=== PATIENT | female | born 1955 | race Caucasian/White ===

== ENCOUNTER → 2016-09-26 | Outpatient (CLI) | payer OTHER ==
--- NOTE | 2016-09-26 09:10 | CT ---
EXAMINATION TYPE: CT brain w con DATE OF EXAM: 09/26/2016 7:16 AM COMPARISON: NONE HISTORY: Memory Loss for about [address] DLP: 1036 mGycm Automated exposure control for dose reduction was used. CONTRAST: CT scan of the head is performed with IV Contrast, patient injected with 100 mL of Omnipaque 300. FINDINGS: There is no abnormal enhancing mass or midline shift identified. The ventricles and sulci are within normal limits in size. [place]-white matter differentiation is preserved. The globes are intact and th e visualized sinuses are clear. IMPRESSION: Unremarkable study.
== END ==
LOC: RADCTMAIN 06:45
PROVIDERS: ATTEND Family Medicine
DX: R41.83 Borderline intellectual functioning (principal)
CPT/HCPCS: 70460; Q9967

== ENCOUNTER → 2017-08-23 | Outpatient (CLI) | payer OTHER ==
--- NOTE | 2017-08-23 19:55 | EEG ---
ELECTROENCEPHALOGRAM REPORT DATE OF SERVICE: 08/23/2017. REASON FOR TESTING: Seizures. CURRENT ANTIEPILEPTIC MEDICATIONS: Keppra. DESCRIPTION OF THE PROCEDURE: This EEG was performed using a 21 channel digital electroencephalograph, following international 10-20 system. DESCRIPTION OF THE RECORDING: From the beginning of the tracing, with patient's eyes closed, the background rhythm was mostly consisting of 9-10 Hz alpha frequency in the posterior occipital leads. No obvious asymmetry is seen. Photic stimulation was performed with a good driving response seen. No pathological waves were elicited. Hyperventilation was not performed. Occasional muscle artifacts are seen. The patient remains awake throughout the tracing. No epileptiform discharges were seen. Her EKG lead showed a regular rate and rhythm. INTERPRETATION: This awake EEG can be considered within normal limits. There was no asymmetry seen. No epileptiform discharges were noticed. The absence of epileptiform discharges does not rule out the diagnosis of epilepsy; therefore clinical correlation is recommended. Thank you, Dr. Griffith, for allowing me for allowing me to participate in the care of your patient. If you have any questions, please feel free to contact me. MMODL / IJN: [id number] /
== END | disposition home or self-care (01) ==
LOC: NEUROMAIN 09:23
PROVIDERS: ATTEND Family Medicine
DX: G40.89 Other seizures (principal)
CPT/HCPCS: 95819

== ENCOUNTER 2020-06-27 00:22 | Emergency (ER) | payer OTHER ==
[2020-06-27] MEDS ORDERED: diphenhydrAMINE 50 MG/ML 1 ML VIAL IVP STA (01:01)
[2020-06-27] MEDS ORDERED: METOCLOPRAMIDE 5 MG/ML 2 ML VIAL IVP STA (01:01)
[2020-06-27] MEDS ORDERED: MORPHINE SULFATE 4 MG/ML SYRINGE IV STA (01:01)
[2020-06-27] MEDS ORDERED: SODIUM CHLORIDE 0.9% 1,000 ML IV STA (01:01)
[2020-06-27] MEDS ORDERED: SODIUM CHLORIDE 0.9% 500 ML 500 ML IV STA (01:01)
[2020-06-27 01:44] LABS: Basophils % (A) 1 %; Eosinophils % (A) 0 %; HCT 44.8 % (34.0-46.0); HGB 15.5 gm/dL (11.4-16.0); Lymphocytes # (A) 0.7 k/uL (1.0-4.8); Lymphocytes % (A) 17 %; MCH 29.6 pg (25.0-35.0); MCHC 34.5 g/dL (31.0-37.0); MCV 85.6 fL (80.0-100.0); Mean Platelet Volume 7.1; Monocytes # (A) 0.2 k/uL (0-1.0); Monocytes % (A) 5 %; Neutrophils # (A) 3.2 k/uL (1.3-7.7); Neutrophils % (A) 75 %; Platelet Count 252 k/uL (150-450); RBC 5.24 m/uL (3.80-5.40); RDW 12.8 % (11.5-15.5); WBC 4.3 k/uL (3.8-10.6)
[2020-06-27 01:55] LABS: ALT 15 U/L (4-34); AST 30 U/L (14-36); African American GFR (CKD) >90 (>60 ml/min/1.73 sqM); Albumin 4.1 g/dL (3.5-5.0); Alkaline Phosphatase 47 U/L (38-126); Anion Gap 12 mmol/L; Blood Urea Nitrogen 23 mg/dL (7-17); C Reactive Protein 41.5 mg/L (<10.0); Calcium 9.7 mg/dL (8.4-10.2); Carbon Dioxide 21 mmol/L (22-30); Chloride 102 mmol/L (98-107); Glucose 105 mg/dL (74-99); Lipase 128 U/L (23-300); Non-African American GFR(CKD) >90 (>60 ml/min/1.73 sqM); Potassium 4.2 mmol/L (3.5-5.1); Sodium 135 mmol/L (137-145); Total Bilirubin 0.6 mg/dL (0.2-1.3); Total Protein 7.1 g/dL (6.3-8.2)
--- NOTE | 2020-06-27 02:53 | ED ---
General Adult HPI - General Chief complaint: Shortness of Breath Stated complaint: ALYCIA, Covid + Time Seen by Provider: 06/27/20 00:30 Source: patient Mode of arrival: wheelchair Limitations: no limitations - History of Present Illness Initial comments: 64-year-old female patient presents to the emergency department today for evaluation of nausea. Patient states she was diagnosed with Covid on . States she started having symptoms on Sunday. States that she is having some vomiting. She does have a slight cough. Denies shortness of breath. States she is having mild discomfort to her chest. She denies any diarrhea. Denies abdominal pain. Denies any fever or chills. Patient denies any recent rash, back pain, numbness, tingling, dizziness, weakness, hematuria, dysuria, urinary urgency, urinary frequency, headache, visual changes, or any other complaints. - Related Data Home Medications Medication Instructions Recorded Confirmed Cholecalciferol [Vitamin D3 (25 5,000 unit PO DAILY 06/27/17 06/27/17 Mcg = 1000 Iu)] HYDROcodone/APAP 7.5-325MG [[place] 1 tab PO Q4H PRN 06/27/17 06/27/17 7.5-325] Pravastatin Sodium [Pravachol] 20 mg PO DAILY 06/27/17 06/27/17 Previous Rx's Medication Instructions Recorded levETIRAcetam [Keppra] 750 mg PO Q12H #180 tab 06/29/17 Allergies Allergy/AdvReac Type Severity Reaction Status Date / Time No Known Allergies Allergy Verified 06/27/20 00:38 Review of Systems ROS Statement: Those systems with pertinent positive or pertinent negative responses have been documented in the HPI. ROS Other: All systems not noted in ROS Statement are negative. Past Medical History Past Medical History: Fibromyalgia History of Any Multi-Drug Resistant Organisms: None Reported Past Surgical History: Hysterectomy, Orthopedic Surgery Past Psychological History: No Psychological Hx Reported Smoking Status: Never smoker Past Alcohol Use History: None Reported Past Drug Use History: None Reported General Exam Limitations: no limitations General appearance: alert, in no apparent distress, other (Physical well- developed, well-nourished adult female patient in no acute distress. Vital signs upon presentation are temperature 99.3F, pulse 80, respirations 20, blood pressure 131/66, pulse ox 93% on room air.) Eye exam: Present: normal appearance, PERRL, EOMI. Absent: scleral icterus, conjunctival injection, periorbital swelling ENT exam: Present: normal exam, normal oropharynx, mucous membranes moist Respiratory exam: Present: normal lung sounds bilaterally. Absent: respiratory distress, wheezes, rales, rhonchi, stridor Cardiovascular Exam: Present: regular rate, normal rhythm, normal heart sounds. Absent: systolic murmur, diastolic murmur, rubs, gallop, clicks GI/Abdominal exam: Present: soft, normal bowel sounds. Absent: distended, tenderness, guarding, rebound, rigid Neurological exam: Present: alert, oriented X3, CN II-XII intact Psychiatric exam: Present: normal affect, normal mood Skin exam: Present: warm, dry, intact, normal color. Absent: rash Course Vital Signs 06/27/20 06/27/20 06/27/20 00:35 00:38 02:23 Temperature 99.3 F Pulse Rate 80 Respiratory 20 18 Rate Blood Pressure 131/66 O2 Sat by Pulse 93 L 96 Oximetry 06/27/20 02:29 Temperature Pulse Rate 78 Respiratory 14 Rate Blood Pressure O2 Sat by Pulse 97 Oximetry EKG Findings - EKG Comments: EKG Findings:: EKG obtained at shows normal sinus rhythm with a ventricular rate is 76, TN interval 122, QRS duration 82, QT 414, QTC 465. No evidence of ST elevation or depression. Medical Decision Making - Medical Decision Making 63-year-old female patient presents to the emergency department today for evaluation of nausea. Patient states she was diagnosed with Covid on . States that she has been unable to eat or drink. It has been taking Zofran without relief. Physical examination was unremarkable. Abdomen is soft and nontender. Lungs are clear to auscultation. Vital signs are satisfactory. She will be discharged to follow up with her primary care physician for recheck in 1-2 days. Given prescription for Reglan. Return parameters were discussed in detail. She verbalizes understanding and agrees with this plan. - Lab Data Result diagrams: 06/27/20 01:30 06/27/20 01:30 Lab Results 06/27/20 06/27/20 06/27/20 Range/Units 01:30 01:30 01:30 WBC 4.3 (3.8-10.6) k/uL RBC 5.24 (3.80-5.40) m/uL Hgb 15.5 (11.4-16.0) gm/dL Hct 44.8 (34.0-46.0) % MCV 85.6 (80.0-100.0) fL MCH 29.6 (25.0-35.0) pg MCHC 34.5 (31.0-37.0) g/dL RDW 12.8 (11.5-15.5) % Plt Count 252 (150-450) k/uL MPV 7.1 Neutrophils % 75 % Lymphocytes % 17 % Monocytes % 5 % Eosinophils % 0 % Basophils % 1 % Neutrophils # 3.2 (1.3-7.7) k/uL Lymphocytes # 0.7 L (1.0-4.8) k/uL Monocytes # 0.2 (0-1.0) k/uL Eosinophils # 0.0 (0-0.7) k/uL Basophils # 0.0 (0-0.2) k/uL D-Dimer (<0.60) mg/L FEU Sodium 135 L (137-145) mmol/L Potassium 4.2 (3.5-5.1) mmol/L Chloride 102 (98-107) mmol/L Carbon Dioxide 21 L (22-30) mmol/L Anion Gap 12 mmol/L BUN 23 H (7-17) mg/dL Creatinine 0.58 (0.52-1.04) mg/dL Est GFR (CKD-EPI)AfAm >90 (>60 ml/min/1.73 sqM) Est GFR (CKD-EPI)NonAf >90 (>60 ml/min/1.73 sqM) Glucose 105 H (74-99) mg/dL Plasma Lactic Acid Jose 1.0 (0.7-2.0) mmol/L Calcium 9.7 (8.4-10.2) mg/dL Total Bilirubin 0.6 (0.2-1.3) mg/dL AST 30 (14-36) U/L ALT 15 (4-34) U/L Alkaline Phosphatase 47 (38-126) U/L Troponin I (0.000-0.034) ng/mL C-Reactive Protein 41.5 H (<10.0) mg/L Total Protein 7.1 (6.3-8.2) g/dL Albumin 4.1 (3.5-5.0) g/dL Lipase 128 (23-300) U/L 06/27/20 06/27/20 Range/Units 01:30 01:30 WBC (3.8-10.6) k/uL RBC (3.80-5.40) m/uL Hgb (11.4-16.0) gm/dL Hct (34.0-46.0) % MCV (80.0-100.0) fL MCH (25.0-35.0) pg MCHC (31.0-37.0) g/dL RDW (11.5-15.5) % Plt Count (150-450) k/uL MPV Neutrophils % % Lymphocytes % % Monocytes % % Eosinophils % % Basophils % % Neutrophils # (1.3-7.7) k/uL Lymphocytes # (1.0-4.8) k/uL Monocytes # (0-1.0) k/uL Eosinophils # (0-0.7) k/uL Basophils # (0-0.2) k/uL D-Dimer 0.63 H (<0.60) mg/L FEU Sodium (137-145) mmol/L Potassium (3.5-5.1) mmol/L Chloride (98-107) mmol/L Carbon Dioxide (22-30) mmol/L Anion Gap mmol/L BUN (7-17) mg/dL Creatinine (0.52-1.04) mg/dL Est GFR (CKD-EPI)AfAm (>60 ml/min/1.73 sqM) Est GFR (CKD-EPI)NonAf (>60 ml/min/1.73 sqM) Glucose (74-99) mg/dL Plasma Lactic Acid Jose (0.7-2.0) mmol/L Calcium (8.4-10.2) mg/dL Total Bilirubin (0.2-1.3) mg/dL AST (14-36) U/L ALT (4-34) U/L Alkaline Phosphatase (38-126) U/L Troponin I <0.012 (0.000-0.034) ng/mL C-Reactive Protein (<10.0) mg/L Total Protein (6.3-8.2) g/dL Albumin (3.5-5.0) g/dL Lipase (23-300) U/L - Radiology Data Radiology results: report reviewed, image reviewed Disposition Clinical Impression: COVID-19, Nausea Disposition: HOME SELF-CARE Condition: Good Instructions (If sedation given, give patient instructions): Acute Nausea and Vomiting (ED), Viral Syndrome (ED) Additional Instructions: Take medications as directed. [place] diet. Increase fluids. Follow-up through primary care physician for recheck in 1-2 days. Return to the emergency department for any new, worsening, or concerning symptoms. Is patient prescribed a controlled substance at d/c from ED?: No Referrals: German Griffith DO [Primary Care Provider] - 1-2 days Time of Disposition: 03:39
[2020-06-27 04:05] VITALS: BP 115/62; PULSE 76; RESP 16; TEMP 98.9
== END 2020-06-27 04:05 | disposition home or self-care (01) ==
LOC: EC 00:22
DX: U07.1 COVID-19 (principal); R11.0 Nausea; Z90.710 Acquired absence of both cervix and uterus
CPT/HCPCS: 36415; 93005; 85379; 80053; 83605; 83690; 84484; 85025; 86140; 99285; 96374; 96375 ×2; 96361; J2270; J1200; J2765

== ENCOUNTER 2022-10-29 15:12 | Emergency (ER) | payer MEDICARE, OTHER ==
[2022-10-29 15:19] VITALS: BP 120/66; PULSE 68; RESP 20; TEMP 97.4
--- NOTE | 2022-10-29 15:44 | ED ---
General Adult HPI - General Chief complaint: Skin/Abscess/Foreign Body Stated complaint: insect bite left side Time Seen by Provider: 10/29/22 15:29 Source: patient Mode of arrival: ambulatory Limitations: no limitations - History of Present Illness Initial comments: Dictation was produced using [employer] dictation software. please excuse any grammatical, word or spelling errors. Chief Complaint: 67-year-old female presents emergency problem left flank rash History of Present Illness: Patient 67-year-old female presents with left flank rash. She noticed it yesterday. She believes that she was bit by a tick. She goes outside often doing the outdoors work. Patient reports that the area is pruritic. Showing complains of some mild pain and pruritus over were it is erythematous. He has any other complaints. The ROS documented in this emergency department record has been reviewed and confirmed by me. Those systems with pertinent positive or negative responses have been documented in the HPI. All other systems are other negative and/or noncontributory. - Related Data Home Medications Medication Instructions Recorded Confirmed Cholecalciferol [Vitamin D3 (25 5,000 unit PO DAILY 06/27/17 06/27/17 Mcg = 1000 Iu)] HYDROcodone/APAP 7.5-325MG [[place] 1 tab PO Q4H PRN 06/27/17 06/27/17 7.5-325] Pravastatin Sodium [Pravachol] 20 mg PO DAILY 06/27/17 06/27/17 Previous Rx's Medication Instructions Recorded levETIRAcetam [Keppra] 750 mg PO Q12H #180 tab 06/29/17 Cephalexin [Keflex] 500 mg PO Q12HR 7 Days #14 cap 10/29/22 Allergies Allergy/AdvReac Type Severity Reaction Status Date / Time Sulfa (Sulfonamide Allergy Rash/Hives Verified 10/29/22 15:19 Antibiotics) Review of Systems ROS Statement: Those systems with pertinent positive or pertinent negative responses have been documented in the HPI. ROS Other: All systems not noted in ROS Statement are negative. Past Medical History Past Medical History: Fibromyalgia, Seizure Disorder History of Any Multi-Drug Resistant Organisms: None Reported Past Surgical History: Hysterectomy, Orthopedic Surgery Past Psychological History: No Psychological Hx Reported Smoking Status: Never smoker Past Alcohol Use History: None Reported Past Drug Use History: None Reported General Exam - General Exam Comments Initial Comments: PHYSICAL EXAM: General Impression: Alert and oriented x3, not in acute distress HEENT: Normocephalic atraumatic, extra-ocular movements intact, pupils equal and reactive to light bilaterally, mucous membranes moist. Cardiovascular: Heart regular rate and rhythm Chest: Able to complete full sentences, no retractions, no tachypnea Abdomen: abdomen soft, non-tender, non-distended, no organomegaly Musculoskeletal: Pulses present and equal in all extremities, no peripheral edema Motor: no focal deficits noted Neurological: CN II-XII grossly intact, no focal motor or sensory deficits noted Skin: Erythematous circular rash to the left flank. There is a satellite area that smaller. Rest and totality measures approximately 4 x 2 cm. There does appear to be a little what appears to be like puncture wound to the center of that. It is not targetoid in appearance. No induration, erythema is blanching Psych: Normal affect and mood Limitations: no limitations Course Vital Signs 10/29/22 15:16 Temperature 97.4 F L Pulse Rate 68 Respiratory 20 Rate Blood Pressure 120/66 O2 Sat by Pulse 95 Oximetry Medical Decision Making - Medical Decision Making Was pt. sent in by a medical professional or institution (, PA, SPECIAL PROCEDURES TECH, urgent care, hospital, or intermediate...) When possible be specific @ -No Did you speak to anyone other than the patient for history (EMS, parent, family, police, friend...)? What history was obtained from this source @ -No Did you review nursing and triage notes (agree or disagree)? Why? @ -I reviewed and agree with nursing and triage notes Were old charts reviewed (outside hosp., previous admission, EMS record, old EKG, old radiological studies, urgent care reports/EKG's, intermediate records)? Report findings @ -No old charts were reviewed Differential Diagnosis (chest pain, altered mental status, abdominal pain women, abdominal pain men, vaginal bleeding, musculoskeletal, weakness, fever, dyspnea, syncope, headache, dizziness, GI bleed, back pain, seizure, CVA, palpatations, mental health)? @ -Lyme disease, Adel spotted fever, shingles, cellulitis EKG interpreted by me (3pts min.). @ -None done X-rays interpreted by me (1pt min.). @ -None done CT interpreted by me (1pt min.). @ -None done U/S interpreted by me (1pt. min.). @ -None done What testing was considered but not performed or refused? (CT, X-rays, U/S, labs)? Why? @ -None What meds were considered but not given or refused? Why? @ -None Did you discuss the management of the patient with other professionals (professionals i.e. DrMook, PA, SPECIAL PROCEDURES TECH, lab, RT, psych nurse, social work assistant, flight director, teacher, artillery officer, dependency case manager)? Give summary @ -No Was smoking cessation discussed for >3mins.? @ -No Was critical care preformed (if so, how long)? @ -No Were there social determinants of health that impacted care today? How? (Homelessness, low income, unemployed, alcoholism, drug addiction, transportation, low edu. Level, literacy, decrease access to med. care, intermediate, rehab)? @ -No Was there de-escalation of care discussed even if they declined (Discuss DNR or withdrawal of care, Hospice)? DNR status @ -No What co-morbidities impacted this encounter? (DM, HTN, Smoking, COPD, CAD, Cancer, CVA, ARF, Chemo, Hep., AIDS, mental health diagnosis, sleep apnea, morbid obesity)? @ -None Was patient admitted / discharged? Hospital course, mention meds given and route, prescriptions, significant lab abnormalities, going to OR and other pertinent info. @ -67-year-old female presents emergency Department with what appears to be a local reaction to unspecified bug bite. Patient lives in [place]. This area is not endemic to Lyme disease. She does appear to have a local reaction with surrounding erythema. Vital signs are stable. Patient told to follow-up with primary care doctor. She is given and Biaxin for possible local reaction. Patient told of the symptoms of shingles and Lyme disease and to follow-up with primary care doctor if she has any of those symptoms. Undiagnosed new problem with uncertain prognosis? @ -No Drug Therapy requiring intensive monitoring for toxicity (Heparin, Nitro, Insulin, Cardizem)? @ -No Were any procedures done? @ -No Diagnosis/symptom? Acute, or Chronic, or Acute on Chronic? Uncomplicated (without systemic symptoms) or Complicated (systemic symptoms)? @ -1. Local reaction Side effects of treatment? @ -No Exacerbation, Progression, or Severe Exacerbation? @ -No Poses a threat to life or bodily function? How? (Chest pain, [place], [place], pneumonia, PE, COPD, DKA, ARF, appy, cholecystitis, CVA, Diverticulitis, Homicidal, Suicidal, threat to staff... and all critical care pts) @ -No Disposition Clinical Impression: Rash Disposition: HOME SELF-CARE Condition: Good Instructions (If sedation given, give patient instructions): Acute Rash (ED) Prescriptions: Cephalexin [Keflex] 500 mg PO Q12HR 7 Days #14 cap Is patient prescribed a controlled substance at d/c from ED?: No Referrals: German Griffith DO [Primary Care Provider] - 1-2 days Time of Disposition: 15:43
--- NOTE | 2022-10-29 16:03 | ED ---
Disposition Clinical Impression: Rash Disposition: HOME SELF-CARE Condition: Good Instructions (If sedation given, give patient instructions): Acute Rash (ED) Prescriptions: Clindamycin [Cleocin] 150 mg PO Q6H 5 Days #20 cap Referrals: German Griffith DO [Primary Care Provider] - 1-2 days
== END 2022-10-29 16:10 | disposition home or self-care (01) ==
LOC: EC 15:12
DX: R21 Rash and other nonspecific skin eruption (principal); Z88.2 Allergy status to sulfonamides
CPT/HCPCS: 99282

== ENCOUNTER → 2023-05-04 | Outpatient (CLI) | payer MEDICARE, OTHER ==
--- NOTE | 2023-05-04 12:10 | US ---
EXAMINATION TYPE: US arterial LE single level DATE OF EXAM: 05/04/2023 11:21 AM CLINICAL INDICATION: Female, 67 years old with history of I70.202 UNSP ATHSCL [place] ARTERIES OF EXTR EMITIES; History of: Smoker: No Hypertension: No Diabetic: No Hyperlipidemia: Yes TIA/CVA: No Previous Vascular Surgery: No CAD: No [place]: No Vascular Ulcers: Yes; left big toe Claudication: No Gangrene: No Doppler Waveforms: Right: Monophasic Left: Monophasic Right Brachial Pressure: 135 Left Brachial Pressure: 129 Ankle-Brachial Indices: Right: 1.01 Left: 1.02 (Vessel hardening > 1.4; Normal 0.9 - 1.4, Moderate 0.7 - 0.9, Severe 0.5-0.7) Toe Brachial Indices: Patient refused toe pressure due to pain. Patient refused to go past single level MIRELLA. IMPRESSION: Ankle-brachial indices within normal limits bilaterally.
== END | disposition home or self-care (01) ==
LOC: RADUSWWP 10:42
PROVIDERS: ATTEND Podiatrist Foot & Ankle Surgery
DX: I70.202 Unspecified atherosclerosis of native arteries of extremities, left leg (principal); L89.892 Pressure ulcer of other site, stage 2
CPT/HCPCS: 93922

== ENCOUNTER 2023-05-12 01:50 | Inpatient (IN) | payer MEDICARE, OTHER ==
[2023-05-12] MEDS ORDERED: SODIUM CHLORIDE 0.9% 1,000 ML IV STA (02:19)
[2023-05-12] MEDS ORDERED: ACETAMINOPHEN TAB 325 MG TAB PO STA (02:19)
[2023-05-12] MEDS ORDERED: SODIUM CHLORIDE 0.9% 1,000 ML IV ONE ×5 (02:19→14:15)
[2023-05-12 03:40] LABS: HCT 34.2 % (34.0-46.0); HGB 11.2 gm/dL (11.4-16.0); MCH 30.6 pg (25.0-35.0); MCHC 32.7 g/dL (31.0-37.0); MCV 93.5 fL (80.0-100.0); Mean Platelet Volume 8.3; RBC 3.66 m/uL (3.80-5.40); RDW 13.9 % (11.5-15.5); WBC 4.3 k/uL (3.8-10.6)
[2023-05-12 03:43] LABS: ALT 22 U/L (4-34); AST 49 U/L (14-36); African American GFR (CKD) 51 (>60 ml/min/1.73 sqM); Albumin 2.6 g/dL (3.5-5.0); Alkaline Phosphatase 46 U/L (38-126); Amylase 39 U/L (30-110); Anion Gap 12 mmol/L; Blood Urea Nitrogen 33 mg/dL (7-17); Calcium 7.9 mg/dL (8.4-10.2); Carbon Dioxide 14 mmol/L (22-30); Chloride 115 mmol/L (98-107); Glucose 91 mg/dL (74-99); Lipase 106 U/L (23-300); Non-African American GFR(CKD) 45 (>60 ml/min/1.73 sqM); Potassium 3.4 mmol/L (3.5-5.1); Sodium 141 mmol/L (137-145); Total Bilirubin 1.5 mg/dL (0.2-1.3); Total Protein 4.9 g/dL (6.3-8.2)
[2023-05-12 04:31] LABS: Band Neutrophils % 34 %; Eosinophils # (M) 0.09 k/uL (0-0.7); Neutrophils % (M) 57 %; Nucleated Red Blood Cells 0 /100 WBC (0-0); Total Cells Counted 200
[2023-05-12 04:32] LABS: Toxic Granulation Present; Toxic Vacuolation Present
[2023-05-12 04:33] LABS: Platelet Count 49 k/uL (150-450)
[2023-05-12] MEDS ORDERED: NALOXONE 0.4 MG/ML 1 ML VIAL IV PRN (04:52)
[2023-05-12] MEDS ORDERED: ACETAMINOPHEN TAB 325 MG TAB PO PRN (04:52)
[2023-05-12] MEDS: SODIUM CHLORIDE 0.9% 1,000 ML IV SCH ×3 (05:04→17:14)
[2023-05-12] MEDS ORDERED: LORazepam 2 MG/ML INJ IV STA (05:04)
[2023-05-12] MEDS ORDERED: MORPHINE SULFATE 4 MG/ML SYRINGE IV STA (06:32)
--- NOTE | 2023-05-12 08:08 | ED ---
Abdominal Pain HPI - General Chief Complaint: Abdominal Pain Stated Complaint: Sepsis Time Seen by Provider: 05/12/23 02:19 Source: EMS Mode of arrival: EMS Limitations: no limitations - History of Present Illness Initial Comments: This patient is a 67-year-old woman who is transferred here from Hospital to have further treatment for abdominal pain, suspected due to kidney stone with associated sepsis. The patient had gone to the other facility in the afternoon and was diagnosed with a left-sided kidney stone. She was discharged to home but she continued to have pain and was feeling worse. She return to the other hospital where she was found to be hypotensive. Computed tomography scan which reportedly showed proximal left sided kidney stone with hydronephrosis. The patient's was found to be hypotensive. When she arrives here she states that the pain is in the left lower quadrant and the left flank. She has had nausea vomiting. She has not noted change in bowel movements. She states she has frequent urge to urinate but not passing much urine. MD Complaint: abdominal pain, flank pain Onset/Timin -: days(s) Location: LLQ, L flank Severity: severe Quality: aching, sharp Consistency: colicky Improves With: nothing Worsens With: nothing Associated Symptoms: nausea, vomiting, fever - Related Data Home Medications Medication Instructions Recorded Confirmed HYDROcodone/APAP 7.5-325MG [[place] 1 tab PO Q4H PRN 06/27/17 05/12/23 7.5-325] Pravastatin Sodium [Pravachol] 20 mg PO DAILY 06/27/17 05/12/23 Aspirin EC [Ecotrin Low Dose] 81 mg PO DAILY 05/12/23 05/12/23 Celecoxib [CeleBREX] 200 mg PO BID 05/12/23 05/12/23 Cephalexin [Keflex] 500 mg PO Q6HR 05/12/23 05/12/23 Cholecalciferol [Vitamin D3 (125 125 mcg PO DAILY 05/12/23 05/12/23 Mcg = 5000 Iu)] Fenofibrate,Micronized 200 mg PO DAILY 05/12/23 05/12/23 [Fenofibrate] Ondansetron Odt [Zofran ODT] 4 mg PO TID PRN 05/12/23 05/12/23 Pantoprazole [Protonix] 40 mg PO DAILY 05/12/23 05/12/23 levETIRAcetam [Keppra] 500 mg PO Q12HR 05/12/23 05/12/23 Allergies Allergy/AdvReac Type Severity Reaction Status Date / Time Sulfa (Sulfonamide Allergy Rash/Hives Verified 05/12/23 11:31 Antibiotics) Review of Systems ROS Statement: Those systems with pertinent positive or pertinent negative responses have been documented in the HPI. ROS Other: All systems not noted in ROS Statement are negative. Constitutional: Reports: fever, weakness Respiratory: Denies: cough, dyspnea Cardiovascular: Denies: chest pain, palpitations Gastrointestinal: Reports: abdominal pain, nausea, vomiting. Denies: diarrhea, constipation Genitourinary: Reports: urgency, frequency. Denies: dysuria, hematuria Musculoskeletal: Denies: back pain Skin: Denies: rash Neurological: Denies: headache, weakness, numbness Past Medical History Past Medical History: Fibromyalgia, Hyperlipidemia, Seizure Disorder History of Any Multi-Drug Resistant Organisms: None Reported Past Surgical History: Hysterectomy, Orthopedic Surgery Past Psychological History: No Psychological Hx Reported Smoking Status: Never smoker Past Alcohol Use History: None Reported Past Drug Use History: None Reported - Past Family History Father Family Medical History: Deep Vein Thrombosis (DVT) Mother Family Medical History: Osteoarthritis (OA) General Exam General appearance: alert, in no apparent distress Head exam: Present: atraumatic, normocephalic Eye exam: Present: normal appearance. Absent: scleral icterus, conjunctival injection ENT exam: Present: mucous membranes dry Neck exam: Present: normal inspection Respiratory exam: Present: normal lung sounds bilaterally. Absent: respiratory distress, wheezes, rales, rhonchi, stridor Cardiovascular Exam: Present: regular rate, normal rhythm, normal heart sounds. Absent: systolic murmur, diastolic murmur, rubs, gallop GI/Abdominal exam: Present: soft. Absent: distended, tenderness, guarding, rebound, rigid, mass Extremities exam: Present: normal inspection, normal capillary refill. Absent: pedal edema, calf tenderness Back exam: Present: normal inspection. Absent: CVA tenderness (R), CVA tende rness (L) Neurological exam: Present: alert Skin exam: Present: warm, dry, intact, normal color. Absent: rash Course Vital Signs 05/12/23 05/12/23 05/12/23 01:56 02:20 02:50 Temperature 100.7 F H Pulse Rate 86 86 85 Respiratory 18 20 20 Rate Blood Pressure 80/47 80/46 83/47 O2 Sat by Pulse 93 L 95 95 Oximetry 05/12/23 05/12/23 05/12/23 03:20 05:00 06:14 Temperature 99.9 F H Pulse Rate 85 87 84 Respiratory 18 20 20 Rate Blood Pressure 85/59 86/59 83/48 O2 Sat by Pulse 95 96 96 Oximetry 05/12/23 05/12/23 05/12/23 06:52 07:29 08:10 Temperature 97.9 F Pulse Rate 84 80 82 Respiratory 20 20 20 Rate Blood Pressure 90/51 73/47 76/44 O2 Sat by Pulse 95 94 L Oximetry 05/12/23 05/12/23 09:28 10:00 Temperature Pulse Rate 84 86 Respiratory 18 20 Rate Blood Pressure 75/46 75/42 O2 Sat by Pulse 94 L 94 L Oximetry Procedures - Sepsis Sepsis Focused Exam #1 Sepsis Focused Exam Complete: Yes Vital Signs & RN Notes Reviewed: Yes Capillary Refill: < 2 Seconds: Fingers Peripheral Pulses: Normal: Radial (R) Skin Color: Pallor Respiratory Exam: normal lung sounds Cardiovascular Exam: regular rate, normal rhythm Medical Decision Making - Medical Decision Making Patient is a 67-year-old woman here for left-sided kidney stone with associated sepsis. At the other facility, the patient had received dose of Rocephin, 1 gram. She had received 2 L saline bolus. On arrival here, the patient's is given additional 1 gm of Rocephin and additional fluids. Case discussed with Dr. Garcia who will admit for stone associated with sepsis. Case discussed with Dr. Case, regarding patient's continued hypotension. Patient is scheduled to go for stent placement in the morning when OR team available. Was pt. sent in by a medical professional or institution (, PA, RECOVERY ADVOCATE, urgent care, hospital, or alf...) When possible be specific @ -The patient is transferred here from the outside hospital Did you speak to anyone other than the patient for history (EMS, parent, family, police, friend...)? What history was obtained from this source @ -[I did speak with the transferring physician Did you review nursing and triage notes (agree or disagree)? Why? @ -[I reviewed and agree with nursing and triage notes] Were old charts reviewed (outside hosp., previous admission, EMS record, old EKG, old radiological studies, urgent care reports/EKG's, alf records)? Report findings @ -[Transfer records were reviewed] Differential Diagnosis (chest pain, altered mental status, abdominal pain women, abdominal pain men, vaginal bleeding, weakness, fever, dyspnea, syncope, headache, dizziness, GI bleed, back pain, seizure, CVA, palpatations, mental health, musculoskeletal)? @ -[Differential Abdominal Pain Women: Appendicitis, Cholecystitis, diverticulosis, ischemic bowel, pancreatitis, hepatitis, UTI, gastroenteritis, AAA, incarcerated hernia, bowel obstruction, constipation, inflammatory bowel, hepatitis, peptic ulcer disease, splenic infarction, perforated viscus, vulvitis, ovarian torsion, PID, kidney stone, placenta abruption, this is not meant to be an all-inclusive list EKG interpreted by me (3pts min.). @ -[As above] X-rays interpreted by me (1pt min.). @ -[None done] CT interpreted by me (1pt min.). @ -[None done] U/S interpreted by me (1pt. min.). @ -[None done] What testing was considered but not performed or refused? (CT, X-rays, U/S, labs)? Why? @ -[None] What meds were considered but not given or refused? Why? @ -[None] Did you discuss the management of the patient with other professionals (professionals i.e. , PA, RECOVERY ADVOCATE, lab, RT, psych nurse, nephrology social worker, policy officer, teacher, operational intelligence officer, registered nurse hh case manager)? Give summary @ -[No] Was smoking cessation discussed for >3mins.? @ -[No] Was critical care preformed (if so, how long)? @ -[Yes, 30 minutes Were there social determinants of health that impacted care today? How? (Homelessness, low income, unemployed, alcoholism, drug addiction, transportation, low edu. Level, literacy, decrease access to med. care, usp, rehab)? @ -[No] Was there de-escalation of care discussed even if they declined (Discuss DNR or withdrawal of care, Hospice)? DNR status @ -[No] What co-morbidities impacted this encounter? (DM, HTN, Smoking, COPD, CAD, Cancer, CVA, ARF, Chemo, Hep., AIDS, mental health diagnosis, sleep apnea, morbid obesity)? @ -[None] Was patient admitted / discharged? Hospital course, mention meds given and route, prescriptions, significant lab abnormalities, going to OR and other pertinent info. @ -[As above Undiagnosed new problem with uncertain prognosis? @ -[No] Drug Therapy requiring intensive monitoring for toxicity (Heparin, Nitro, Insulin, Cardizem)? @ -[No] Were any procedures done? @ -[No] Diagnosis/symptom? @ -[Acute kidney stone with hydronephrosis Urinary tract infection with sepsis Acute, or Chronic, or Acute on Chronic? @ -[Acute Uncomplicated (without systemic symptoms) or Complicated (systemic symptoms)? @ -[Complicated Side effects of treatment? @ -[No] Exacerbation, Progression, or Severe Exacerbation? @ -[No] Poses a threat to life or bodily function? How? (Chest pain, [place], [place], pneumonia, PE, COPD, DKA, ARF, appy, cholecystitis, CVA, Diverticulitis, Homicidal, Suicidal, threat to staff... and all critical care pts) @ -[Yes - Lab Data Result diagrams: 05/21/23 06:39 05/21/23 06:39 Lab Results 05/12/23 05/12/23 05/12/23 Range/Units 03:24 03:24 03:24 WBC 4.3 (3.8-10.6) k/uL RBC 3.66 L (3.80-5.40) m/uL Hgb 11.2 L (11.4-16.0) gm/dL Hct 34.2 (34.0-46.0) % MCV 93.5 (80.0-100.0) fL MCH 30.6 (25.0-35.0) pg MCHC 32.7 (31.0-37.0) g/dL RDW 13.9 (11.5-15.5) % Plt Count 49 L (150-450) k/uL MPV 8.3 Neutrophils % (Manual) 57 % Band Neuts % (Manual) 34 % Lymphocytes % (Manual) 7 % Eosinophils % (Manual) 2 % Neutrophils # (Manual) 3.90 (1.3-7.7) k/uL Lymphocytes # (Manual) 0.30 L (1.0-4.8) k/uL Eosinophils # (Manual) 0.09 (0-0.7) k/uL Nucleated RBCs 0 (0-0) /100 WBC Manual Slide Review Performed Toxic Granulation Present Toxic Vacuolation Present Sodium 141 (137-145) mmol/L Potassium 3.4 L (3.5-5.1) mmol/L Chloride 115 H (98-107) mmol/L Carbon Dioxide 14 L (22-30) mmol/L Anion Gap 12 mmol/L BUN 33 H (7-17) mg/dL Creatinine 1.26 H (0.52-1.04) mg/dL Est GFR (CKD-EPI)AfAm 51 (>60 ml/min/1.73 sqM) Est GFR (CKD-EPI)NonAf 45 (>60 ml/min/1.73 sqM) Glucose 91 (74-99) mg/dL Lactic Ac Sepsis Rflx Plasma Lactic Acid Jose 2.2 H* (0.7-2.0) mmol/L Calcium 7.9 L (8.4-10.2) mg/dL Total Bilirubin 1.5 H (0.2-1.3) mg/dL AST 49 H (14-36) U/L ALT 22 (4-34) U/L Alkaline Phosphatase 46 (38-126) U/L Troponin I (0.000-0.034) ng/mL Total Protein 4.9 L (6.3-8.2) g/dL Albumin 2.6 L (3.5-5.0) g/dL Amylase 39 (30-110) U/L Lipase 106 (23-300) U/L SARS-CoV-2 (PCR) (Not Detectd) 05/12/23 05/12/23 05/12/23 Range/Units 03:24 03:29 03:46 WBC (3.8-10.6) k/uL RBC (3.80-5.40) m/uL Hgb (11.4-16.0) gm/dL Hct (34.0-46.0) % MCV (80.0-100.0) fL MCH (25.0-35.0) pg MCHC (31.0-37.0) g/dL RDW (11.5-15.5) % Plt Count (150-450) k/uL MPV Neutrophils % (Manual) % Band Neuts % (Manual) % Lymphocytes % (Manual) % Eosinophils % (Manual) % Neutrophils # (Manual) (1.3-7.7) k/uL Lymphocytes # (Manual) (1.0-4.8) k/uL Eosinophils # (Manual) (0-0.7) k/uL Nucleated RBCs (0-0) /100 WBC Manual Slide Review Toxic Granulation Toxic Vacuolation Sodium (137-145) mmol/L Potassium (3.5-5.1) mmol/L Chloride (98-107) mmol/L Carbon Dioxide (22-30) mmol/L Anion Gap mmol/L BUN (7-17) mg/dL Creatinine (0.52-1.04) mg/dL Est GFR (CKD-EPI)AfAm (>60 ml/min/1.73 sqM) Est GFR (CKD-EPI)NonAf (>60 ml/min/1.73 sqM) Glucose (74-99) mg/dL Lactic Ac Sepsis Rflx Y Plasma Lactic Acid Jose (0.7-2.0) mmol/L Calcium (8.4-10.2) mg/dL Total Bilirubin (0.2-1.3) mg/dL AST (14-36) U/L ALT (4-34) U/L Alkaline Phosphatase (38-126) U/L Troponin I 0.086 H* (0.000-0.034) ng/mL Total Protein (6.3-8.2) g/dL Albumin (3.5-5.0) g/dL Amylase (30-110) U/L Lipase (23-300) U/L SARS-CoV-2 (PCR) Not Detected (Not Detectd) Disposition Clinical Impression: Sepsis, Calculus of ureter, Complicated UTI (urinary tract infection) Disposition: ADMITTED IP TO THIS HOSP Condition: Serious Is patient prescribed a controlled substance at d/c from ED?: No
--- NOTE | 2023-05-12 12:16 | P.GSHP ---
History of Present Illness H&P Date: 05/12/23 This is a 67-year-old female presented to the hospital as a transfer from [facility] for sepsis secondary to a ureteral stone. She presented to the hospital with left abdominal pain associated with fever, nausea and vomiting. Underwent a CT at [facility] which showed evidence of a 3 mm left-sided ureteral stone. On presentation patient was febrile and hypotensive. On evaluation in the ER she continues to have left abdominal pain associated with weakness. No previous history of kidney stones. Past Medical History Past Medical History: Fibromyalgia, Hyperlipidemia, Seizure Disorder History of Any Multi-Drug Resistant Organisms: None Reported Past Surgical History: Hysterectomy, Orthopedic Surgery Past Psychological History: No Psychological Hx Reported Smoking Status: Never smoker Past Alcohol Use History: None Reported Past Drug Use History: None Reported Medications and Allergies Home Medications Medication Instructions Recorded Confirmed Type HYDROcodone/APAP 7.5-325MG [[place] 1 tab PO Q4H PRN 06/27/17 05/12/23 History 7.5-325] Pravastatin Sodium [Pravachol] 20 mg PO DAILY 06/27/17 05/12/23 History Aspirin EC [Ecotrin Low Dose] 81 mg PO DAILY 05/12/23 05/12/23 History Celecoxib [CeleBREX] 200 mg PO BID 05/12/23 05/12/23 History Cephalexin [Keflex] 500 mg PO Q6HR 05/12/23 05/12/23 History Cholecalciferol [Vitamin D3 (125 125 mcg PO DAILY 05/12/23 05/12/23 History Mcg = 5000 Iu)] Fenofibrate,Micronized 200 mg PO DAILY 05/12/23 05/12/23 History [Fenofibrate] Ondansetron Odt [Zofran Odt] 4 mg PO TID PRN 05/12/23 05/12/23 History Pantoprazole [Protonix] 40 mg PO DAILY 05/12/23 05/12/23 History levETIRAcetam [Keppra] 500 mg PO Q12HR 05/12/23 05/12/23 History Allergies Allergy/AdvReac Type Severity Reaction Status Date / Time Sulfa (Sulfonamide Allergy Rash/Hives Verified 05/12/23 11:31 Antibiotics) Surgical - Exam Vital Signs Temp Pulse Resp BP Pulse Ox 100.7 F H 86 18 80/47 93 L 05/12/23 01:56 05/12/23 01:56 05/12/23 01:56 05/12/23 01:56 05/12/23 01:56 - General no distress, moderate pain - Eyes normal ocular movement, no pale - ENT normal nares, normal mucosa - Respiratory normal expansion, normal respiratory effort - Abdomen Abdomen: soft, tender (Left flank), no distended - Psychiatric oriented to time, oriented to person, oriented to place Results - Labs 05/12/23 03:24 05/12/23 03:24 Abnormal Lab Results - Last 24 Hours (Table) 05/12/23 05/12/23 05/12/23 Range/Units 03:24 03:24 03:24 RBC 3.66 L (3.80-5.40) m/uL Hgb 11.2 L (11.4-16.0) gm/dL Plt Count 49 L (150-450) k/uL Lymphocytes # (Manual) 0.30 L (1.0-4.8) k/uL Potassium 3.4 L (3.5-5.1) mmol/L Chloride 115 H (98-107) mmol/L Carbon Dioxide 14 L (22-30) mmol/L BUN 33 H (7-17) mg/dL Creatinine 1.26 H (0.52-1.04) mg/dL Plasma Lactic Acid Jose 2.2 H* (0.7-2.0) mmol/L Calcium 7.9 L (8.4-10.2) mg/dL Total Bilirubin 1.5 H (0.2-1.3) mg/dL AST 49 H (14-36) U/L Troponin I (0.000-0.034) ng/mL Total Protein 4.9 L (6.3-8.2) g/dL Albumin 2.6 L (3.5-5.0) g/dL 05/12/23 05/12/23 Range/Units 03:24 06:50 RBC (3.80-5.40) m/uL Hgb (11.4-16.0) gm/dL Plt Count (150-450) k/uL Lymphocytes # (Manual) (1.0-4.8) k/uL Potassium (3.5-5.1) mmol/L Chloride (98-107) mmol/L Carbon Dioxide (22-30) mmol/L BUN (7-17) mg/dL Creatinine (0.52-1.04) mg/dL Plasma Lactic Acid Jose 2.5 H* (0.7-2.0) mmol/L Calcium (8.4-10.2) mg/dL Total Bilirubin (0.2-1.3) mg/dL AST (14-36) U/L Troponin I 0.086 H* (0.000-0.034) ng/mL Total Protein (6.3-8.2) g/dL Albumin (3.5-5.0) g/dL Diabetes panel 05/12/23 Range/Units 03:24 Sodium 141 (137-145) mmol/L Potassium 3.4 L (3.5-5.1) mmol/L Chloride 115 H (98-107) mmol/L Carbon Dioxide 14 L (22-30) mmol/L BUN 33 H (7-17) mg/dL Creatinine 1.26 H (0.52-1.04) mg/dL Glucose 91 (74-99) mg/dL Calcium 7.9 L (8.4-10.2) mg/dL AST 49 H (14-36) U/L ALT 22 (4-34) U/L Alkaline Phosphatase 46 (38-126) U/L Total Protein 4.9 L (6.3-8.2) g/dL Albumin 2.6 L (3.5-5.0) g/dL Calcium panel 05/12/23 Range/Units 03:24 Calcium 7.9 L (8.4-10.2) mg/dL Albumin 2.6 L (3.5-5.0) g/dL Pituitary panel 05/12/23 Range/Units 03:24 Sodium 141 (137-145) mmol/L Potassium 3.4 L (3.5-5.1) mmol/L Chloride 115 H (98-107) mmol/L Carbon Dioxide 14 L (22-30) mmol/L BUN 33 H (7-17) mg/dL Creatinine 1.26 H (0.52-1.04) mg/dL Glucose 91 (74-99) mg/dL Calcium 7.9 L (8.4-10.2) mg/dL Adrenal panel 05/12/23 Range/Units 03:24 Sodium 141 (137-145) mmol/L Potassium 3.4 L (3.5-5.1) mmol/L Chloride 115 H (98-107) mmol/L Carbon Dioxide 14 L (22-30) mmol/L BUN 33 H (7-17) mg/dL Creatinine 1.26 H (0.52-1.04) mg/dL Glucose 91 (74-99) mg/dL Calcium 7.9 L (8.4-10.2) mg/dL Total Bilirubin 1.5 H (0.2-1.3) mg/dL AST 49 H (14-36) U/L ALT 22 (4-34) U/L Alkaline Phosphatase 46 (38-126) U/L Total Protein 4.9 L (6.3-8.2) g/dL Albumin 2.6 L (3.5-5.0) g/dL Assessment and Plan Assessment: 67-year-old female history of a 3 mm left-sided ureteral stone patient is septic secondary to her stone discussed with her given septic presentation recommended to proceed with left stent insertion. Discussed this is not a definitive management to address his stone and she will require further intervention for her stone after his sepsis resolves. Risk-benefit and rationale of surgery was discussed with her in detail. patient troponin is 0.098, this is most likely secondary to her sepsis as her blood pressure continues to be in the 70s over 40s, her lactate is trending up to 2.5 from 2.2. She is exhibiting no chest pain or EKG changes to indicate a cardiac event. We will continue to trend her troponins postoperatively -Keep nothing by mouth -Or for cystoscopy and left stent insertion
[2023-05-12] MEDS: SODIUM CHLORIDE 0.9% 1,000 ML IV ONE ×2 (12:21→16:46)
[2023-05-12] MEDS ORDERED: fentaNYL (PF) 50 MCG/ML 2 ML AMP ONE (12:29)
[2023-05-12] MEDS ORDERED: PROPOFOL 10 MG/ML 20 ML VIAL IV ONE (12:29)
[2023-05-12] MEDS ORDERED: LIDOCAINE 1% INJ 10MG/ML (20 ML MDV) ONE (12:29)
[2023-05-12] MEDS ORDERED: SUCCINYLCHOLINE CHLORIDE 200 MG/10 ML VIAL IV ONE (12:29)
[2023-05-12] MEDS ORDERED: SODIUM CHLORIDE 0.9% 50 ML with ceFAZolin 2,000 MG IV ONE ×2 (12:29)
[2023-05-12] MEDS ORDERED: PHENYLEPHRINE 10 MG/ML VIAL ONE (12:29)
[2023-05-12] MEDS: PHENYLEPHRINE-0.9% NACL SYG 1,000 MCG/10 ML SYRINGE IVP ONE ×5 (13:10→14:40)
--- NOTE | 2023-05-12 13:13 | P.OP ---
Date of Procedure: 05/12/23 Preoperative Diagnosis: left ureteral stone Postoperative Diagnosis: same Procedure(s) Performed: cystoscopy and a left stent insertion Implants: 6-Persian by 26 cm stent placed in the left ureter Anesthesia: ANURAG Surgeon: Fawad Loco Estimated Blood Loss (ml): 1 Pathology: none sent Condition: stable Disposition: PACU Indications for Procedure: 67-year-old female history of a 3 mm left-sided ureteral stone patient is septic secondary to her stone discussed with her given septic presentation recommended to proceed with left stent insertion. Discussed this is not a definitive management to address his stone and she will require further intervention for her stone after his sepsis resolves. Risk-benefit and rationale of surgery was discussed with her in detail. patient troponin is 0.098, this is most likely secondary to her sepsis as her blood pressure continues to be in the 70s over 40s, her lactate is trending up to 2.5 from 2.2. She is exhibiting no chest pain or EKG changes to indicate a cardiac event. We will continue to trend her troponins postoperatively Description of Procedure: patient brought to the operating room, general anesthesia was induced. She was prepped and draped in sterile fashion and placed in dorsal lithotomy position. Cystoscopy fitted 21-Persian sheath showed no abnormality within the bladder. Attention was then carried to the left ureteral orifice which was intubated with a sensor wire. Next a ureteral stent was passed over the wire, the proximal curl was visualized on fluoroscopy and the distal curl was visualized using the cystoscope. purulent urine drained from the kidney. 16-Persian Levy catheter was placed, with return of cloudy urine. Patient tolerated procedure well was taken to recovery in stable condition
--- NOTE | 2023-05-12 13:38 | FL ---
EXAMINATION TYPE: FL guidance operating room DATE OF EXAM: 05/12/2023 Comparison: None Clinical History: 67-year-old female left-sided stent placement Findings: 1 sec fl 0 .1172 mGycm2 DAP One image provided during left-sided stent placement. Impression: Fluoroscopy for urology procedure as above.
[2023-05-12] MEDS ORDERED: fentaNYL (PF) 50 MCG/ML 2 ML AMP IVP ONE (13:55)
[2023-05-12] MEDS: PHENYLEPHRINE 40 MG in SODIUM CHLORIDE 0.9% 250 ML IV SCH ×3 (14:30→19:44)
[2023-05-12 16:23] LABS: Glucose,Whole Blood 70 mg/dL (70-110)
[2023-05-12] MEDS: HYDROcodone/APAP 7.5-325MG 1 EACH TAB PO PRN ×2 (16:48→20:51)
--- NOTE | 2023-05-12 17:20 | P.CNPUL ---
History of Present Illness Consult date: 05/12/23 Chief complaint: Left flank pain, hypotension/sepsis History of present illness: This patient is 67, history of fibromyalgia, history of seizure disorder and hyperlipidemia, presented to us following a left ureteral stent insertion for a left ureteral stone and secondary infection sepsis. The patient became septic from a 3 mm left-sided ureteral stone and she had symptoms of pyelonephritis. Patient was taken to the operating room. The patient underwent cystoscopy with a left stent insertion. The postop, the patient became hypotensive. She was given a total of 3 L of IV fluids with normal saline. Currently she is on Robert- Synephrine at 1.9 mcg/kg/m. Awake and alert and communicating. Her pain along the left flank is subsided. No hematuria. Urine output is improving. UA and urine culture still pending for now. The patient on IV Rocephin 2 g every 24 hours. No altered mentation. No nausea and emesis. No other new complaints otherwise for now. Review of Systems Constitutional: Reports as per HPI, Reports fever Eyes: denies as per HPI, denies blurred vision, denies bulging eye, denies decreased vision, denies diplopia, denies discharge, denies dry eye, denies irritation, denies itching, denies pain, denies photophobia, denies loss of peripheral vision, denies loss of vision, denies tunnel vision/blind spots Ears: deny: decreased hearing, ear discharge, earache, tinnitus Ears, nose, mouth and throat: Reports as per HPI Breasts: absent: as per HPI, change in shape, gynecomastia, masses, nipple discharge, pain, skin changes, swelling Cardiovascular: Reports as per HPI Respiratory: Reports as per HPI Gastrointestinal: Reports abdominal pain Genitourinary: Reports as per HPI Menstruation: Reports as per HPI Musculoskeletal: Reports as per HPI Musculoskeletal: absent: ankle pain, ankle stiffness, ankle swelling Integumentary: Reports as per HPI Neurological: Reports as per HPI Psychiatric: Reports as per HPI Endocrine: Reports as per HPI Hematologic/Lymphatic: Reports as per HPI Allergic/Immunologic: Reports as per HPI Past Medical History Past Medical History: Fibromyalgia, Hyperlipidemia, Seizure Disorder History of Any Multi-Drug Resistant Organisms: None Reported Past Surgical History: Hysterectomy, Orthopedic Surgery Past Anesthesia/Blood Transfusion Reactions: No Reported Reaction Past Psychological History: No Psychological Hx Reported Smoking Status: Never smoker Past Alcohol Use History: None Reported Past Drug Use History: None Reported - Past Family History Father Family Medical History: Deep Vein Thrombosis (DVT) Mother Family Medical History: Osteoarthritis (OA) Medications and Allergies Home Medications Medication Instructions Recorded Confirmed Type HYDROcodone/APAP 7.5-325MG [[place] 1 tab PO Q4H PRN 06/27/17 05/12/23 History 7.5-325] Pravastatin Sodium [Pravachol] 20 mg PO DAILY 06/27/17 05/12/23 History Aspirin EC [Ecotrin Low Dose] 81 mg PO DAILY 05/12/23 05/12/23 History Celecoxib [CeleBREX] 200 mg PO BID 05/12/23 05/12/23 History Cephalexin [Keflex] 500 mg PO Q6HR 05/12/23 05/12/23 History Cholecalciferol [Vitamin D3 (125 125 mcg PO DAILY 05/12/23 05/12/23 History Mcg = 5000 Iu)] Fenofibrate,Micronized 200 mg PO DAILY 05/12/23 05/12/23 History [Fenofibrate] Ondansetron Odt [Zofran Odt] 4 mg PO TID PRN 05/12/23 05/12/23 History Pantoprazole [Protonix] 40 mg PO DAILY 05/12/23 05/12/23 History levETIRAcetam [Keppra] 500 mg PO Q12HR 05/12/23 05/12/23 History Allergies Allergy/AdvReac Type Severity Reaction Status Date / Time Sulfa (Sulfonamide Allergy Rash/Hives Verified 05/12/23 11:31 Antibiotics) Physical Exam Vitals: Vital Signs Temp Pulse Pulse Resp BP BP BP 05/12/23 17:00 89 28 H 108/57 05/12/23 16:45 93 30 H 106/61 05/12/23 16:30 95 25 H 96/73 05/12/23 16:19 98.5 F 96 24 95/68 05/12/23 15:35 101/59 05/12/23 15:13 95/61 05/12/23 15:00 81/51 05/12/23 14:43 78/50 05/12/23 14:30 89 16 84/51 05/12/23 14:15 88 16 76/47 05/12/23 14:00 89 16 70/49 05/12/23 13:45 93 16 89/52 05/12/23 13:30 91 16 78/46 05/12/23 13:15 91 16 81/46 05/12/23 13:08 98.1 F 92 16 91/46 05/12/23 12:20 89 16 71/44 05/12/23 12:10 91 16 76/48 05/12/23 12:05 86 16 69/40 05/12/23 12:00 84 16 68/45 05/12/23 11:31 82 18 79/48 05/12/23 10:00 86 20 75/42 05/12/23 09:28 84 18 75/46 05/12/23 08:10 82 20 76/44 05/12/23 07:29 97.9 F 80 20 73/47 05/12/23 06:52 84 20 90/51 05/12/23 06:14 84 20 83/48 05/12/23 05:00 87 20 86/59 05/12/23 03:20 99.9 F H 85 18 85/59 05/12/23 02:50 85 20 83/47 05/12/23 02:20 86 20 80/46 05/12/23 01:56 100.7 F H 86 18 80/47 Pulse Ox 05/12/23 17:00 92 L 05/12/23 16:45 93 L 05/12/23 16:30 93 L 05/12/23 16:19 93 L 05/12/23 15:35 05/12/23 15:13 05/12/23 15:00 05/12/23 14:43 05/12/23 14:30 94 L 05/12/23 14:15 94 L 05/12/23 14:00 94 L 05/12/23 13:45 94 L 05/12/23 13:30 94 L 05/12/23 13:15 94 L 05/12/23 13:08 94 L 05/12/23 12:20 95 05/12/23 12:10 95 05/12/23 12:05 95 05/12/23 12:00 95 05/12/23 11:31 94 L 05/12/23 10:00 94 L 05/12/23 09:28 94 L 05/12/23 08:10 94 L 05/12/23 07:29 05/12/23 06:52 95 05/12/23 06:14 96 05/12/23 05:00 96 05/12/23 03:20 95 05/12/23 02:50 95 05/12/23 02:20 95 05/12/23 01:56 93 L Intake and Output 05/12/23 05/12/23 05/12/23 06:59 14:59 22:59 Intake Total 1450 58.123 Output Total 1 Balance 1449 58.123 Intake: IV 1450 Intake, IV Titration 58.123 Amount Phenylephrine 40 mg In 58.123 Sodium Chloride 0.9% 250 ml @ 0.5 MCG/KG/MIN 14. 258 mls/hr IV .[id number] [facility] Rx#:[id number] Output: Estimated Blood Loss 1 Other: Weight 74.843 kg 74.843 kg The patient appeared well nourished and normally developed. Vital signs as documented. Head exam is unremarkable. The patient has an external jugular catheter on the right. No scleral icterus or corneal arcus noted. Neck is without jugular venous distension, thyromegaly, or carotid bruits. Carotid upstrokes are brisk bilaterally. Lungs are clear to auscultation and percussion. Cardiac exam reveals the PMI to be normally sized and situated. Rhythm is regul ar. First and second heart sounds normal. No murmurs, rubs or gallops. Abdominal exam reveals normal bowel sounds, no masses, no organomegaly and no aortic enlargement. Extremities are nonedematous and both femoral and pedal pulses are normal.Examination of the skin revealed no evidence of significant rashes, suspicious appearing nevi or other concerning lesions.Neurologically, the patient is awake and alert and the patient does not have any focal neurological deficit. Cranial nerves are essentially intact. Results - Laboratory Findings CBC and BMP: 05/12/23 03:24 05/12/23 03:24 Abnormal lab findings: Abnormal Labs 05/12/23 05/12/23 05/12/23 03:24 03:24 03:24 RBC 3.66 L Hgb 11.2 L Plt Count 49 L Lymphocytes # (Manual) 0.30 L Potassium 3.4 L Chloride 115 H Carbon Dioxide 14 L BUN 33 H Creatinine 1.26 H Plasma Lactic Acid Jose 2.2 H* Calcium 7.9 L Total Bilirubin 1.5 H AST 49 H Troponin I Total Protein 4.9 L Albumin 2.6 L 05/12/23 05/12/23 03:24 06:50 RBC Hgb Plt Count Lymphocytes # (Manual) Potassium Chloride Carbon Dioxide BUN Creatinine Plasma Lactic Acid Jose 2.5 H* Calcium Total Bilirubin AST Troponin I 0.086 H* Total Protein Albumin Assessment and Plan Plan: Septic shock, currently on IV fluids and pressors and antibiotics. Source being urinary. Left ureteral stone with a complicated urinary tract infection/pyonephritis and the patient is post cystoscopy and insertion of a left ureteral stent Acute hypoxic respiratory failure secondary to above currently on 4 L of O2 nasal cannula Lactic acidosis, improving Non-anion gap metabolic acidosis Fibromyalgia Hyperlipidemia History of seizure activity Plan Start the patient on bicarb infusion with a total of 150 mEq of sodium bicarbonate at the rate of 100 mL an hour Continue Robert-Synephrine infusion Titrate Robert-Synephrine to maintain immunosuppression was 60 Replace potassium Urine and blood cultures Monitor urine output Resume [place] Resume all medications We'll continue to follow
[2023-05-12] MEDS: ONDANSETRON 4 MG/2 ML VIAL IVP PRN (17:42)
[2023-05-12] MEDS: DEXTROSE 5% IN WATER 1,000 ML with SODIUM BICARB (1 MEQ/ML) 150 ML IV SCH (17:43)
--- NOTE | 2023-05-12 17:43 | P.CONS ---
History of Present Illness - Reason for Consult Consult date: 05/12/23 - Chief Complaint medical management - History of Present Illness 67 year old woman with history of fibromyalgia and chronic pain with narcotic dependence, seizure disorder, HLD who presented for flank pain, fevers, chills. Pt says that she has chronic bpain but for the last day she had symptoms of severe sharp back/flank ain on the left side which did not improve with medication. She presented to the hospital for further evaluation. She reports fevers, chills, nausea. Denies emesis. Denies cp, palps, syncope, presyncope. Upon my evaluation, patient was afebrile, 95/68, heart rate 96, 93% on 4 L nasal cannula. CBC demonstrated hemoglobin of 11.2 with no white blood cell count elevation, platelets of 49. Basic metabolic panel showed potassium of 3.4, chloride of 115, CO2 14, no anion gap, BUN of 33, creatinine 1.26. Calcium was 7.9. Liver function tests showed elevated total bilirubin at 1.5, AST 49, ALT of 22, albumin of 2.6. Lipase was 106, amylase was 39. Lactic acid is 1.3. Troponins 0.086. Covid was negative. Patient was taken to the operating room where she underwent cystoscopy and left ureteral stent placement. Following the operation, patient required Robert-Synephrine to maintain blood pressure, therefore was transferred to the intensive care unit. All Systems reviewed and pertinent positives and negatives noted in HPI, all other symptoms are negative Gen: in no apparent distress, resting comfortably in bed Eyes: PERRL, no scleral injection or icterus HENT: normocephalic, atraumatic, good hearing acuity, moist mucous membranes Neck: no tracheal deviation, full range of motion Resp: good air exchange, breathing comfortably with no accessory muscle use, no tactile fremitus, clear to auscultation bilaterally CVS: good distal perfusion x 4, no pitting edema, tachycardic without murmurs GI: soft, NTTP, ND, no hepatosplenomegaly : no suprapubic tenderness, left-sided costovertebral angle tenderness, sheikh catheter is present, appears grossly bloody MSK: no clubbing, no cyanosis, no noted contractures of extremities Skin: no noted rashes, petechiae; temperature of skin is appropriate Neuro: moving all extremities without signs of weakness, CN II-XII intact Psych: cooperative, euthymic mood, insight and judgment intact Labs as above Assessment/plan: Severe sepsis with pyelonephritis Nephrolithiasis Acute kidney injury -Patient admitted to the intensive care unit -Continue Robert-Synephrine, patient received 4 L of bolus and was started on 130 mL per hour of normal saline -Ceftriaxone 1 g every 24 hours -Urology consult appreciated -Strict ins and outs -Follow up urine culture -Pain control: [place] when necessary as well as Tylenol when necessary Fibromyalgia Chronic pain with narcotic dependence Seizure disorder Hyperlipidemia -Home medications were reviewed -Continue Keppra, pravastatin, [place] when necessary Patient is full code Past Medical History Past Medical History: Fibromyalgia, Hyperlipidemia, Seizure Disorder History of Any Multi-Drug Resistant Organisms: None Reported Past Surgical History: Hysterectomy, Orthopedic Surgery Past Anesthesia/Blood Transfusion Reactions: No Reported Reaction Past Psychological History: No Psychological Hx Reported Smoking Status: Never smoker Past Alcohol Use History: None Reported Past Drug Use History: None Reported - Past Family History Father Family Medical History: Deep Vein Thrombosis (DVT) Mother Family Medical History: Osteoarthritis (OA) Medications and Allergies Home Medications Medication Instructions Recorded Confirmed Type HYDROcodone/APAP 7.5-325MG [[place] 1 tab PO Q4H PRN 06/27/17 05/12/23 History 7.5-325] Pravastatin Sodium [Pravachol] 20 mg PO DAILY 06/27/17 05/12/23 History Aspirin EC [Ecotrin Low Dose] 81 mg PO DAILY 05/12/23 05/12/23 History Celecoxib [CeleBREX] 200 mg PO BID 05/12/23 05/12/23 History Cephalexin [Keflex] 500 mg PO Q6HR 05/12/23 05/12/23 History Cholecalciferol [Vitamin D3 (125 125 mcg PO DAILY 05/12/23 05/12/23 History Mcg = 5000 Iu)] Fenofibrate,Micronized 200 mg PO DAILY 05/12/23 05/12/23 History [Fenofibrate] Ondansetron Odt [Zofran Odt] 4 mg PO TID PRN 05/12/23 05/12/23 History Pantoprazole [Protonix] 40 mg PO DAILY 05/12/23 05/12/23 History levETIRAcetam [Keppra] 500 mg PO Q12HR 05/12/23 05/12/23 History Allergies Allergy/AdvReac Type Severity Reaction Status Date / Time Sulfa (Sulfonamide Allergy Rash/Hives Verified 05/12/23 11:31 Antibiotics) Physical Exam Osteopathic Statement: *. No significant issues noted on an osteopathic structural exam other than those noted in the History and Physical/Consult. Vitals: Vital Signs Temp Pulse Pulse Resp BP BP BP 05/12/23 17:00 89 28 H 108/57 05/12/23 16:45 93 30 H 106/61 05/12/23 16:30 95 25 H 96/73 05/12/23 16:19 98.5 F 96 24 95/68 05/12/23 15:35 101/59 05/12/23 15:13 95/61 05/12/23 15:00 81/51 05/12/23 14:43 78/50 05/12/23 14:30 89 16 84/51 05/12/23 14:15 88 16 76/47 05/12/23 14:00 89 16 70/49 05/12/23 13:45 93 16 89/52 05/12/23 13:30 91 16 78/46 05/12/23 13:15 91 16 81/46 05/12/23 13:08 98.1 F 92 16 91/46 05/12/23 12:20 89 16 71/44 05/12/23 12:10 91 16 76/48 05/12/23 12:05 86 16 69/40 05/12/23 12:00 84 16 68/45 05/12/23 11:31 82 18 79/48 05/12/23 10:00 86 20 75/42 05/12/23 09:28 84 18 75/46 05/12/23 08:10 82 20 76/44 05/12/23 07:29 97.9 F 80 20 73/47 05/12/23 06:52 84 20 90/51 05/12/23 06:14 84 20 83/48 05/12/23 05:00 87 20 86/59 05/12/23 03:20 99.9 F H 85 18 85/59 05/12/23 02:50 85 20 83/47 05/12/23 02:20 86 20 80/46 05/12/23 01:56 100.7 F H 86 18 80/47 Pulse Ox 05/12/23 17:00 92 L 05/12/23 16:45 93 L 05/12/23 16:30 93 L 05/12/23 16:19 93 L 05/12/23 15:35 05/12/23 15:13 05/12/23 15:00 05/12/23 14:43 05/12/23 14:30 94 L 05/12/23 14:15 94 L 05/12/23 14:00 94 L 05/12/23 13:45 94 L 05/12/23 13:30 94 L 05/12/23 13:15 94 L 05/12/23 13:08 94 L 05/12/23 12:20 95 05/12/23 12:10 95 05/12/23 12:05 95 05/12/23 12:00 95 05/12/23 11:31 94 L 05/12/23 10:00 94 L 05/12/23 09:28 94 L 05/12/23 08:10 94 L 05/12/23 07:29 05/12/23 06:52 95 05/12/23 06:14 96 05/12/23 05:00 96 05/12/23 03:20 95 05/12/23 02:50 95 05/12/23 02:20 95 05/12/23 01:56 93 L Intake and Output 05/12/23 05/12/23 05/12/23 06:59 14:59 22:59 Intake Total 1450 Output Total 1 Balance 1449 Intake: IV 1450 Output: Estimated Blood Loss 1 Other: Weight 74.843 kg 74.843 kg Results CBC & Chem 7: 05/12/23 03:24 05/12/23 03:24 Labs: Abnormal Lab Results - Last 24 Hours (Table) 05/12/23 05/12/23 05/12/23 Range/Units 03:24 03:24 03:24 RBC 3.66 L (3.80-5.40) m/uL Hgb 11.2 L (11.4-16.0) gm/dL Plt Count 49 L (150-450) k/uL Lymphocytes # (Manual) 0.30 L (1.0-4.8) k/uL Potassium 3.4 L (3.5-5.1) mmol/L Chloride 115 H (98-107) mmol/L Carbon Dioxide 14 L (22-30) mmol/L BUN 33 H (7-17) mg/dL Creatinine 1.26 H (0.52-1.04) mg/dL Plasma Lactic Acid Jose 2.2 H* (0.7-2.0) mmol/L Calcium 7.9 L (8.4-10.2) mg/dL Total Bilirubin 1.5 H (0.2-1.3) mg/dL AST 49 H (14-36) U/L Troponin I (0.000-0.034) ng/mL Total Protein 4.9 L (6.3-8.2) g/dL Albumin 2.6 L (3.5-5.0) g/dL 05/12/23 05/12/23 Range/Units 03:24 06:50 RBC (3.80-5.40) m/uL Hgb (11.4-16.0) gm/dL Plt Count (150-450) k/uL Lymphocytes # (Manual) (1.0-4.8) k/uL Potassium (3.5-5.1) mmol/L Chloride (98-107) mmol/L Carbon Dioxide (22-30) mmol/L BUN (7-17) mg/dL Creatinine (0.52-1.04) mg/dL Plasma Lactic Acid Jose 2.5 H* (0.7-2.0) mmol/L Calcium (8.4-10.2) mg/dL Total Bilirubin (0.2-1.3) mg/dL AST (14-36) U/L Troponin I 0.086 H* (0.000-0.034) ng/mL Total Protein (6.3-8.2) g/dL Albumin (3.5-5.0) g/dL
[2023-05-12] MEDS: FENOFIBRATE 54 MG TAB PO SCH (19:29)
[2023-05-12] MEDS: PRAVASTATIN SODIUM 20 MG TAB PO SCH (19:29)
[2023-05-12] MEDS: CHOLECALCIFEROL 125 MCG (5000 IU) TABLET PO SCH (19:29)
[2023-05-12] MEDS: PANTOPRAZOLE 40 MG TABLET PO SCH (19:29)
[2023-05-12] MEDS ORDERED: Potassium Replacement Protocol 1 EACH MISC MISCELLANE PRN (19:31)
[2023-05-12] MEDS: POTASSIUM CHLORIDE ER 20 MEQ TAB.ER PO SCH ×2 (19:43→20:51)
[2023-05-12] MEDS: levETIRAcetam 500 MG TAB PO SCH (20:16)
[2023-05-12] MEDS: LORazepam 1 MG TAB PO PRN (20:54)
[2023-05-13 00:11] LABS: Glucose,Whole Blood 113 mg/dL (70-110)
[2023-05-13] MEDS: HEPARIN SODIUM,PORCINE 5,000 UNIT/ML 1 ML VIAL SQ SCH (00:55)
[2023-05-13] MEDS: PIPERACILLIN-TAZOBACTAM 3.375 GM in SODIUM CHLORIDE 0.9% 100 ML IVPB SCH ×3 (00:55→17:06)
[2023-05-13] MEDS: HYDROcodone/APAP 7.5-325MG 1 EACH TAB PO PRN ×5 (01:59→22:07)
[2023-05-13] MEDS: DEXTROSE 5% IN WATER 1,000 ML with SODIUM BICARB (1 MEQ/ML) 150 ML IV SCH ×2 (05:14→19:39)
[2023-05-13 05:50] LABS: HCT 32.7 % (34.0-46.0); HGB 10.5 gm/dL (11.4-16.0); Hypochromasia Slight; MCH 30.5 pg (25.0-35.0); MCHC 32.2 g/dL (31.0-37.0); MCV 94.8 fL (80.0-100.0); Mean Platelet Volume 9.1; RBC 3.45 m/uL (3.80-5.40)
[2023-05-13 06:01] LABS: African American GFR (CKD) 51 (>60 ml/min/1.73 sqM); Anion Gap 11 mmol/L; Blood Urea Nitrogen 41 mg/dL (7-17); Calcium 6.7 mg/dL (8.4-10.2); Carbon Dioxide 16 mmol/L (22-30); Chloride 116 mmol/L (98-107); Glucose 106 mg/dL (74-99); Non-African American GFR(CKD) 45 (>60 ml/min/1.73 sqM); Potassium 4.3 mmol/L (3.5-5.1); Sodium 143 mmol/L (137-145)
[2023-05-13] MEDS: PHENYLEPHRINE 40 MG in SODIUM CHLORIDE 0.9% 250 ML IV SCH (06:15)
[2023-05-13 06:19] LABS: Platelet Count 41 k/uL (150-450)
--- NOTE | 2023-05-13 08:06 | P.PN ---
Subjective Progress Note Date: 05/13/23 Underwent left-sided stent insertion yesterday of blood cultures growing gram- negative bacilli. Blood pressure is improving this morning Objective - Vital Signs Vital signs: Vital Signs Temp 97.9 F 05/13/23 04:00 Pulse 84 05/13/23 07:00 Resp 26 H 05/13/23 07:00 BP 106/64 05/13/23 07:00 Pulse Ox 94 L 05/13/23 07:00 FiO2 Intake & Output 05/12/23 05/13/23 05/13/23 18:59 06:59 18:59 Intake Total 3033.073 5726.793 Output Total 61 450 Balance 8571.299 3135.793 Weight 74.843 kg 88.4 kg Intake: IV 1550 1400 Dextrose 5% in Water 1, 100 1300 000 ml @ 100 mls/hr IV . [id number] MARISA with Sodium Bicarb (1 Meq/ml) 150 ml Rx#:[id number] Piperacillin-Tazobactam 3 100 .375 gm In Sodium Chloride 0.9% 100 ml @ 25 mls/hr IVPB Q8HR [facility] Rx# :[id number] Intake, IV Titration 129.601 274.793 Amount Phenylephrine 40 mg In 129.601 274.793 Sodium Chloride 0.9% 250 ml @ 0.5 MCG/KG/MIN 14. 258 mls/hr IV .[id number] [facility] Rx#:[id number] Oral 50 Output: Urine 60 450 Estimated Blood Loss 1 Other: Voiding Method Indwelling Catheter - Constitutional General appearance: Present: no acute distress - Gastrointestinal General gastrointestinal: Present: soft. Absent: distended, tenderness - Psychiatric Psychiatric: Present: A&O x's 3 - Labs CBC & Chem 7: 05/13/23 05:16 05/13/23 05:16 Labs: Abnormal Lab Results - Last 24 Hours (Table) 05/13/23 05/13/23 05/13/23 Range/Units 00:09 05:16 05:16 WBC 14.0 H (3.8-10.6) k/uL RBC 3.45 L (3.80-5.40) m/uL Hgb 10.5 L (11.4-16.0) gm/dL Hct 32.7 L (34.0-46.0) % Plt Count 41 L (150-450) k/uL Chloride 116 H (98-107) mmol/L Carbon Dioxide 16 L (22-30) mmol/L BUN 41 H (7-17) mg/dL Creatinine 1.26 H (0.52-1.04) mg/dL Glucose 106 H (74-99) mg/dL POC Glucose (mg/dL) 113 H (70-110) mg/dL Calcium 6.7 L (8.4-10.2) mg/dL Ionized Calcium [place] (4.5-5.3) mg/dL 05/13/23 Range/Units 06:52 WBC (3.8-10.6) k/uL RBC (3.80-5.40) m/uL Hgb (11.4-16.0) gm/dL Hct (34.0-46.0) % Plt Count (150-450) k/uL Chloride (98-107) mmol/L Carbon Dioxide (22-30) mmol/L BUN (7-17) mg/dL Creatinine (0.52-1.04) mg/dL Glucose (74-99) mg/dL POC Glucose (mg/dL) (70-110) mg/dL Calcium (8.4-10.2) mg/dL Ionized Calcium [place] 4.2 L (4.5-5.3) mg/dL Microbiology - Last 24 Hours (Table) 05/12/23 02:55 Blood Culture Gram Stain - Preliminary Blood Assessment and Plan Assessment: 67-year-old female history of a 3 mm left-sided ureteral stone patient is septic secondary to her stone. Underwent left-sided stent insertion yesterday. Patient is in the ICU hemodynamically stable. Blood cultures growing gram- negative bacilli -Keep Levy catheter in place until patient is out of the ICU -Follow up on blood and urine cultures
[2023-05-13] MEDS: LORazepam 1 MG TAB PO PRN (08:07)
--- NOTE | 2023-05-13 09:23 | P.PN ---
Subjective Progress Note Date: 05/13/23 This patient is 67, history of fibromyalgia, history of seizure disorder and hyperlipidemia, presented to us following a left ureteral stent insertion for a left ureteral stone and secondary infection sepsis. The patient became septic from a 3 mm left-sided ureteral stone and she had symptoms of pyelonephritis. Patient was taken to the operating room. The patient underwent cystoscopy with a left stent insertion. The postop, the patient became hypotensive. She was given a total of 3 L of IV fluids with normal saline. Currently she is on Robert- Synephrine at 1.9 mcg/kg/m. Awake and alert and communicating. Her pain along the left flank is subsided. No hematuria. Urine output is improving. UA and urine culture still pending for now. The patient on IV Rocephin 2 g every 24 hours. No altered mentation. No nausea and emesis. No other new complaints otherwise for now. Today's evaluation of 05/13/2023, the patient is being seen for a follow-up. The patient is septic with a gram-negative bacillus or sitting from the urinary tract infection. She is post left ureteral stenting. Urine output is in order of 30-40 mL an hour. The patient is currently on a bicarb infusion. The patie nt is also on Robert-Synephrine and doses were reduced down to 0.3 mcg/kg/m. The patient otherwise is a bit lethargic. She did have some panic attacks yesterday and she was given Ativan. The Dilaudid was +14, 10.5 and a platelet count is down to 41. BUN is 41 with a creatinine of 1.2 and the sodium levels is 143. Blood cultures positive for gram-negative bacillus and the patient is currently on IV Zosyn. Objective - Vital Signs Vital signs: Vital Signs Temp 98.0 F 05/13/23 08:00 Pulse 86 05/13/23 09:00 Resp 26 H 05/13/23 09:00 BP 99/60 05/13/23 09:00 Pulse Ox 94 L 05/13/23 09:00 FiO2 Intake & Output 05/12/23 05/13/23 05/13/23 18:59 06:59 18:59 Intake Total 2591.341 9420.793 493.676 Output Total 61 450 90 Balance 0785.790 9694.793 403.676 Weight 74.843 kg 88.4 kg Intake: IV 1550 1400 300 Dextrose 5% in Water 1, 100 1300 200 000 ml @ 100 mls/hr IV . [id number] [facility] with Sodium Bicarb (1 Meq/ml) 150 ml Rx#:[id number] Piperacillin-Tazobactam 3 100 100 .375 gm In Sodium Chloride 0.9% 100 ml @ 25 mls/hr IVPB Q8HR [facility] Rx# :[id number] Intake, IV Titration 129.601 274.793 43.676 Amount Phenylephrine 40 mg In 129.601 274.793 43.676 Sodium Chloride 0.9% 250 ml @ 0.5 MCG/KG/MIN 14. 258 mls/hr IV .[id number] [facility] Rx#:[id number] Oral 50 150 Output: Urine 60 450 90 Estimated Blood Loss 1 Other: Voiding Method Indwelling Catheter - Exam The patient appeared well nourished and normally developed. Vital signs as documented. Head exam is unremarkable. The patient has an external jugular catheter on the right. No scleral icterus or corneal arcus noted. Neck is without jugular venous distension, thyromegaly, or carotid bruits. Carotid upstrokes are brisk bilaterally. Lungs are clear to auscultation and percussion. Cardiac exam reveals the PMI to be normally sized and situated. Rhythm is regular. First and second heart sounds normal. No murmurs, rubs or gallops. Abdominal exam reveals normal bowel sounds, no masses, no organomegaly and no aortic enlargement. Extremities are nonedematous and both femoral and pedal pulses are normal.Examination of the skin revealed no evidence of significant rashes, suspicious appearing nevi or other concerning lesions.Neurologically, the patient is awake and alert and the patient does not have any focal neurological deficit. Cranial nerves are essentially intact. - Labs CBC & Chem 7: 05/13/23 05:16 05/13/23 05:16 Labs: Abnormal Lab Results - Last 24 Hours (Table) 05/13/23 05/13/23 05/13/23 Range/Units 00:09 05:16 05:16 WBC 14.0 H (3.8-10.6) k/uL RBC 3.45 L (3.80-5.40) m/uL Hgb 10.5 L (11.4-16.0) gm/dL Hct 32.7 L (34.0-46.0) % Plt Count 41 L (150-450) k/uL Chloride 116 H (98-107) mmol/L Carbon Dioxide 16 L (22-30) mmol/L BUN 41 H (7-17) mg/dL Creatinine 1.26 H (0.52-1.04) mg/dL Glucose 106 H (74-99) mg/dL POC Glucose (mg/dL) 113 H (70-110) mg/dL Calcium 6.7 L (8.4-10.2) mg/dL Ionized Calcium Facundo (4.5-5.3) mg/dL 05/13/23 Range/Units 06:52 WBC (3.8-10.6) k/uL RBC (3.80-5.40) m/uL Hgb (11.4-16.0) gm/dL Hct (34.0-46.0) % Plt Count (150-450) k/uL Chloride (98-107) mmol/L Carbon Dioxide (22-30) mmol/L BUN (7-17) mg/dL Creatinine (0.52-1.04) mg/dL Glucose (74-99) mg/dL POC Glucose (mg/dL) (70-110) mg/dL Calcium (8.4-10.2) mg/dL Ionized Calcium [place] 4.2 L (4.5-5.3) mg/dL Microbiology - Last 24 Hours (Table) 05/12/23 02:55 Blood Culture Gram Stain - Preliminary Blood Blood Culture - Preliminary Gram Neg Bacilli Assessment and Plan Plan: Septic shock, currently on IV fluids and pressors and antibiotics. Source being urinary. The urine culture still pending. Blood cultures positive for gram- negative bacillus and the patient is currently on IV Zosyn Left ureteral stone with a complicated urinary tract infection/pyonephritis and the patient is post cystoscopy and insertion of a left ureteral stent Acute hypoxic respiratory failure secondary to above currently on 4 L of O2 nasal cannula Lactic acidosis, improving Non-anion gap metabolic acidosis, improving Fibromyalgia Hyperlipidemia History of seizure activity Thrombocytopenia, likely consumptive, rule out DIC. Plan Stop subcu heparin Check a coagulation profile including PT/PTT INR and fibrinogen Continue the bicarb infusion bicarb infusion with a total of 150 mEq of sodium bicarbonate at the rate of 100 mL an hour Continue Robert-Synephrine infusion is being gradually weaned off Titrate Robert-Synephrine to maintain immunosuppression was 60 Replace potassium Urine and blood cultures are positive for gram-negative bacillus Monitor urine output Resume Joey Resume all medications We'll continue to follow
--- NOTE | 2023-05-13 10:16 | P.PN ---
Subjective Progress Note Date: 05/13/23 Pt c/o diffuse pain related to her fibromyalgia. BCx returned positive for GN Bacilli - speciation pending. Robert-synephrine still running at 0.5 Gen: in no apparent distress, resting comfortably in bed Eyes: PERRL, no scleral injection or icterus HENT: normocephalic, atraumatic, good hearing acuity, moist mucous membranes Neck: no tracheal deviation, full range of motion Resp: good air exchange, breathing comfortably with no accessory muscle use, no tactile fremitus, clear to auscultation bilaterally CVS: good distal perfusion x 4, no pitting edema, tachycardic without murmurs GI: soft, NTTP, ND, no hepatosplenomegaly : no suprapubic tenderness, left-sided costovertebral angle tenderness, sheikh catheter is present MSK: no clubbing, no cyanosis, no noted contractures of extremities Skin: no noted rashes, petechiae; temperature of skin is appropriate Neuro: moving all extremities without signs of weakness, CN II-XII intact Psych: cooperative, euthymic mood, insight and judgment intact Hospital Course: 67 year old woman with history of fibromyalgia and chronic pain with narcotic dependence, seizure disorder, HLD who presented for flank pain, fevers, chills. Upon evaluation, patient was afebrile, 95/68, heart rate 96, 93% on 4 L nasal cannula. CBC demonstrated hemoglobin of 11.2 with no white blood cell count elevation, platelets of 49. Basic metabolic panel showed potassium of 3.4, chloride of 115, CO2 14, no anion gap, BUN of 33, creatinine 1.26. Calcium was 7.9. Liver function tests showed elevated total bilirubin at 1.5, AST 49, ALT of 22, albumin of 2.6. Lipase was 106, amylase was 39. Lactic acid is 1.3. Troponins 0.086. Covid was negative. Patient was taken to the operating room where she underwent cystoscopy and left ureteral stent placement. Following the operation, patient required Robert-Synephrine to maintain blood pressure, therefore was transferred to the intensive care unit. All Systems reviewed and pertinent positives and negatives noted in HPI, all other symptoms are negative Labs as above Assessment/plan: Severe sepsis with pyelonephritis Nephrolithiasis Acute kidney injury -Patient admitted to the intensive care unit -Continue Robert-Synephrine, patient received 4 L of bolus and was started on 130 mL per hour of normal saline -Ceftriaxone 1 g every 24 hours switched to zosyn 3.375gm q8h -Urology consult appreciated -Strict ins and outs -Follow up urine culture -Pain control: [place] when necessary as well as Tylenol when necessary Thrombocytopenia - medication induced versus sepsis related - if no improvement with control of infection, consideration of hematology consult - coags ordered, fibrinogen ordered, d-dimer ordered Fibromyalgia Chronic pain with narcotic dependence Seizure disorder Hyperlipidemia -Home medications were reviewed -Continue Keppra, pravastatin, [place] when necessary Patient is full code Objective - Vital Signs Vital signs: Vital Signs Temp 98.0 F 05/13/23 08:00 Pulse 86 05/13/23 09:00 Resp 26 H 05/13/23 09:00 BP 99/60 05/13/23 09:00 Pulse Ox 94 L 05/13/23 09:00 FiO2 Intake & Output 05/12/23 05/13/23 05/13/23 18:59 06:59 18:59 Intake Total 5060.986 4562.793 493.676 Output Total 61 450 90 Balance 1946.597 9800.793 403.676 Weight 74.843 kg 88.4 kg Intake: IV 1550 1400 300 Dextrose 5% in Water 1, 100 1300 200 000 ml @ 100 mls/hr IV . [id number] [facility] with Sodium Bicarb (1 Meq/ml) 150 ml Rx#:[id number] Piperacillin-Tazobactam 3 100 100 .375 gm In Sodium Chloride 0.9% 100 ml @ 25 mls/hr IVPB Q8HR [facility] Rx# :[id number] Intake, IV Titration 129.601 274.793 43.676 Amount Phenylephrine 40 mg In 129.601 274.793 43.676 Sodium Chloride 0.9% 250 ml @ 0.5 MCG/KG/MIN 14. 258 mls/hr IV .[id number] [facility] Rx#:[id number] Oral 50 150 Output: Urine 60 450 90 Estimated Blood Loss 1 Other: Voiding Method Indwelling Catheter - Labs CBC & Chem 7: 05/13/23 05:16 05/13/23 05:16 Labs: Abnormal Lab Results - Last 24 Hours (Table) 05/13/23 05/13/23 05/13/23 Range/Units 00:09 05:16 05:16 WBC 14.0 H (3.8-10.6) k/uL RBC 3.45 L (3.80-5.40) m/uL Hgb 10.5 L (11.4-16.0) gm/dL Hct 32.7 L (34.0-46.0) % Plt Count 41 L (150-450) k/uL Chloride 116 H (98-107) mmol/L Carbon Dioxide 16 L (22-30) mmol/L BUN 41 H (7-17) mg/dL Creatinine 1.26 H (0.52-1.04) mg/dL Glucose 106 H (74-99) mg/dL POC Glucose (mg/dL) 113 H (70-110) mg/dL Calcium 6.7 L (8.4-10.2) mg/dL Ionized Calcium Facundo (4.5-5.3) mg/dL 05/13/23 Range/Units 06:52 WBC (3.8-10.6) k/uL RBC (3.80-5.40) m/uL Hgb (11.4-16.0) gm/dL Hct (34.0-46.0) % Plt Count (150-450) k/uL Chloride (98-107) mmol/L Carbon Dioxide (22-30) mmol/L BUN (7-17) mg/dL Creatinine (0.52-1.04) mg/dL Glucose (74-99) mg/dL POC Glucose (mg/dL) (70-110) mg/dL Calcium (8.4-10.2) mg/dL Ionized Calcium [place] 4.2 L (4.5-5.3) mg/dL Microbiology - Last 24 Hours (Table) 05/12/23 02:55 Blood Culture Gram Stain - Preliminary Blood Blood Culture - Preliminary Gram Neg Bacilli
[2023-05-13] MEDS: CHOLECALCIFEROL 125 MCG (5000 IU) TABLET PO SCH (10:17)
[2023-05-13] MEDS: PANTOPRAZOLE 40 MG TABLET PO SCH (10:17)
[2023-05-13] MEDS: FENOFIBRATE 54 MG TAB PO SCH (10:18)
[2023-05-13] MEDS: levETIRAcetam 500 MG TAB PO SCH ×2 (10:18→20:35)
[2023-05-13] MEDS: PRAVASTATIN SODIUM 20 MG TAB PO SCH (10:18)
[2023-05-13] MEDS ORDERED: CALCIUM GLUCONATE IN NACL 2 GM in SALINE 1 100ML.BAG IVPB ONE (10:23)
[2023-05-13 11:14] LABS: Fibrinogen 531 mg/dL (200-500); INR 1.5 (<1.2); Partial Thromboplastin Time 27.8 sec (22.0-30.0); Prothrombin Time 15.7 sec (10.0-12.5)
[2023-05-14] MEDS: PIPERACILLIN-TAZOBACTAM 3.375 GM in SODIUM CHLORIDE 0.9% 100 ML IVPB SCH ×3 (01:00→15:35)
[2023-05-14] MEDS: HYDROcodone/APAP 7.5-325MG 1 EACH TAB PO PRN ×5 (02:53→21:53)
[2023-05-14 04:51] LABS: HCT 31.2 % (34.0-46.0); HGB 10.4 gm/dL (11.4-16.0); MCH 30.7 pg (25.0-35.0); MCHC 33.2 g/dL (31.0-37.0); MCV 92.3 fL (80.0-100.0); Mean Platelet Volume 10.2; RBC 3.39 m/uL (3.80-5.40); RDW 14.3 % (11.5-15.5); WBC 14.2 k/uL (3.8-10.6)
[2023-05-14 05:06] LABS: Platelet Count 46 k/uL (150-450)
[2023-05-14 05:11] LABS: Sodium 142 mmol/L (137-145)
[2023-05-14 05:12] LABS: African American GFR (CKD) 82 (>60 ml/min/1.73 sqM); Anion Gap 8 mmol/L; Blood Urea Nitrogen 37 mg/dL (7-17); Calcium 7.6 mg/dL (8.4-10.2); Carbon Dioxide 24 mmol/L (22-30); Chloride 110 mmol/L (98-107); Glucose 102 mg/dL (74-99); Non-African American GFR(CKD) 71 (>60 ml/min/1.73 sqM); Potassium 3.4 mmol/L (3.5-5.1)
[2023-05-14] MEDS: POTASSIUM CHLORIDE ER 20 MEQ TAB.ER PO SCH ×2 (06:15→06:58)
[2023-05-14] MEDS: DEXTROSE 5% IN WATER 1,000 ML with SODIUM BICARB (1 MEQ/ML) 150 ML IV SCH (06:58)
[2023-05-14] MEDS: levETIRAcetam 500 MG TAB PO SCH ×2 (08:23→20:06)
[2023-05-14] MEDS: PRAVASTATIN SODIUM 20 MG TAB PO SCH (08:23)
[2023-05-14] MEDS: PANTOPRAZOLE 40 MG TABLET PO SCH (08:23)
[2023-05-14] MEDS: CHOLECALCIFEROL 125 MCG (5000 IU) TABLET PO SCH (08:23)
[2023-05-14] MEDS: FENOFIBRATE 54 MG TAB PO SCH (08:23)
[2023-05-14] MEDS: ONDANSETRON 4 MG/2 ML VIAL IVP PRN (08:27)
[2023-05-14] MEDS: SODIUM CHLORIDE 0.9% 1,000 ML IV SCH ×2 (09:30→18:54)
--- NOTE | 2023-05-14 10:14 | P.PN ---
Subjective Progress Note Date: 05/14/23 Underwent left-sided stent insertion 05/12 of blood cultures growing gram- negative bacilli. Denies any flank pain Objective - Vital Signs Vital signs: Vital Signs Temp 97.6 F 05/14/23 08:00 Pulse 75 05/14/23 09:00 Resp 17 05/14/23 09:00 BP 125/67 05/14/23 09:00 Pulse Ox 94 L 05/14/23 09:00 FiO2 Intake & Output 05/13/23 05/14/23 05/14/23 18:59 06:59 18:59 Intake Total 5745.164 0379 400 Output Total 460 775 200 Balance 1149.646 825 200 Weight 84.5 kg Intake: IV 1100 1200 300 Dextrose 5% in Water 1, 1000 1200 200 000 ml @ 100 mls/hr IV . [id number] [facility] with Sodium Bicarb (1 Meq/ml) 150 ml Rx#:[id number] Piperacillin-Tazobactam 3 100 100 .375 gm In Sodium Chloride 0.9% 100 ml @ 25 mls/hr IVPB Q8HR [facility] Rx# :[id number] Intake, IV Titration 59.646 Amount Phenylephrine 40 mg In 59.646 Sodium Chloride 0.9% 250 ml @ 0.5 MCG/KG/MIN 14. 258 mls/hr IV .[id number] [facility] Rx#:[id number] Oral 450 400 100 Output: Urine 460 775 200 Other: Voiding Method Indwelling Catheter Indwelling Catheter - Constitutional General appearance: Present: no acute distress - Psychiatric Psychiatric: Present: A&O x's 3 - Labs CBC & Chem 7: 05/14/23 04:01 05/14/23 04:01 Labs: Abnormal Lab Results - Last 24 Hours (Table) 05/13/23 05/14/23 05/14/23 Range/Units 10:35 04:01 04:01 WBC 14.2 H (3.8-10.6) k/uL RBC 3.39 L (3.80-5.40) m/uL Hgb 10.4 L (11.4-16.0) gm/dL Hct 31.2 L (34.0-46.0) % Plt Count 46 L (150-450) k/uL PT 15.7 H (10.0-12.5) sec INR 1.5 H (<1.2) Fibrinogen 531 H (200-500) mg/dL D-Dimer >34.00 H (<0.60) mg/L FEU Potassium 3.4 L (3.5-5.1) mmol/L Chloride 110 H (98-107) mmol/L BUN 37 H (7-17) mg/dL Glucose 102 H (74-99) mg/dL Calcium 7.6 L (8.4-10.2) mg/dL Microbiology - Last 24 Hours (Table) 05/12/23 02:55 Blood Culture Gram Stain - Preliminary Blood Blood Culture - Preliminary Gram Neg Bacilli Assessment and Plan Assessment: 67-year-old female history of a 3 mm left-sided ureteral stone patient was septic secondary to her stone. Underwent left-sided stent insertion yesterday. Patient is in the ICU hemodynamically stable. Blood cultures growing gram- negative bacilli -Keep Levy catheter in place until patient is out of the ICU -Follow up on blood and urine cultures -From Urology standpoint she is ok to transfer out of the ICU
--- NOTE | 2023-05-14 12:14 | P.PN ---
Subjective Progress Note Date: 05/14/23 67 year old F with PMH of fibromyalgia and chronic pain with narcotic dependence, seizure disorder, HLD who presented to the ED for flank pain, fevers, chills. Severe sharp back/flank on the left side which did not improve with medication. Afebrile, BP 95/68, HR 96, 93% on 4 L nasal cannula. CBC Hg 11.2, Plt 49. BMP K 3.4, Cl 115, CO2 14, BUN of 33, Cr 1.26, albumin 2.6. Ca 7.9. LFT Total bilirubin 1.5, AST 49, ALT of 22. Lipase was 106, amylase was 39. Lactic acid is 1.3. Troponins 0.086. COVID negative. Patient was taken to the operating room where she underwent cystoscopy and left ureteral stent placement. Post operatively, patient required phenylephrine to maintain MAP > 65, therefore was transferred to ICU. Initially started on Rocephin, switched to Zosyn on 05/13. Blood cultures are positive for GNB. 05/14 Patient was seen and examined in the ICU. Sleeping but easily arousable. Answers questions appropriately then goes back to sleep. CBC WBC 14.2 Hg 10.4 Plt 46. BMP K 3.4, Cl 110, BUN 37, glu 102, Ca 7.6. D-Dimer > 34. INR 1.5. PT 15.7. BCx GNB. Antibiotics include Zosyn. Currently on D5W with sodium bicarb running at 100 cc/hr. Weaned off Phenylephrine for the time being. General: non toxic, no distress, appears at stated age Derm: warm, dry Head: atraumatic, normocephalic, symmetric Eyes: EOMI, no lid lag, anicteric sclera Cardiovascular: S1S2 reg, no murmur Lungs: Clear to auscultation bilaterally , no accessory muscle use Ext: no gross muscle atrophy, no edema, no contractures Neuro: no focal neuro deficits Psych: Alert, oriented, sleepy L CVA tenderness Based on my assessment of this patient, this patient meets a high complexity level of care. Patient has an acute diagnosis of sepsis due to pyelonephritis that poses a threat to life or bodily function. Severe sepsis with pyelonephritis and gram negative bacteremia: Zosyn 3.375 g IV TID (D2). Repeat BCx. IV hydration as above. Telemetry monitoring. Maintain MAP > 65. Nephrolithiasis: Status post cystoscopy and left ureteral stent placement. Urology on board. Hypokalemia: Replace via protocol. Acute kidney injury: Resolving. IV hydration as above. Thrombocytopenia: Possibly reactive. In the setting of elevated D-Dimer, prolonged PT and PTT, there are concerns for DIC. Consult Hematology. Elevated D-Dimer Fibromyalgia Chronic pain with narcotic dependence: [place] 7.5 Q4 PRN for severe pain. Seizure disorder: Keppra 500 mg PO BID. Hyperlipidemia: Pravachol 20 mg PO QD. CODE STATUS: FULL CODE DVT Prophylaxis: SCD GI Prophylaxis: Protonix PO Designated medical POA if patient is not able to make medical decisions for themselves: I have reviewed the following telecommunications consultant notes: Urology, Pulmonology note. I have reviewed the results of the following tests: CBC. BMP. BCx. I have ordered the following tests: Repeat BCx. I have discussed the care of this patient with the following independent historian: I have independently interpreted the following test below: I have discussed the management of this patient with the following physician: Objective - Vital Signs Vital signs: Vital Signs Temp 98.5 F 05/14/23 04:00 Pulse 81 05/14/23 07:00 Resp 22 05/14/23 07:00 BP 117/73 05/14/23 07:00 Pulse Ox 95 05/14/23 07:00 FiO2 Intake & Output 05/13/23 05/14/23 05/14/23 18:59 06:59 18:59 Intake Total 2748.784 6988 Output Total 460 775 Balance 1149.646 825 Weight 84.5 kg Intake: IV 1100 1200 Dextrose 5% in Water 1, 1000 1200 000 ml @ 100 mls/hr IV . [id number] [facility] with Sodium Bicarb (1 Meq/ml) 150 ml Rx#:[id number] Piperacillin-Tazobactam 3 100 .375 gm In Sodium Chloride 0.9% 100 ml @ 25 mls/hr IVPB Q8HR [facility] Rx# :[id number] Intake, IV Titration 59.646 Amount Phenylephrine 40 mg In 59.646 Sodium Chloride 0.9% 250 ml @ 0.5 MCG/KG/MIN 14. 258 mls/hr IV .[id number] [facility] Rx#:[id number] Oral 450 400 Output: Urine 460 775 Other: Voiding Method Indwelling Catheter Indwelling Catheter - Labs CBC & Chem 7: 05/14/23 04:01 05/14/23 04:01 Labs: Abnormal Lab Results - Last 24 Hours (Table) 05/13/23 05/14/23 05/14/23 Range/Units 10:35 04:01 04:01 WBC 14.2 H (3.8-10.6) k/uL RBC 3.39 L (3.80-5.40) m/uL Hgb 10.4 L (11.4-16.0) gm/dL Hct 31.2 L (34.0-46.0) % Plt Count 46 L (150-450) k/uL PT 15.7 H (10.0-12.5) sec INR 1.5 H (<1.2) Fibrinogen 531 H (200-500) mg/dL D-Dimer >34.00 H (<0.60) mg/L FEU Potassium 3.4 L (3.5-5.1) mmol/L Chloride 110 H (98-107) mmol/L BUN 37 H (7-17) mg/dL Glucose 102 H (74-99) mg/dL Calcium 7.6 L (8.4-10.2) mg/dL Microbiology - Last 24 Hours (Table) 05/12/23 02:55 Blood Culture Gram Stain - Preliminary Blood Blood Culture - Preliminary Gram Neg Bacilli
--- NOTE | 2023-05-14 14:33 | P.PN ---
Subjective Progress Note Date: 05/14/23 Principal diagnosis: Septic shock, urosepsis This patient is 67, history of fibromyalgia, history of seizure disorder and hyperlipidemia, presented to us following a left ureteral stent insertion for a left ureteral stone and secondary infection sepsis. The patient became septic from a 3 mm left-sided ureteral stone and she had symptoms of pyelonephritis. Patient was taken to the operating room. The patient underwent cystoscopy with a left stent insertion. The postop, the patient became hypotensive. She was given a total of 3 L of IV fluids with normal saline. Currently she is on Robert- Synephrine at 1.9 mcg/kg/m. Awake and alert and communicating. Her pain along the left flank is subsided. No hematuria. Urine output is improving. UA and urine culture still pending for now. The patient on IV Rocephin 2 g every 24 hours. No altered mentation. No nausea and emesis. No other new complaints otherwise for now. Today's evaluation of 05/13/2023, the patient is being seen for a follow-up. The patient is septic with a gram-negative bacillus or sitting from the urinary tract infection. She is post left ureteral stenting. Urine output is in order of 30-40 mL an hour. The patient is currently on a bicarb infusion. The patient is also on Robert-Synephrine and doses were reduced down to 0.3 mcg/kg/m. The patient otherwise is a bit lethargic. She did have some panic attacks yesterday and she was given Ativan. The Dilaudid was +14, 10.5 and a platelet count is down to 41. BUN is 41 with a creatinine of 1.2 and the sodium levels is 143. Blood cultures positive for gram-negative bacillus and the patient is currently on IV Zosyn. Reevaluated today on 05/14/20, patient remains in the ICU, on 4 L nasal cannula, patient has been off norepinephrine since midnight, still receiving bicarb drip, serum receiving antibiotics, blood cultures are positive for gram-negative bacilli, patient is being also evaluated by hematology for possible DIC. Libby t is status post stent placement by urology. Patient has mostly intermittent episodes of nausea, no pain, no shortness of breath. WBC count today is 14.2 hemoglobin is 10.4. Basic metabolic profile is normal except for low potassium of 3.4. Patient does have elevated d-dimer, slightly elevated fibrinogen, and elevated INR. Patient's initial presentation was a presentation of sepsis, septic shock, pyelonephritis, gram-negative bacteremia, remains on Zosyn, final cultures are pending. Objective - Vital Signs Vital signs: Vital Signs Temp 96.7 F L 05/14/23 12:00 Pulse 73 05/14/23 13:00 Resp 16 05/14/23 13:00 BP 130/76 05/14/23 13:00 Pulse Ox 95 05/14/23 13:00 FiO2 Intake & Output 05/13/23 05/14/23 05/14/23 18:59 06:59 18:59 Intake Total 2704.531 0387 900 Output Total 460 775 600 Balance 1149.646 825 300 Weight 84.5 kg Intake: IV 1100 1200 700 Dextrose 5% in Water 1, 1000 1200 200 000 ml @ 100 mls/hr IV . [id number] [facility] with Sodium Bicarb (1 Meq/ml) 150 ml Rx#:[id number] Piperacillin-Tazobactam 3 100 100 .375 gm In Sodium Chloride 0.9% 100 ml @ 25 mls/hr IVPB Q8HR [facility] Rx# :[id number] Sodium Chloride 0.9% 1, 400 000 ml @ 100 mls/hr IV . Q10H [facility] Rx#:[id number] Intake, IV Titration 59.646 Amount Phenylephrine 40 mg In 59.646 Sodium Chloride 0.9% 250 ml @ 0.5 MCG/KG/MIN 14. 258 mls/hr IV .[id number] [facility] Rx#:[id number] Oral 450 400 200 Output: Urine 460 775 600 Other: Voiding Method Indwelling Catheter Indwelling Catheter Indwelling Catheter - Exam Physical Exam: Revealed a 67-year-old female in no distress Head: Atraumatic, normocephalic. HEENT:[Neck is supple.] [No neck masses.] [No thyromegaly.] [No JVD.] Chest: [Clear throughout, no crackles, no rhonchi, no wheezes.] Cardiac Exam: [Normal S1 and S2, no S3 gallop, no murmur.] Abdomen: [Soft, nontender, no megaly, no rebound, no guarding, normal bowel sounds.] Extremities: [No clubbing, no edema, no cyanosis.] Neurological Exam: [No focal neurologic deficit.] Psychiatric: Normal mood, affect and normal mental status examination. Skin: No rashes. - Labs CBC & Chem 7: 05/14/23 04:01 05/14/23 04:01 Labs: Abnormal Lab Results - Last 24 Hours (Table) 05/14/23 05/14/23 Range/Units 04:01 04:01 WBC 14.2 H (3.8-10.6) k/uL RBC 3.39 L (3.80-5.40) m/uL Hgb 10.4 L (11.4-16.0) gm/dL Hct 31.2 L (34.0-46.0) % Plt Count 46 L (150-450) k/uL Potassium 3.4 L (3.5-5.1) mmol/L Chloride 110 H (98-107) mmol/L BUN 37 H (7-17) mg/dL Glucose 102 H (74-99) mg/dL Calcium 7.6 L (8.4-10.2) mg/dL Microbiology - Last 24 Hours (Table) 05/12/23 02:55 Blood Culture Gram Stain - Final Blood Blood Culture - Final Escherichia coli Assessment and Plan Assessment: Impression: Septic shock secondary to pyelonephritis and gram-negative bacteremia Left ureteral stone with complicated urinary tract infection/pyelonephritis status post cystoscopy and insertion of left ureteral stent Acute hypoxic respiratory failure secondary to above, improving Acute lactic acidosis, resolved History of fibromyalgia History of seizures Acute thrombocytopenia, rule out consumptive or DIC related. Recommendation: No more heparin considering the low platelets Discontinue bicarb infusion Patient is off pressors since midnight last night Continue to monitor electrolytes Continue Keppra for seizure disorder Continue IV fluids Continue antibiotics as lotion and addressed accordingly once the final cultures available. Continue GI and DVT prophylaxis We will continue to follow Time with Patient: Less than 30
[2023-05-14] MEDS: LORazepam 0.5 MG TAB PO PRN ×2 (14:51→21:53)
[2023-05-14 16:26] LABS: Potassium 4.2 mmol/L (3.5-5.1)
--- NOTE | 2023-05-14 21:39 | P.CONS ---
History of Present Illness - Reason for Consult Consult date: 05/14/23 thrombocytopenia, elevated D-dimer Requesting physician: Christin Sullivan - Chief Complaint Ureteral stone, sepsis - History of Present Illness Ms. Courtney is a 67 yo female who we have been asked to see regarding thrombocytopenia. She is a transfer from [place] for sepsis 07/06 to a ureteral stone. She presented with c/o left abdominal pain, fever, nausea and vomiting. CT at [place] which showed evidence of a 3 mm left-sided ureteral stone. She was seen here by Urology, had cystoscopy with placement of lt ureteral stent and report states purluent drainage came from kidney. Pt says she feels terrible but is better then she was when she came to hospital. Denies any history of low blood counts, denies ETOH, liver disease. Her blood culture are + for gram neg bacili, she is on zosyn. Hgb 10.4, plt 46,000, WBC 14.2, renal function improved from admit BUN/Cr 37/0.86. DIC work up negative. Review of Systems 10 point ROS is neg except as stated in HPI Past Medical History Past Medical History: Fibromyalgia, Hyperlipidemia, Seizure Disorder History of Any Multi-Drug Resistant Organisms: None Reported Past Surgical History: Hysterectomy, Orthopedic Surgery Past Anesthesia/Blood Transfusion Reactions: No Reported Reaction Past Psychological History: No Psychological Hx Reported Smoking Status: Never smoker Past Alcohol Use History: None Reported Past Drug Use History: None Reported - Past Family History Father Family Medical History: Deep Vein Thrombosis (DVT) Mother Family Medical History: Osteoarthritis (OA) Medications and Allergies Home Medications Medication Instructions Recorded Confirmed Type HYDROcodone/APAP 7.5-325MG [[place] 1 tab PO Q4H PRN 06/27/17 05/12/23 History 7.5-325] Pravastatin Sodium [Pravachol] 20 mg PO DAILY 06/27/17 05/12/23 History Aspirin EC [Ecotrin Low Dose] 81 mg PO DAILY 05/12/23 05/12/23 History Celecoxib [CeleBREX] 200 mg PO BID 05/12/23 05/12/23 History Cephalexin [Keflex] 500 mg PO Q6HR 05/12/23 05/12/23 History Cholecalciferol [Vitamin D3 (125 125 mcg PO DAILY 05/12/23 05/12/23 History Mcg = 5000 Iu)] Fenofibrate,Micronized 200 mg PO DAILY 05/12/23 05/12/23 History [Fenofibrate] Ondansetron Odt [Zofran Odt] 4 mg PO TID PRN 05/12/23 05/12/23 History Pantoprazole [Protonix] 40 mg PO DAILY 05/12/23 05/12/23 History levETIRAcetam [Keppra] 500 mg PO Q12HR 05/12/23 05/12/23 History Allergies Allergy/AdvReac Type Severity Reaction Status Date / Time Sulfa (Sulfonamide Allergy Rash/Hives Verified 05/12/23 11:31 Antibiotics) Physical Exam Vitals: Vital Signs Temp Pulse Resp BP Pulse Ox 05/14/23 12:00 96.7 F L 76 18 126/77 94 L 05/14/23 11:00 78 19 122/70 94 L 05/14/23 10:00 73 15 104/61 94 L 05/14/23 09:00 75 17 125/67 94 L 05/14/23 08:00 97.6 F 78 19 119/74 95 05/14/23 07:00 81 22 117/73 95 05/14/23 06:00 78 17 115/64 95 05/14/23 05:00 77 15 113/64 93 L 05/14/23 04:00 98.5 F 80 17 121/67 94 L 05/14/23 03:00 81 21 116/67 94 L 05/14/23 02:00 84 15 114/67 94 L 05/14/23 01:00 85 16 113/69 94 L 05/14/23 00:00 98.3 F 82 13 122/71 94 L 05/13/23 23:08 88 20 122/71 95 05/13/23 23:00 84 21 112/62 94 L 05/13/23 22:00 84 18 128/69 96 05/13/23 21:30 96 19 120/70 92 L 05/13/23 21:00 91 23 114/64 94 L 05/13/23 20:30 90 20 117/65 94 L 05/13/23 20:00 98.1 F 88 19 109/64 95 05/13/23 19:30 82 12 113/72 95 05/13/23 19:00 87 18 111/64 97 05/13/23 18:00 94 22 113/59 93 L 05/13/23 17:00 95 26 H 109/64 94 L 05/13/23 16:30 85 16 97/56 95 05/13/23 16:00 89 20 99/58 95 05/13/23 15:30 90 21 111/65 93 L 05/13/23 15:00 87 19 109/67 94 L 05/13/23 14:30 86 21 115/64 93 L 05/13/23 14:00 90 25 H 103/58 92 L 05/13/23 13:30 87 20 98/61 95 05/13/23 13:00 92 12 102/62 92 L Intake and Output 05/13/23 05/14/23 05/14/23 22:59 06:59 14:59 Intake Total 1000 900 800 Output Total 340 585 500 Balance 660 315 300 Intake: IV 600 900 600 Dextrose 5% in Water 1, 600 900 200 000 ml @ 100 mls/hr IV . [id number] MARISA with Sodium Bicarb (1 Meq/ml) 150 ml Rx#:[id number] Piperacillin-Tazobactam 3 100 .375 gm In Sodium Chloride 0.9% 100 ml @ 25 mls/hr IVPB Q8HR MARISA Rx# :[id number] Sodium Chloride 0.9% 1, 300 000 ml @ 100 mls/hr IV . Q10H MARISA Rx#:[id number] Oral 400 200 Output: Urine 340 585 500 Other: Voiding Method Indwelling Catheter Indwelling Catheter Indwelling Catheter Weight 84.5 kg - Constitutional General appearance: average body habitus, cooperative, no acute distress - EENT dry mucus membranes Eyes: anicteric sclerae, EOMI ENT: hearing grossly normal - Respiratory Respiratory: bilateral: CTA - Cardiovascular Rhythm: regular Abnormal Heart Sounds: no systolic murmur, no diastolic murmur, no rub, no S3 Gallop, no S4 Gallop, no click, no other leg Peripheral Edema: bilateral: None - Gastrointestinal epigastric fullness, generalized abd tenderness - Integumentary no hematomas or petechia on arms or legs Integumentary: normal - Neurologic Neurologic: CNII-XII intact (grossly) - Musculoskeletal Musculoskeletal: generalized weakness - Psychiatric irritable 2/2 to not feeling well Psychiatric: A&O x's 3, appropriate affect, intact judgment & insight Results CBC & Chem 7: 05/14/23 04:01 05/14/23 15:39 Labs: Abnormal Lab Results - Last 24 Hours (Table) 05/14/23 05/14/23 Range/Units 04:01 04:01 WBC 14.2 H (3.8-10.6) k/uL RBC 3.39 L (3.80-5.40) m/uL Hgb 10.4 L (11.4-16.0) gm/dL Hct 31.2 L (34.0-46.0) % Plt Count 46 L (150-450) k/uL Potassium 3.4 L (3.5-5.1) mmol/L Chloride 110 H (98-107) mmol/L BUN 37 H (7-17) mg/dL Glucose 102 H (74-99) mg/dL Calcium 7.6 L (8.4-10.2) mg/dL Microbiology - Last 24 Hours (Table) 05/12/23 02:55 Blood Culture Gram Stain - Final Blood Blood Culture - Final Escherichia coli Assessment and Plan (1) Thrombocytopenia Current Visit: Yes Status: Acute Priority: High Code(s): D69.6 - THROMBOCYTOPENIA, UNSPECIFIED SNOMED Code(s): 056898815 (2) Anemia Current Visit: Yes Status: Acute Priority: High Code(s): D64.9 - ANEMIA, UNSPECIFIED SNOMED Code(s): 712045260 Plan: Anemia and thrombocytopenia -New onset, this admit. Chart review show normal Hgb and plt counts in this medical record (most recent 09/23). -Pt admitted with sepsis, blood cultures positive for gram neg bacili -DIC work up neg -Anticoagulation/DVT prophylaxis has not been given this admit so, no need for HIT ab testing -SCDs for DVT prophylaxis until plt at or above 50,000 -Anemia, thrombocytopenia work up ordered -Transfuse for a Hgb< 7 or plt <10,000 unless symptomatic -After chart review and discussion with pt felt most likely that significant change in counts is 2/2 sepsis but, above ordered work up is absolutely reasonable Attests: I have seen and examined pt, performed H&P, developed impression and plan of care. Discussed with dictator. Agree with documentation, dictated as a scribe.
[2023-05-14] MEDS ORDERED: IPRATROPIUM-ALBUTEROL 3 ML NEB INHALATION PRN (22:45)
[2023-05-15 00:35] LABS: Hepatitis A Antibody IgM Nonreactive; Hepatitis B Core IgM Nonreactive; Hepatitis B Surface Antigen Nonreactive; Hepatitis C IgG Antibody Nonreactive
[2023-05-15 00:53] LABS: HIV 2 AB Non-Reactive (Non-Reactive); HIV AB P24 Non-Reactive (Non-Reactive); HIV P24 AG Non-Reactive (Non-Reactive)
[2023-05-15] MEDS: PIPERACILLIN-TAZOBACTAM 3.375 GM in SODIUM CHLORIDE 0.9% 100 ML IVPB SCH ×2 (00:56→07:36)
[2023-05-15] MEDS: HYDROcodone/APAP 7.5-325MG 1 EACH TAB PO PRN ×3 (02:37→11:09)
[2023-05-15 03:41] LABS: % Iron Saturation 3.63 (12.00-45.00); Iron 9 UG/DL (50-170); Total Iron Binding Capacity 248 UG/DL (228-460)
[2023-05-15 03:57] LABS: Vitamin B12 >3600.0 pg/mL (200.0-944.0)
[2023-05-15 04:48] LABS: HCT 32.4 % (34.0-46.0); HGB 10.6 gm/dL (11.4-16.0); Hypochromasia Slight; MCH 30.6 pg (25.0-35.0); MCHC 32.8 g/dL (31.0-37.0); MCV 93.5 fL (80.0-100.0); RBC 3.47 m/uL (3.80-5.40); RDW 14.4 % (11.5-15.5); WBC 12.6 k/uL (3.8-10.6)
[2023-05-15 05:05] LABS: African American GFR (CKD) >90 (>60 ml/min/1.73 sqM); Anion Gap 8 mmol/L; Blood Urea Nitrogen 27 mg/dL (7-17); Calcium 7.9 mg/dL (8.4-10.2); Carbon Dioxide 21 mmol/L (22-30); Chloride 112 mmol/L (98-107); Glucose 67 mg/dL (74-99); Non-African American GFR(CKD) >90 (>60 ml/min/1.73 sqM); Potassium 3.6 mmol/L (3.5-5.1); Sodium 141 mmol/L (137-145)
[2023-05-15] MEDS: SODIUM CHLORIDE 0.9% 1,000 ML IV SCH ×2 (05:19→14:00)
[2023-05-15 05:39] LABS: Platelet Count 58 k/uL (150-450)
[2023-05-15] MEDS ORDERED: Potassium Replacement Protocol 1 EACH MISC MISCELLANE PRN (07:30)
[2023-05-15] MEDS ORDERED: POTASSIUM CHLORIDE ER 20 MEQ TAB.ER PO SCH ×2 (08:00→17:00)
[2023-05-15] MEDS: CHOLECALCIFEROL 125 MCG (5000 IU) TABLET PO SCH (08:17)
[2023-05-15] MEDS: PANTOPRAZOLE 40 MG TABLET PO SCH (08:17)
[2023-05-15] MEDS: levETIRAcetam 500 MG TAB PO SCH ×2 (08:17→20:34)
[2023-05-15] MEDS: FENOFIBRATE 54 MG TAB PO SCH (08:17)
[2023-05-15] MEDS: PRAVASTATIN SODIUM 20 MG TAB PO SCH (08:17)
[2023-05-15] MEDS ORDERED: FUROSEMIDE 10 MG/ML 4 ML VIAL IV STA ×2 (08:49→21:02)
--- NOTE | 2023-05-15 08:52 | XR ---
EXAMINATION TYPE: XR chest 1V portable DATE OF EXAM: 05/15/2023 Comparison: 06/28/2017 Clinical History: 67-year-old female hypoxia Findings: Reverse right shoulder arthroplasty. Heart mildly enlarged. Hyperinflation. Moderate right and small left pleural effusions with prominent lower lung opacities. Patchy and confluent airspace opacities r ight lung and left perihilar region. Impression: 1. Correlate for CHF with patchy pulmonary edema, right greater than left. 2. Moderate right and small left pleural effusions with prominent adjacent atelectasis and/or consoli dation.
[2023-05-15] MEDS ORDERED: POTASSIUM BICARBONATE/CIT AC 20 MEQ TABLET.EFF NG-TUBE SCH (09:00)
[2023-05-15] MEDS: ALPRAZolam 0.25 MG TAB PO PRN (09:10)
--- NOTE | 2023-05-15 10:19 | P.PN ---
Subjective Underwent left-sided stent insertion 05/12 of blood cultures growing E coli Denies any flank pain Objective - Vital Signs Vital signs: Vital Signs Temp 97.9 F 05/15/23 08:00 Pulse 84 05/15/23 10:00 Resp 26 H 05/15/23 10:00 BP 140/74 05/15/23 10:00 Pulse Ox 92 L 05/15/23 10:00 FiO2 Intake & Output 05/14/23 05/15/23 05/15/23 18:59 06:59 18:59 Intake Total 1500 1200 640 Output Total 1025 1015 1170 Balance 475 185 -530 Weight 83.6 kg Intake: IV 1300 1200 340 Dextrose 5% in Water 1, 200 000 ml @ 100 mls/hr IV . [id number] MARISA with Sodium Bicarb (1 Meq/ml) 150 ml Rx#:[id number] Piperacillin-Tazobactam 3 200 100 100 .375 gm In Sodium Chloride 0.9% 100 ml @ 25 mls/hr IVPB Q8HR MARISA Rx# :[id number] Sodium Chloride 0.9% 1, 900 1100 240 000 ml @ 20 mls/hr IV . Q24H MARISA Rx#:[id number] Oral 200 300 Output: Urine 1025 1015 1170 Other: Voiding Method Indwelling Catheter Indwelling Catheter Indwelling Catheter - Constitutional General appearance: Present: no acute distress - Gastrointestinal General gastrointestinal: Present: soft. Absent: tenderness - Psychiatric Psychiatric: Present: A&O x's 3 - Labs CBC & Chem 7: 05/15/23 03:49 05/15/23 03:49 Labs: Abnormal Lab Results - Last 24 Hours (Table) 05/14/23 05/15/23 05/15/23 Range/Units 15:39 03:49 03:49 WBC 12.6 H (3.8-10.6) k/uL RBC 3.47 L (3.80-5.40) m/uL Hgb 10.6 L (11.4-16.0) gm/dL Hct 32.4 L (34.0-46.0) % Plt Count 58 L (150-450) k/uL Chloride 112 H (98-107) mmol/L Carbon Dioxide 21 L (22-30) mmol/L BUN 27 H (7-17) mg/dL Glucose 67 L (74-99) mg/dL Calcium 7.9 L (8.4-10.2) mg/dL Iron 9 L (50-170) UG/DL % Saturation 3.63 L (12.00-45.00) Transferrin 177.0 L (204.0-354.0) mg/dL Ferritin 671.0 H (10.0-291.0) ng/mL Vitamin B12 >3600.0 H (200.0-944.0) pg/mL Microbiology - Last 24 Hours (Table) 05/12/23 02:55 Blood Culture Gram Stain - Final Blood Blood Culture - Final Escherichia coli Assessment and Plan Assessment: 67-year-old female history of a 3 mm left-sided ureteral stone patient was septic secondary to her stone. Underwent left-sided stent insertion on 05/12. Patient is in the ICU hemodynamically stable. Blood cultures growing E.coli -Keep Levy catheter in place until patient is out of the ICU -Follow up on blood and urine cultures -From Urology standpoint she is ok to transfer out of the ICU
--- NOTE | 2023-05-15 12:53 | P.PN ---
Subjective Progress Note Date: 05/15/23 67 year old F with PMH of fibromyalgia and chronic pain with narcotic dependence, seizure disorder, HLD who presented to the ED for flank pain, fevers, chills. Severe sharp back/flank on the left side which did not improve with medication. Afebrile, BP 95/68, HR 96, 93% on 4 L nasal cannula. CBC Hg 11.2, Plt 49. BMP K 3.4, Cl 115, CO2 14, BUN of 33, Cr 1.26, albumin 2.6. Ca 7.9. LFT Total bilirubin 1.5, AST 49, ALT of 22. Lipase was 106, amylase was 39. Lactic acid is 1.3. Troponins 0.086. COVID negative. Patient was taken to the operating room where she underwent cystoscopy and left ureteral stent placement. Post operatively, patient required phenylephrine to maintain MAP > 65, therefore was transferred to ICU. Initially started on Rocephin, switched to Zosyn on 05/13. Blood cultures are positive for GNB. 05/14 Patient was seen and examined in the ICU. Sleeping but easily arousable. Answers questions appropriately then goes back to sleep. CBC WBC 14.2 Hg 10.4 Plt 46. BMP K 3.4, Cl 110, BUN 37, glu 102, Ca 7.6. D-Dimer > 34. INR 1.5. PT 15.7. BCx GNB. Antibiotics include Zosyn. Currently on D5W with sodium bicarb running at 100 cc/hr. Weaned off Phenylephrine for the time being. 05/15 Patient was seen and examined. Generalized pain from fibromyalgias. Requiring 4L NC to maintain O2 sat > 92%. CBC WBC 12.6 Hg 10.6 Plt 58. BMP Cl 112, bicarb 21, BUN 27, glu 67, Ca 7.9. Iron 9. Ferritin 671. B12 > 3600. Hep and HIV panel negative. Hematology consulted for possible DIC, workup negative, no heparin products until Plt > 50, transfuse if Hg < 7 or Plt < 10. BCx E. coli sensitive to Zosyn. D5W with sodium bicarb discontinued. General: non toxic, no distress, appears at stated age Derm: warm, dry Head: atraumatic, normocephalic, symmetric Eyes: EOMI, no lid lag, anicteric sclera Cardiovascular: S1S2 reg, no murmur Lungs: Clear to auscultation bilaterally , no accessory muscle use Ext: no gross muscle atrophy, no edema, no contractures Neuro: no focal neuro deficits Psych: Alert, oriented, sleepy L CVA tenderness Based on my assessment of this patient, this patient meets a high complexity level of care. Patient has an acute diagnosis of sepsis due to pyelonephritis that poses a threat to life or bodily function. Acute hypoxic respiratory failure: Requiring 4L NC to maintain O2 sat > 92%. Possible volume overload. Obtain CXR. Concern for PE given elevated D-Dimer. Severe sepsis with pyelonephritis and gram negative bacteremia: Zosyn 3.375 g IV TID (D3). Repeat BCx. Telemetry monitoring. Maintain MAP > 65. Nephrolithiasis: Status post cystoscopy and left ureteral stent placement. Urology on board. Prerenal azotemia: Resolving. Encourage hydration by mouth. Thrombocytopenia: Likely reactive. DIC workup negative per Hematology. Avoid heparin products. Transfuse if Plt < 10. Iron deficiency anemia: Transfuse if Hg < 7. Elevated D-Dimer: Likely due to severe sepsis. Fibromyalgia Chronic pain with narcotic dependence: [place] 7.5 Q4 PRN for severe pain. Seizure disorder: Keppra 500 mg PO BID. Hyperlipidemia: Pravachol 20 mg PO QD. CODE STATUS: FULL CODE DVT Prophylaxis: SCD GI Prophylaxis: Protonix PO Designated medical POA if patient is not able to make medical decisions for themselves: I have reviewed the following property consultant notes: Urology, Hematology, Pulmonology note. I have reviewed the results of the following tests: CBC. BMP. Iron studies. B12. Hep and HIV panel. I have ordered the following tests: CBC, BMP. CXR. Pending: Repeat BCx. I have discussed the care of this patient with the following independent historian: I have independently interpreted the following test below: I have discussed the management of this patient with the following physician: Objective - Vital Signs Vital signs: Vital Signs Temp 97.9 F 05/15/23 08:00 Pulse 79 05/15/23 08:00 Resp 18 05/15/23 08:00 BP 142/87 05/15/23 08:00 Pulse Ox 94 L 05/15/23 08:00 FiO2 Intake & Output 05/14/23 05/15/23 05/15/23 18:59 06:59 18:59 Intake Total 1500 1200 400 Output Total 1025 1015 395 Balance 475 185 5 Weight 83.6 kg Intake: IV 1300 1200 300 Dextrose 5% in Water 1, 200 000 ml @ 100 mls/hr IV . [id number] MARISA with Sodium Bicarb (1 Meq/ml) 150 ml Rx#:[id number] Piperacillin-Tazobactam 3 200 100 100 .375 gm In Sodium Chloride 0.9% 100 ml @ 25 mls/hr IVPB Q8HR MARISA Rx# :[id number] Sodium Chloride 0.9% 1, 900 1100 200 000 ml @ 100 mls/hr IV . Q10H MARISA Rx#:[id number] Oral 200 100 Output: Urine 1025 1015 395 Other: Voiding Method Indwelling Catheter Indwelling Catheter Indwelling Catheter - Labs CBC & Chem 7: 05/15/23 03:49 05/15/23 03:49 Labs: Abnormal Lab Results - Last 24 Hours (Table) 05/14/23 05/15/23 05/15/23 Range/Units 15:39 03:49 03:49 WBC 12.6 H (3.8-10.6) k/uL RBC 3.47 L (3.80-5.40) m/uL Hgb 10.6 L (11.4-16.0) gm/dL Hct 32.4 L (34.0-46.0) % Plt Count 58 L (150-450) k/uL Chloride 112 H (98-107) mmol/L Carbon Dioxide 21 L (22-30) mmol/L BUN 27 H (7-17) mg/dL Glucose 67 L (74-99) mg/dL Calcium 7.9 L (8.4-10.2) mg/dL Iron 9 L (50-170) UG/DL % Saturation 3.63 L (12.00-45.00) Transferrin 177.0 L (204.0-354.0) mg/dL Ferritin 671.0 H (10.0-291.0) ng/mL Vitamin B12 >3600.0 H (200.0-944.0) pg/mL Microbiology - Last 24 Hours (Table) 05/12/23 02:55 Blood Culture Gram Stain - Final Blood Blood Culture - Final Escherichia coli
--- NOTE | 2023-05-15 14:00 | P.PN ---
Subjective Progress Note Date: 05/15/23 Principal diagnosis: Septic shock, urosepsis This patient is 67, history of fibromyalgia, history of seizure disorder and hyperlipidemia, presented to us following a left ureteral stent insertion for a left ureteral stone and secondary infection sepsis. The patient became septic from a 3 mm left-sided ureteral stone and she had symptoms of pyelonephritis. Patient was taken to the operating room. The patient underwent cystoscopy with a left stent insertion. The postop, the patient became hypotensive. She was given a total of 3 L of IV fluids with normal saline. Currently she is on Robert- Synephrine at 1.9 mcg/kg/m. Awake and alert and communicating. Her pain along the left flank is subsided. No hematuria. Urine output is improving. UA and urine culture still pending for now. The patient on IV Rocephin 2 g every 24 hours. No altered mentation. No nausea and emesis. No other new complaints otherwise for now. Today's evaluation of 05/13/2023, the patient is being seen for a follow-up. The patient is septic with a gram-negative bacillus or sitting from the urinary tract infection. She is post left ureteral stenting. Urine output is in order of 30-40 mL an hour. The patient is currently on a bicarb infusion. The patient is also on Robert-Synephrine and doses were reduced down to 0.3 mcg/kg/m. The patient otherwise is a bit lethargic. She did have some panic attacks yesterday and she was given Ativan. The Dilaudid was +14, 10.5 and a platelet count is down to 41. BUN is 41 with a creatinine of 1.2 and the sodium levels is 143. Blood cultures positive for gram-negative bacillus and the patient is currently on IV Zosyn. Reevaluated today on 05/14/20, patient remains in the ICU, on 4 L nasal cannula, patient has been off norepinephrine since midnight, still receiving bicarb drip, serum receiving antibiotics, blood cultures are positive for gram-negative bacilli, patient is being also evaluated by hematology for possible DIC. Libby t is status post stent placement by urology. Patient has mostly intermittent episodes of nausea, no pain, no shortness of breath. WBC count today is 14.2 hemoglobin is 10.4. Basic metabolic profile is normal except for low potassium of 3.4. Patient does have elevated d-dimer, slightly elevated fibrinogen, and elevated INR. Patient's initial presentation was a presentation of sepsis, septic shock, pyelonephritis, gram-negative bacteremia, remains on Zosyn, final cultures are pending. Patient was reevaluated today on 05/15/2023, we are seeing this patient in the ICU for E. coli bacteremia and pyelonephritis, sepsis and septic shock, patient can use to have significant amount of pain related to her fibromyalgia, unable to move much in bed, slight worsening of shortness of breath, worsening of the chest x-ray today, showing evidence of pulmonary edema right greater than left, and moderate right-sided pleural effusion with left-sided pleural effusion, clearly the patient is developing some component of pulmonary edema, could be cardiogenic or noncardiogenic nonetheless the patient will likely benefit from diuresis. I did recommend Lasix 40 mg IV push 1, cut down her IV fluids to KVO. W see count today is 12.6 hemoglobin 10.6 basic metabolic profile is normal renal profile is normal, hepatitis screen has been negative. And the patient tested negative for COVID-19 infection on admission. Patient had left sided stent insertion by urology on 05/12, her blood cultures have been positive for E. coli, patient denies any flank pain. She does have generalized pain related to fibromyalgia. Patient remains on Zosyn although the E. coli sensitive to Zosyn, but it seems to be were dealing with ESBL E. coli, and I'm recommending to start the patient on Merrem, and have infectious disease evaluate Objective - Vital Signs Vital signs: Vital Signs Temp 96.7 F L 05/15/23 12:00 Pulse 76 05/15/23 13:00 Resp 19 05/15/23 13:00 BP 129/70 05/15/23 13:00 Pulse Ox 96 05/15/23 13:00 FiO2 Intake & Output 05/14/23 05/15/23 05/15/23 18:59 06:59 18:59 Intake Total 1500 1200 800 Output Total 1025 1015 3320 Balance 475 185 -2520 Weight 83.6 kg Intake: IV 1300 1200 400 Dextrose 5% in Water 1, 200 000 ml @ 100 mls/hr IV . [id number] MARISA with Sodium Bicarb (1 Meq/ml) 150 ml Rx#:[id number] Piperacillin-Tazobactam 3 200 100 100 .375 gm In Sodium Chloride 0.9% 100 ml @ 25 mls/hr IVPB Q8HR MARISA Rx# :[id number] Sodium Chloride 0.9% 1, 900 1100 300 000 ml @ 20 mls/hr IV . Q24H MARISA Rx#:[id number] Oral 200 400 Output: Urine 1025 1015 3320 Other: Voiding Method Indwelling Catheter Indwelling Catheter Indwelling Catheter - Exam Physical Exam: Revealed a 67-year-old female in no distress Head: Atraumatic, normocephalic. HEENT:[Neck is supple.] [No neck masses.] [No thyromegaly.] [No JVD.] Chest: [Clear throughout, no crackles, no rhonchi, no wheezes.] Cardiac Exam: [Normal S1 and S2, no S3 gallop, no murmur.] Abdomen: [Soft, nontender, no megaly, no rebound, no guarding, normal bowel sounds.] Extremities: [No clubbing, no edema, no cyanosis.] Neurological Exam: [No focal neurologic deficit.] Psychiatric: Normal mood, affect and normal mental status examination. Skin: No rashes. - Labs CBC & Chem 7: 05/15/23 03:49 05/15/23 03:49 Labs: Abnormal Lab Results - Last 24 Hours (Table) 05/14/23 05/15/23 05/15/23 Range/Units 15:39 03:49 03:49 WBC 12.6 H (3.8-10.6) k/uL RBC 3.47 L (3.80-5.40) m/uL Hgb 10.6 L (11.4-16.0) gm/dL Hct 32.4 L (34.0-46.0) % Plt Count 58 L (150-450) k/uL Chloride 112 H (98-107) mmol/L Carbon Dioxide 21 L (22-30) mmol/L BUN 27 H (7-17) mg/dL Glucose 67 L (74-99) mg/dL Calcium 7.9 L (8.4-10.2) mg/dL Iron 9 L (50-170) UG/DL % Saturation 3.63 L (12.00-45.00) Transferrin 177.0 L (204.0-354.0) mg/dL Ferritin 671.0 H (10.0-291.0) ng/mL Vitamin B12 >3600.0 H (200.0-944.0) pg/mL Microbiology - Last 24 Hours (Table) 05/12/23 02:55 Blood Culture Gram Stain - Final Blood Blood Culture - Final Escherichia coli Assessment and Plan Assessment: Impression: Septic shock secondary to pyelonephritis and E. coli/ESBL bacteremia Left ureteral stone with complicated urinary tract infection/pyelonephritis status post cystoscopy and insertion of left ureteral stent Acute hypoxic respiratory failure secondary to above, improving Bilateral pleural effusions, suspect pulmonary edema, could be cardiogenic or noncardiogenic nonetheless the patient would benefit from diuresis at this point Acute lactic acidosis, resolved History of fibromyalgia History of seizures Acute thrombocytopenia, most likely secondary to sepsis. Recommendation: Changes Zosyn to meropenem Consult infectious disease for her ESBL bacteremia and sepsis Lasix 40 mg IV push 1 Continue to monitor electrolytes Continue Keppra for seizure disorder Continue IV fluids however considering the pleural effusion is noted on the chest x-ray today cut down her IV fluid to KVO Consult infectious disease Continue GI and DVT prophylaxis We will continue to follow Time with Patient: Less than 30
[2023-05-15] MEDS: oxyCODONE-APAP 10-325MG 1 EACH TAB PO PRN ×2 (15:25→20:33)
[2023-05-15] MEDS: MEROPENEM 1 GM in SODIUM CHLORIDE 0.9% 100 ML IVPB SCH (15:28)
--- NOTE | 2023-05-15 16:15 | P.PN ---
Subjective Progress Note Date: 05/15/23 Principal diagnosis: Thrombocytopenia In follow-up today patient is sitting in the chair. She still doesn't feel well but, think she might be a little better than yesterday. No current nausea, shortness of breath, did not report any acute changes in bowel or bladder. Denies any bleeding. Objective - Vital Signs Vital signs: Vital Signs Temp 98.2 F 05/15/23 16:00 Pulse 86 05/15/23 16:00 Resp 22 05/15/23 16:00 BP 135/73 05/15/23 16:00 Pulse Ox 91 L 05/15/23 16:00 FiO2 Intake & Output 05/14/23 05/15/23 05/15/23 18:59 06:59 18:59 Intake Total 1500 1200 1060 Output Total 1025 1015 3845 Balance 475 185 -2785 Weight 83.6 kg Intake: IV 1300 1200 460 Dextrose 5% in Water 1, 200 000 ml @ 100 mls/hr IV . [id number] [facility] with Sodium Bicarb (1 Meq/ml) 150 ml Rx#:[id number] Piperacillin-Tazobactam 3 200 100 100 .375 gm In Sodium Chloride 0.9% 100 ml @ 25 mls/hr IVPB Q8HR [facility] Rx# :[id number] Sodium Chloride 0.9% 1, 900 1100 360 000 ml @ 20 mls/hr IV . Q24H [facility] Rx#:[id number] Intake, IV Titration 100 Amount Meropenem 1 gm In Sodium 100 Chloride 0.9% 100 ml @ 33 .3 mls/hr IVPB Q8HR [facility] Rx#:[id number] Oral 200 500 Output: Urine 1025 1015 3845 Other: Voiding Method Indwelling Catheter Indwelling Catheter Indwelling Catheter - Constitutional General appearance: Present: average body habitus, cooperative, no acute distress - EENT Eyes: Present: anicteric sclerae, EOMI ENT: Present: hearing grossly normal, normal oropharynx - Respiratory Details: Respirations even and unlabored at rest - Cardiovascular Rhythm: regular - Peripheral edema leg Peripheral Edema: bilateral: None - Neurologic Neurologic: Present: CNII-XII intact (Grossly) - Musculoskeletal Musculoskeletal: Present: generalized weakness, strength equal bilaterally - Psychiatric Psychiatric: Present: A&O x's 3, appropriate affect, intact judgment & insight - Labs CBC & Chem 7: 05/15/23 03:49 05/15/23 03:49 Labs: Abnormal Lab Results - Last 24 Hours (Table) 05/14/23 05/15/23 05/15/23 Range/Units 15:39 03:49 03:49 WBC 12.6 H (3.8-10.6) k/uL RBC 3.47 L (3.80-5.40) m/uL Hgb 10.6 L (11.4-16.0) gm/dL Hct 32.4 L (34.0-46.0) % Plt Count 58 L (150-450) k/uL Chloride 112 H (98-107) mmol/L Carbon Dioxide 21 L (22-30) mmol/L BUN 27 H (7-17) mg/dL Glucose 67 L (74-99) mg/dL Calcium 7.9 L (8.4-10.2) mg/dL Iron 9 L (50-170) UG/DL % Saturation 3.63 L (12.00-45.00) Transferrin 177.0 L (204.0-354.0) mg/dL Ferritin 671.0 H (10.0-291.0) ng/mL Vitamin B12 >3600.0 H (200.0-944.0) pg/mL Microbiology - Last 24 Hours (Table) 05/12/23 02:55 Blood Culture Gram Stain - Final Blood Blood Culture - Final Escherichia coli Assessment and Plan (1) Thrombocytopenia Current Visit: Yes Status: Acute Priority: High Code(s): D69.6 - THROMBOCYTOPENIA, UNSPECIFIED SNOMED Code(s): 414519263 (2) Anemia Current Visit: Yes Status: Acute Priority: High Code(s): D64.9 - ANEMIA, UNSPECIFIED SNOMED Code(s): 163623044 Plan: Anemia and thrombocytopenia -New onset, this admit. Chart review show normal Hgb and plt counts in this medical record (most recent 09/23). -Anemia workup most consistent with anemia of inflammation. No supplementation needed at this time. Hemoglobin stable at 10.6 today. -Thrombocytopenia workup negative so far. Plt count slightly improved to 58,000 today. -[place] most likely that significant change in counts is 2/2 sepsis. Would anticipate improvement in counts as acute condition is treated -Sepsis, blood cultures positive for Escherichia coli -DIC work up neg -Anticoagulation/DVT prophylaxis has not been given this admit so, no need for HIT ab testing -SCDs for DVT prophylaxis Can be initiated and continued as long as platelets remain above 50,000. -Transfuse for a Hgb< 7 or plt <10,000 unless symptomatic Attests: I have seen and examined pt, performed H&P, developed impression and plan of care. Discussed with dictator. Agree with documentation, dictated as a scribe.
--- NOTE | 2023-05-15 20:42 | XR ---
EXAMINATION TYPE: XR chest 1V portable DATE OF EXAM: 05/15/2023 8:36 PM CLINICAL INDICATION:Female, 67 years old with history of INC O2 DEMANDS; [facility] COMPARISON: Chest radiographs from same day TECHNIQUE: XR chest 1V portable Frontal view of the chest. FINDINGS: Lungs/Pleura: No evidence of focal consolidation or pneumothorax. Blunting of the costophrenic angles is present. Pulmonary vascularity: Pulmonary vascular congestion. Heart/mediastinum: Cardiac mediastinal silhouette is enlarged. Cardiomediastinal silhouette is partia lly obscured due to overlying and adjacent opacities. Musculoskeletal: No acute osseous pathology. Right shoulder arthroplasty hardware appears intact. Other findings: None IMPRESSION: Cardiomegaly, pulmonary vascular congestion and bilateral pleural effusions. Correlate with BNP for c ongestive heart failure.
--- NOTE | 2023-05-15 22:26 | P.CONS ---
History of Present Illness - Reason for Consult Consult date: 05/15/23 - History of Present Illness Patient is a 67-year-old female with a past medical history significant for hyperlipidemia seizure disorder fibromyalgia patient presented to the hospital 4 days ago for evaluation of abdominal pain apparently the patient initially presented to a different facility and she was diagnosed with a left-sided kidney stone and suspected sepsis from it as the patient did have a CT of the abdominal pelvis with evidence of left-sided hydronephrosis for which the patient was transferred to this facility patient was evaluated by urology and the patient did have a cystoscopy and left ureteral stent placement patient on presentation to the hospital did have a fever 100.7 degrees for night no significant tachycardia hypertension patient did have a white count of 14,000 with a left shift creatinine was 1.26 subsequently normalized Lumizyme is mildly elevated influenza RSV COVID HIV and hepatitis panel was negative patient blood cultures came back positive with ESBL E. coli patient antibiotics were adjusted to meropenem from [facility] infectious disease was consulted for further management of antibiotic therapy, patient at the time evaluation feeling weak and tired no energy patient denies having any headache or URI symptoms no chest pain or shortness with occasional cough some nausea no vomiting abdominal pain has decreased in intensity and denies having any diarrhea Past Medical History Past Medical History: Fibromyalgia, Hyperlipidemia, Seizure Disorder History of Any Multi-Drug Resistant Organisms: ESBL Year Discovered:: 05/12/23 MDRO Source:: Blood Past Surgical History: Hysterectomy, Orthopedic Surgery Past Anesthesia/Blood Transfusion Reactions: No Reported Reaction Past Psychological History: No Psychological Hx Reported Smoking Status: Never smoker Past Alcohol Use History: None Reported Past Drug Use History: None Reported - Past Family History Father Family Medical History: Deep Vein Thrombosis (DVT) Mother Family Medical History: Osteoarthritis (OA) Medications and Allergies Home Medications Medication Instructions Recorded Confirmed Type HYDROcodone/APAP 7.5-325MG [[place] 1 tab PO Q4H PRN 06/27/17 05/12/23 History 7.5-325] Pravastatin Sodium [Pravachol] 20 mg PO DAILY 06/27/17 05/12/23 History Aspirin EC [Ecotrin Low Dose] 81 mg PO DAILY 05/12/23 05/12/23 History Celecoxib [CeleBREX] 200 mg PO BID 05/12/23 05/12/23 History Cephalexin [Keflex] 500 mg PO Q6HR 05/12/23 05/12/23 History Cholecalciferol [Vitamin D3 (125 125 mcg PO DAILY 05/12/23 05/12/23 History Mcg = 5000 Iu)] Fenofibrate,Micronized 200 mg PO DAILY 05/12/23 05/12/23 History [Fenofibrate] Ondansetron Odt [Zofran Odt] 4 mg PO TID PRN 05/12/23 05/12/23 History Pantoprazole [Protonix] 40 mg PO DAILY 05/12/23 05/12/23 History levETIRAcetam [Keppra] 500 mg PO Q12HR 05/12/23 05/12/23 History Allergies Allergy/AdvReac Type Severity Reaction Status Date / Time Sulfa (Sulfonamide Allergy Rash/Hives Verified 05/12/23 11:31 Antibiotics) Physical Exam Vitals: Vital Signs Temp Pulse Pulse Resp BP Pulse Ox 05/15/23 14:00 71 19 127/72 93 L 05/15/23 13:00 76 19 129/70 96 05/15/23 12:00 96.7 F L 77 89 21 147/79 95 05/15/23 11:00 80 19 148/73 93 L 05/15/23 10:00 84 26 H 140/74 92 L 05/15/23 09:42 94 L 05/15/23 09:00 96 32 H 149/93 94 L 05/15/23 08:30 96 29 H 144/80 79 L 05/15/23 08:00 97.9 F 79 18 142/87 94 L 05/15/23 07:00 90 18 151/87 90 L 05/15/23 06:00 85 19 132/71 92 L 05/15/23 05:00 73 19 135/72 92 L 05/15/23 04:00 98.5 F 68 17 145/71 92 L 05/15/23 03:00 77 19 131/80 92 L 05/15/23 02:00 69 13 117/59 94 L 05/15/23 01:00 74 12 126/72 94 L 05/15/23 00:00 98.2 F 84 18 149/77 94 L 05/14/23 23:40 79 05/14/23 23:30 85 05/14/23 23:00 89 16 159/84 87 L 05/14/23 22:17 87 19 159/84 92 L 05/14/23 22:00 92 19 159/84 91 L 05/14/23 21:00 88 17 148/77 89 L 05/14/23 20:00 98.1 F 78 16 140/74 93 L 05/14/23 19:00 75 17 137/72 94 L 05/14/23 18:00 79 19 147/81 95 05/14/23 17:00 75 14 129/70 98 05/14/23 16:00 97.6 F 75 17 137/75 96 05/14/23 15:00 75 19 129/74 92 L Intake and Output 05/14/23 05/15/23 05/15/23 22:59 06:59 14:59 Intake Total 900 800 820 Output Total 563 290 3456 Balance 170 165 -2675 Intake: IV 900 800 420 Piperacillin-Tazobactam 3 100 100 100 .375 gm In Sodium Chloride 0.9% 100 ml @ 25 mls/hr IVPB Q8HR [facility] Rx# :[id number] Sodium Chloride 0.9% 1, 800 700 320 000 ml @ 20 mls/hr IV . Q24H [facility] Rx#:[id number] Oral 400 Output: Urine 350 113 5027 Other: Voiding Method Indwelling Catheter Indwelling Catheter Indwelling Catheter Weight 83.6 kg Results CBC & Chem 7: 05/15/23 03:49 05/15/23 15:57 Labs: Abnormal Lab Results - Last 24 Hours (Table) 05/14/23 05/15/23 05/15/23 Range/Units 15:39 03:49 03:49 WBC 12.6 H (3.8-10.6) k/uL RBC 3.47 L (3.80-5.40) m/uL Hgb 10.6 L (11.4-16.0) gm/dL Hct 32.4 L (34.0-46.0) % Plt Count 58 L (150-450) k/uL Chloride 112 H (98-107) mmol/L Carbon Dioxide 21 L (22-30) mmol/L BUN 27 H (7-17) mg/dL Glucose 67 L (74-99) mg/dL Calcium 7.9 L (8.4-10.2) mg/dL Iron 9 L (50-170) UG/DL % Saturation 3.63 L (12.00-45.00) Transferrin 177.0 L (204.0-354.0) mg/dL Ferritin 671.0 H (10.0-291.0) ng/mL Vitamin B12 >3600.0 H (200.0-944.0) pg/mL Microbiology - Last 24 Hours (Table) 05/12/23 02:55 Blood Culture Gram Stain - Final Blood Blood Culture - Final Escherichia coli Assessment and Plan Plan: 1patient presented to hospital with sepsis initially in this patient who did have a fever elevated white count source is complicated UTI in this patient who did have a left-sided hydronephrosis secondary to left ureteral stone requiring cystoscopy and ureteral stent placement. 2patient with ESBL E. coli bacteremia source is likely left-sided pyelonephrit is. 3blood cultures will be repeated document clearance of bacteremia 4-we will get the patient on meropenem 1 g every 8 hours patient will need midline and outpatient IV antibiotic therapy on discharge for her bacteremia We will follow on clinical condition and cultures to further adjust medication if needed Thank you for this consultation we will follow the patient along with you Dictation was produced using Deeplink dictation software. please excuse any grammatical, word or spelling errors. Time with Patient: Greater than 30
[2023-05-16] MEDS: MEROPENEM 1 GM in SODIUM CHLORIDE 0.9% 100 ML IVPB SCH ×3 (00:16→15:31)
[2023-05-16] MEDS: oxyCODONE-APAP 10-325MG 1 EACH TAB PO PRN ×4 (00:16→20:33)
[2023-05-16] MEDS: ALPRAZolam 0.25 MG TAB PO PRN (00:16)
[2023-05-16 05:10] LABS: HCT 37.3 % (34.0-46.0); HGB 12.2 gm/dL (11.4-16.0); MCH 30.1 pg (25.0-35.0); MCHC 32.8 g/dL (31.0-37.0); MCV 91.9 fL (80.0-100.0); Mean Platelet Volume 9.4; Platelet Count 83 k/uL (150-450); RBC 4.06 m/uL (3.80-5.40); WBC 13.4 k/uL (3.8-10.6)
[2023-05-16 05:26] LABS: African American GFR (CKD) >90 (>60 ml/min/1.73 sqM); Anion Gap 9 mmol/L; Blood Urea Nitrogen 19 mg/dL (7-17); Calcium 8.8 mg/dL (8.4-10.2); Carbon Dioxide 33 mmol/L (22-30); Chloride 101 mmol/L (98-107); Glucose 108 mg/dL (74-99); Non-African American GFR(CKD) 88 (>60 ml/min/1.73 sqM); Potassium 3.2 mmol/L (3.5-5.1); Sodium 143 mmol/L (137-145)
[2023-05-16] MEDS: POTASSIUM CHLORIDE ER 20 MEQ TAB.ER PO SCH ×2 (06:45→08:18)
[2023-05-16 06:55] LABS: Methylmalonic Acid 0.39 umol/L (<0.40)
[2023-05-16] MEDS: CHOLECALCIFEROL 125 MCG (5000 IU) TABLET PO SCH (08:19)
[2023-05-16] MEDS: levETIRAcetam 500 MG TAB PO SCH ×2 (08:19→20:33)
[2023-05-16] MEDS: PRAVASTATIN SODIUM 20 MG TAB PO SCH (08:19)
[2023-05-16] MEDS: FENOFIBRATE 54 MG TAB PO SCH (08:19)
[2023-05-16] MEDS: PANTOPRAZOLE 40 MG TABLET PO SCH (08:22)
[2023-05-16] MEDS ORDERED: FUROSEMIDE 10 MG/ML 4 ML VIAL IV STA (09:13)
--- NOTE | 2023-05-16 09:28 | XR ---
EXAMINATION TYPE: XR chest 1V portable DATE OF EXAM: 05/16/2023 5:10 AM CLINICAL INDICATION:Female, 67 years old with history of bilateral pleural effusions; edema; [facility] COMPARISON: Chest radiographs from 05/15/2023 TECHNIQUE: XR chest 1V portable Frontal view of the chest. FINDINGS: Lungs/Pleura: No evidence of focal consolidation or pneumothorax. Blunting of the costophrenic angles is present. Pulmonary vascularity: Pulmonary vascular congestion. Heart/mediastinum: Cardiomediastinal silhouette is enlarged and stable. Musculoskeletal: No acute osseous pathology. IMPRESSION: Similar, Cardiomegaly, pulmonary vascular congestion and bilateral pleural effusions. Correlate with BNP for congestive heart failure.
--- NOTE | 2023-05-16 10:44 | P.PN ---
Subjective Progress Note Date: 05/16/23 67 year old F with PMH of fibromyalgia and chronic pain with narcotic dependence, seizure disorder, HLD who presented to the ED for flank pain, fevers, chills. Severe sharp back/flank on the left side which did not improve with medication. Afebrile, BP 95/68, HR 96, 93% on 4 L nasal cannula. CBC Hg 11.2, Plt 49. BMP K 3.4, Cl 115, CO2 14, BUN of 33, Cr 1.26, albumin 2.6. Ca 7.9. LFT Total bilirubin 1.5, AST 49, ALT of 22. Lipase was 106, amylase was 39. Lactic acid is 1.3. Troponins 0.086. COVID negative. Patient was taken to the operating room where she underwent cystoscopy and left ureteral stent placement. Post operatively, patient required phenylephrine to maintain MAP > 65, therefore was transferred to ICU. Initially started on Rocephin, switched to Zosyn on 05/13. Blood cultures are positive for GNB. 05/14 Patient was seen and examined in the ICU. Sleeping but easily arousable. Answers questions appropriately then goes back to sleep. CBC WBC 14.2 Hg 10.4 Plt 46. BMP K 3.4, Cl 110, BUN 37, glu 102, Ca 7.6. D-Dimer > 34. INR 1.5. PT 15.7. BCx GNB. Antibiotics include Zosyn. Currently on D5W with sodium bicarb running at 100 cc/hr. Weaned off Phenylephrine for the time being. 05/15 Patient was seen and examined. Generalized pain from fibromyalgias. Requiring 4L NC to maintain O2 sat > 92%. CBC WBC 12.6 Hg 10.6 Plt 58. BMP Cl 112, bicarb 21, BUN 27, glu 67, Ca 7.9. Iron 9. Ferritin 671. B12 > 3600. Hep and HIV panel negative. Hematology consulted for possible DIC, workup negative, no heparin products until Plt > 50, transfuse if Hg < 7 or Plt < 10. BCx E. coli sensitive to Zosyn. D5W with sodium bicarb discontinued. 05/16 Patient was seen and examined. CXR done yesterday showed pulmonary edema with bilateral pleural effusion. Given 2 doses of Lasix 40 mg IV yesterday. Started on Lasix 40 mg IV BID. Diuresied 5.655L so far. CXR done today showed i mproved aeration compared to yesterday. CBC WBC 13.4 Plt 83. BMP K 32, bicarb 33, BUN 19, glu 108. ID consulted, Zosyn switched to Meropenem 05/15. Repeat BCx negative so far. General: non toxic, no distress, appears at stated age Derm: warm, dry Head: atraumatic, normocephalic, symmetric Eyes: EOMI, no lid lag, anicteric sclera Cardiovascular: S1S2 reg, no murmur Lungs: Clear to auscultation bilaterally , no accessory muscle use Ext: no gross muscle atrophy, no edema, no contractures Neuro: no focal neuro deficits Psych: Alert, oriented, sleepy L CVA tenderness Based on my assessment of this patient, this patient meets a high complexity level of care. Patient has an acute diagnosis of sepsis due to pyelonephritis that poses a threat to life or bodily function. Acute hypoxic respiratory failure due to pulmonary edema and bilateral pleural effusion: [place] volume overload. Concern for PE given elevated D-Dimer but less likely since improving with Lasix. Echocardiogram ordered. Severe sepsis with pyelonephritis and gram negative bacteremia: Zosyn 3.375 g IV TID (D4) switched to Meropenem 1g IV TID (D2). Repeat BCx. Telemetry monitoring. Maintain MAP > 65. Nephrolithiasis: Status post cystoscopy and left ureteral stent placement. Urology on board. Prerenal azotemia: Resolving. Encourage hydration by mouth. Thrombocytopenia: Likely reactive. DIC workup negative per Hematology. Avoid heparin products. Transfuse if Plt < 10. Iron deficiency anemia: Transfuse if Hg < 7. Elevated D-Dimer: Likely due to severe sepsis. Fibromyalgia Chronic pain with narcotic dependence: [place] 7.5 Q4 PRN for severe pain. Seizure disorder: Keppra 500 mg PO BID. Hyperlipidemia: Pravachol 20 mg PO QD. CODE STATUS: FULL CODE DVT Prophylaxis: SCD GI Prophylaxis: Protonix PO Designated medical POA if patient is not able to make medical decisions for themselves: I have reviewed the following accounting policy consultant notes: Urology, Hematology, Pulmonology note. I have reviewed the results of the following tests: CBC. BMP. Repeat BCx. I have ordered the following tests: CBC, BMP. I have discussed the care of this patient with the following independent historian: I have independently interpreted the following test below: CXR. I have discussed the management of this patient with the following physician: Objective - Vital Signs Vital signs: Vital Signs Temp 98.5 F 05/16/23 04:00 Pulse 85 05/16/23 07:00 Resp 16 05/16/23 07:00 BP 159/88 05/16/23 07:00 Pulse Ox 94 L 05/16/23 07:00 FiO2 Intake & Output 05/15/23 05/16/23 05/16/23 18:59 06:59 18:59 Intake Total 1200 340 20 Output Total 4070 3125 150 Balance -0120 -2785 -130 Weight 76.5 kg Intake: IV 500 340 20 Meropenem 1 gm In Sodium 100 Chloride 0.9% 100 ml @ 33 .3 mls/hr IVPB Q8HR [facility] Rx#:[id number] Piperacillin-Tazobactam 3 100 .375 gm In Sodium Chloride 0.9% 100 ml @ 25 mls/hr IVPB Q8HR [facility] Rx# :[id number] Sodium Chloride 0.9% 1, 400 240 20 000 ml @ 20 mls/hr IV . Q24H [facility] Rx#:[id number] Intake, IV Titration 100 Amount Meropenem 1 gm In Sodium 100 Chloride 0.9% 100 ml @ 33 .3 mls/hr IVPB Q8HR [facility] Rx#:[id number] Oral 600 Output: Urine 4070 3125 150 Other: Voiding Method Indwelling Catheter Indwelling Catheter - Labs CBC & Chem 7: 05/16/23 04:27 05/16/23 04:27 Labs: Abnormal Lab Results - Last 24 Hours (Table) 05/16/23 05/16/23 Range/Units 04:27 04:27 WBC 13.4 H (3.8-10.6) k/uL Plt Count 83 L (150-450) k/uL Potassium 3.2 L (3.5-5.1) mmol/L Carbon Dioxide 33 H (22-30) mmol/L BUN 19 H (7-17) mg/dL Glucose 108 H (74-99) mg/dL Microbiology - Last 24 Hours (Table) 05/14/23 09:38 Blood Culture - Preliminary Blood
--- NOTE | 2023-05-16 12:02 | CA ---
Transthoracic Echo Report Name: Smitha Courtney Age: 67 Gender: F : 1955 Exam Date: 05/16/2023 09:43 Exam Location: [facility] Ht (in): 66 Wt (lb): 168 Ordering Physician: Christin Sullivan MD Attending/Referring Phys: Director Inbound Sales Kurtis Pandya Procedure CPT: Indications: pulmonary edema Cardiac Hx: Technical Quality: Fair Contrast 1: Total Dose (mL): Contrast 2: Total Dose (mL): MEASUREMENTS (Male / Female) Normal Values 2D ECHO RV Internal Dim ED PLAX 3.8 cm LVOT Diameter 2.2 cm Aortic Root Diameter 2.8 cm LA Systolic Diameter LX 2.8 cm 3.0 - 4.0 / 2.7 - 3.8 cm LV Diastolic Volume MOD BP 43.4 cm??? 67 - 155 / 56 - 104 cm??? LV Systolic Volume MOD BP 18.9 cm??? 22 - 58 / 19 - 49 cm??? LV Ejection Fraction MOD BP 56.4 % >= 55 % LV Cardiac Index MOD BP 1082.0 cm???/min???m??? LV Diastolic Volume MOD 4C 52.2 cm??? LV Systolic Volume MOD 4C 19.1 cm??? LV Ejection Fraction MOD 4C 63.3 % LV Cardiac Index MOD 4C 1461.7 cm???/min???m??? LV Diastolic Length 4C 6.9 cm LV Systolic Length 4C 5.9 cm LV Diastolic Volume MOD 2C 36.8 cm??? LV Systolic Volume MOD 2C 18.7 cm??? LV Ejection Fraction MOD 2C 49.0 % LV Cardiac Index MOD 2C 796.3 cm???/min???m??? LV Diastolic Length 2C 6.9 cm LV Systolic Length 2C 5.8 cm LA Volume 56.1 cm??? 18 - 58 / 22 - 52 cm??? LA Volume Index 29.5 cm???/m??? 16 - 28 cm???/m??? Ascending Aorta Diameter 2.8 cm DOPPLER AV Peak Velocity 125.2 cm/s AV Peak Gradient 6.3 mmHg LVOT Peak Velocity 113.5 cm/s LVOT Peak Gradient 5.2 mmHg LVOT Velocity Time Integral 23.6 cm LVOT Stroke Volume 88.6 cm??? LVOT Stroke Volume Index 47.7 ml/m??? LVOT Cardiac Index 3916.7 cm???/min???m??? AV Area Cont Eq pk 3.4 cm??? MV Peak Velocity 102.4 cm/s MV Peak Gradient 4.2 mmHg MV Mean Velocity 57.3 cm/s MV Mean Gradient 1.6 mmHg MV Velocity Time Integral 30.3 cm MR Peak Velocity 557.3 cm/s MR Peak Gradient 124.2 mmHg Mitral E Point Velocity 101.5 cm/s Mitral A Point Velocity 81.0 cm/s Mitral E to A Ratio 1.3 MV Deceleration Time 184.0 ms MV E' Velocity 7.0 cm/s Mitral E to MV E' Ratio 14.5 TR Peak Velocity 213.6 cm/s TR Peak Gradient 18.3 mmHg Right Ventricular Systolic Press 23.3 mmHg PV Peak Velocity 92.2 cm/s PV Peak Gradient 3.4 mmHg FINDINGS Left Ventricle Normal LV size and wall thickness. No obvious regional wall motion abnormalities. Left ventricular ejection fraction is estimated at 50-55 %. Right Ventricle Normal right ventricular size. RVSP= 23mmHg. Right Atrium Normal right atrial size. Left Atrium Normal left atrial size. Mitral Valve Mild thickening/calcification of the anterior mitral valve leaflet. Mild to moderate MR. Aortic Valve Trileaflet aortic valve. No aortic regurgitation. No aortic stenosis. Tricuspid Valve Structurally normal tricuspid valve. Trace TR. Pulmonic Valve Pulmonic valve not well visualized. No pulmonic regurgitation. Pericardium Not well visualized but grossly normal. Aorta Normal size aortic root and proximal ascending aorta. CONCLUSIONS Left ventricular ejection fraction is estimated at 50-55 %. No obvious regional wall motion abnormalities. No significant valvular dysfunction Mild to Moderate eccentric mitral regurgitation Normal RVSP No pericardial effusion Previewed by: Dr Iftikhar Hong (Electronically Signed) Final Date: 16 May 2023 12:01
[2023-05-16] MEDS: ONDANSETRON 4 MG/2 ML VIAL IVP PRN (12:08)
--- NOTE | 2023-05-16 12:56 | P.PN ---
Subjective Progress Note Date: 05/16/23 Principal diagnosis: Septic shock, urosepsis This patient is 67, history of fibromyalgia, history of seizure disorder and hyperlipidemia, presented to us following a left ureteral stent insertion for a left ureteral stone and secondary infection sepsis. The patient became septic from a 3 mm left-sided ureteral stone and she had symptoms of pyelonephritis. Patient was taken to the operating room. The patient underwent cystoscopy with a left stent insertion. The postop, the patient became hypotensive. She was given a total of 3 L of IV fluids with normal saline. Currently she is on Robert- Synephrine at 1.9 mcg/kg/m. Awake and alert and communicating. Her pain along the left flank is subsided. No hematuria. Urine output is improving. UA and urine culture still pending for now. The patient on IV Rocephin 2 g every 24 hours. No altered mentation. No nausea and emesis. No other new complaints otherwise for now. Today's evaluation of 05/13/2023, the patient is being seen for a follow-up. The patient is septic with a gram-negative bacillus or sitting from the urinary tract infection. She is post left ureteral stenting. Urine output is in order of 30-40 mL an hour. The patient is currently on a bicarb infusion. The patient is also on Robert-Synephrine and doses were reduced down to 0.3 mcg/kg/m. The patient otherwise is a bit lethargic. She did have some panic attacks yesterday and she was given Ativan. The Dilaudid was +14, 10.5 and a platelet count is down to 41. BUN is 41 with a creatinine of 1.2 and the sodium levels is 143. Blood cultures positive for gram-negative bacillus and the patient is currently on IV Zosyn. Reevaluated today on 05/14/20, patient remains in the ICU, on 4 L nasal cannula, patient has been off norepinephrine since midnight, still receiving bicarb drip, serum receiving antibiotics, blood cultures are positive for gram-negative bacilli, patient is being also evaluated by hematology for possible DIC. Libby t is status post stent placement by urology. Patient has mostly intermittent episodes of nausea, no pain, no shortness of breath. WBC count today is 14.2 hemoglobin is 10.4. Basic metabolic profile is normal except for low potassium of 3.4. Patient does have elevated d-dimer, slightly elevated fibrinogen, and elevated INR. Patient's initial presentation was a presentation of sepsis, septic shock, pyelonephritis, gram-negative bacteremia, remains on Zosyn, final cultures are pending. Patient was reevaluated today on 05/15/2023, we are seeing this patient in the ICU for E. coli bacteremia and pyelonephritis, sepsis and septic shock, patient can use to have significant amount of pain related to her fibromyalgia, unable to move much in bed, slight worsening of shortness of breath, worsening of the chest x-ray today, showing evidence of pulmonary edema right greater than left, and moderate right-sided pleural effusion with left-sided pleural effusion, clearly the patient is developing some component of pulmonary edema, could be cardiogenic or noncardiogenic nonetheless the patient will likely benefit from diuresis. I did recommend Lasix 40 mg IV push 1, cut down her IV fluids to KVO. W see count today is 12.6 hemoglobin 10.6 basic metabolic profile is normal renal profile is normal, hepatitis screen has been negative. And the patient tested negative for COVID-19 infection on admission. Patient had left sided stent insertion by urology on 05/12, her blood cultures have been positive for E. coli, patient denies any flank pain. She does have generalized pain related to fibromyalgia. Patient remains on Zosyn although the E. coli sensitive to Zosyn, but it seems to be were dealing with ESBL E. coli, and I'm recommending to start the patient on Merrem, and have infectious disease evaluate Patient was examined today on 05/16/2023, remains in the ICU, being treated for her sepsis, septic shock, E. coli/ESBL bacteremia, and pyelonephritis, yesterday I changed her antibiotics to Merrem and I consulted infectious disease who recommended that the patient remains on Merrem for now. And she will eventually need outpatient therapy, may need a midline or a PICC line for IV infusion on outpatient basis. In the last 2 days, the patient has been developing pulmonary edema-type of picture based on her chest x-ray, and the pulmonary edema could be cardiogenic or noncardiogenic, patient could have easily developed acute lung injury/noncardiogenic pulmonary edema. Echocardiogram showed LV function to be normal but she does have mild to moderate mitral regurgitation on the echocardiogram. Follow-up chest x-ray continues to show evidence of pulmonary edema, her BNP level is elevated, hence more inclined to consider this as an acute diastolic congestive heart failure although acute noncardiogenic pulmonary edema is not entirely ruled out yet. I am recommending that we continue Lasix on a daily basis, and continue to monitor for now. The meantime continue Carolina rem, may initiate a short course of steroids, if no improvement with diuretics WBC count today is 13.4 hemoglobin 12.2 basic metabolic profile is normal except for low potassium of 3.2, corrected already, and her BNP level is 9600. Patient is on 4 L nasal cannula, O2 saturations 92% Objective - Vital Signs Vital signs: Vital Signs Temp 99.2 F 05/16/23 12:00 Pulse 87 05/16/23 12:00 Resp 17 05/16/23 12:00 BP 145/85 05/16/23 12:00 Pulse Ox 92 L 05/16/23 12:00 FiO2 Intake & Output 05/15/23 05/16/23 05/16/23 18:59 06:59 18:59 Intake Total 1200 340 220 Output Total 4070 3125 1250 Balance -2870 -2785 -1030 Weight 76.5 kg Intake: IV 500 340 220 Meropenem 1 gm In Sodium 100 100 Chloride 0.9% 100 ml @ 33 .3 mls/hr IVPB Q8HR [facility] Rx#:[id number] Piperacillin-Tazobactam 3 100 .375 gm In Sodium Chloride 0.9% 100 ml @ 25 mls/hr IVPB Q8HR [facility] Rx# :[id number] Sodium Chloride 0.9% 1, 400 240 120 000 ml @ 20 mls/hr IV . Q24H [facility] Rx#:[id number] Intake, IV Titration 100 Amount Meropenem 1 gm In Sodium 100 Chloride 0.9% 100 ml @ 33 .3 mls/hr IVPB Q8HR [facility] Rx#:[id number] Oral 600 Output: Urine 4070 3125 1250 Other: Voiding Method Indwelling Catheter Indwelling Catheter - Exam Physical Exam: Revealed a 67-year-old female in no distress, on 4 L nasal cannula with O2 sats at 92% Head: Atraumatic, normocephalic. HEENT:[Neck is supple.] [No neck masses.] [No thyromegaly.] [No JVD.] Chest: [Crackles and rhonchi noted bilaterally. Cardiac Exam: [Normal S1 and S2, no S3 gallop, no murmur.] Abdomen: [Soft, nontender, no megaly, no rebound, no guarding, normal bowel sounds.] Extremities: [No clubbing, no edema, no cyanosis.] Neurological Exam: [No focal neurologic deficit.] Psychiatric: Depressed mood, affect and normal mental status examination. Skin: No rashes. - Labs CBC & Chem 7: 05/16/23 04:27 05/16/23 11:32 Labs: Abnormal Lab Results - Last 24 Hours (Table) 05/16/23 05/16/23 Range/Units 04:27 04:27 WBC 13.4 H (3.8-10.6) k/uL Plt Count 83 L (150-450) k/uL Potassium 3.2 L (3.5-5.1) mmol/L Carbon Dioxide 33 H (22-30) mmol/L BUN 19 H (7-17) mg/dL Glucose 108 H (74-99) mg/dL Microbiology - Last 24 Hours (Table) 05/14/23 09:38 Blood Culture - Preliminary Blood Assessment and Plan Assessment: Impression: Septic shock secondary to pyelonephritis and E. coli/ESBL bacteremia Left ureteral stone with complicated urinary tract infection/pyelonephritis status post cystoscopy and insertion of left ureteral stent Acute hypoxic respiratory failure secondary to above, improving, suspect ongoing cardiogenic or noncardiogenic pulmonary edema, however based on elevated BNP level of this is most likely cardiogenic and related to acute diastolic congestive heart failure with preserved LV function Bilateral pleural effusions, suspect pulmonary edema, could be cardiogenic or noncardiogenic, considering above, I would diurese the patient and continue to closely monitor her chest x-ray findings Acute lactic acidosis, resolved History of fibromyalgia History of seizures Acute thrombocytopenia, most likely secondary to sepsis. Recommendation: Continue Merrem Continue a trial of steroids if the patient does not improve with diuretics Lasix 40 mg IV push twice a day Continue to monitor electrolytes Continue Keppra for seizure disorder IV fluid to KVO Infectious disease has been consulted and recommended that we continue medical Continue to monitor in the ICU Continue GI and DVT prophylaxis We will continue to follow Time with Patient: Less than 30
--- NOTE | 2023-05-16 13:14 | P.PN ---
Subjective Underwent left-sided stent insertion 05/12 of blood cultures growing E coli Denies any flank pain Objective - Vital Signs Vital signs: Vital Signs Temp 99.2 F 05/16/23 12:00 Pulse 87 05/16/23 12:00 Resp 17 05/16/23 12:00 BP 145/85 05/16/23 12:00 Pulse Ox 92 L 05/16/23 12:00 FiO2 Intake & Output 05/15/23 05/16/23 05/16/23 18:59 06:59 18:59 Intake Total 1200 340 220 Output Total 4070 3125 1250 Balance -1080 -3885 -1030 Weight 76.5 kg Intake: IV 500 340 220 Meropenem 1 gm In Sodium 100 100 Chloride 0.9% 100 ml @ 33 .3 mls/hr IVPB Q8HR [facility] Rx#:[id number] Piperacillin-Tazobactam 3 100 .375 gm In Sodium Chloride 0.9% 100 ml @ 25 mls/hr IVPB Q8HR [facility] Rx# :[id number] Sodium Chloride 0.9% 1, 400 240 120 000 ml @ 20 mls/hr IV . Q24H [facility] Rx#:[id number] Intake, IV Titration 100 Amount Meropenem 1 gm In Sodium 100 Chloride 0.9% 100 ml @ 33 .3 mls/hr IVPB Q8HR [facility] Rx#:[id number] Oral 600 Output: Urine 4070 3125 1250 Other: Voiding Method Indwelling Catheter Indwelling Catheter - Constitutional General appearance: Present: no acute distress - Gastrointestinal General gastrointestinal: Present: soft. Absent: distended, tenderness - Labs CBC & Chem 7: 05/16/23 04:27 05/16/23 11:32 Labs: Abnormal Lab Results - Last 24 Hours (Table) 05/16/23 05/16/23 Range/Units 04:27 04:27 WBC 13.4 H (3.8-10.6) k/uL Plt Count 83 L (150-450) k/uL Potassium 3.2 L (3.5-5.1) mmol/L Carbon Dioxide 33 H (22-30) mmol/L BUN 19 H (7-17) mg/dL Glucose 108 H (74-99) mg/dL Microbiology - Last 24 Hours (Table) 05/14/23 09:38 Blood Culture - Preliminary Blood Assessment and Plan Assessment: 67-year-old female history of a 3 mm left-sided ureteral stone patient was septic secondary to her stone. Underwent left-sided stent insertion on 05/12. Patient is in the ICU hemodynamically stable. Blood cultures growing E.coli. -Follow up on blood and urine cultures -From Urology standpoint she is ok to transfer out of the ICU
[2023-05-16] MEDS: ENOXAPARIN 40 MG/0.4 ML SYRINGE SQ SCH (13:39)
[2023-05-16] MEDS ORDERED: POTASSIUM CHLORIDE ER 20 MEQ TAB.ER PO SCH (15:00)
[2023-05-16] MEDS: FUROSEMIDE 10 MG/ML 4 ML VIAL IV SCH (20:33)
--- NOTE | 2023-05-16 21:22 | P.PN ---
Subjective Progress Note Date: 05/16/23 Principal diagnosis: Thrombocytopenia In follow-up today patient is not reporting significant improvement in how she is feeling, states fibromyalgia is really bothering her. No reported fevers, N,V, bleeding. Objective - Vital Signs Vital signs: Vital Signs Temp 98.5 F 05/16/23 16:00 Pulse 88 05/16/23 19:00 Resp 18 05/16/23 19:00 BP 118/74 05/16/23 19:00 Pulse Ox 93 L 05/16/23 18:00 FiO2 Intake & Output 05/16/23 05/16/23 05/17/23 06:59 18:59 06:59 Intake Total 340 440 20 Output Total 3122024 50 Balance -8107 -4075 -30 Weight 76.5 kg 76.5 kg Intake: IV 340 440 20 Meropenem 1 gm In Sodium 100 200 Chloride 0.9% 100 ml @ 33 .3 mls/hr IVPB Q8HR [facility] Rx#:[id number] Sodium Chloride 0.9% 1, 240 240 20 000 ml @ 20 mls/hr IV . Q24H [facility] Rx#:[id number] Output: Urine 3122024 50 Other: Voiding Method Indwelling Catheter Indwelling Catheter # Bowel Movements 1 - Constitutional General appearance: Present: average body habitus, cooperative, no acute distress - EENT Eyes: Present: anicteric sclerae, EOMI ENT: Present: hearing grossly normal - Respiratory Respiratory: bilateral: CTA - Cardiovascular Rhythm: regular Heart sounds: normal: S1, S2 - Integumentary Integumentary: Present: normal - Neurologic Neurologic: Present: CNII-XII intact - Psychiatric Psychiatric: Present: A&O x's 3, appropriate affect, intact judgment & insight - Labs CBC & Chem 7: 05/16/23 04:27 05/16/23 11:32 Labs: Abnormal Lab Results - Last 24 Hours (Table) 05/16/23 05/16/23 Range/Units 04:27 04:27 WBC 13.4 H (3.8-10.6) k/uL Plt Count 83 L (150-450) k/uL Potassium 3.2 L (3.5-5.1) mmol/L Carbon Dioxide 33 H (22-30) mmol/L BUN 19 H (7-17) mg/dL Glucose 108 H (74-99) mg/dL Microbiology - Last 24 Hours (Table) 05/14/23 09:38 Blood Culture - Preliminary Blood Assessment and Plan (1) Thrombocytopenia Current Visit: Yes Status: Acute Priority: High Code(s): D69.6 - THROMBOCYTOPENIA, UNSPECIFIED SNOMED Code(s): 774248552 (2) Anemia Current Visit: Yes Status: Acute Priority: High Code(s): D64.9 - ANEMIA, UNSPECIFIED SNOMED Code(s): 071551951 Plan: Anemia and thrombocytopenia -New onset, this admit. Chart review show normal Hgb and plt counts in this medical record (most recent 09/23). -Anemia workup most consistent with anemia of inflammation. No supplementation needed at this time. Hemoglobin 12.2 today. -Thrombocytopenia workup negative. -Plt count cont to improve in small increments as pt is treated for sepsis. Plt 83,000 today. -[employer] [place] [employer] [facility] most likely that significant change in counts is 2/2 sepsis. Anticipate cont improvement in counts as acute condition is treated -Sepsis, blood cultures positive for Escherichia coli -DIC work up was neg -Anticoagulation/DVT prophylaxis has not been given this admit so, no need for HIT ab testing -SCDs for DVT prophylaxis can be initiated and continued as long as platelets remain above 50,000. This was discussed with Nursing today, will leave up to Critical Care team -Transfuse for a Hgb< 7 or plt <10,000 unless symptomatic Attests: I have seen and examined pt, performed H&P, developed impression and plan of care. Discussed with dictator. Agree with documentation, dictated as a scribe.
[2023-05-17] MEDS: MEROPENEM 1 GM in SODIUM CHLORIDE 0.9% 100 ML IVPB SCH ×3 (00:25→16:25)
[2023-05-17] MEDS: oxyCODONE-APAP 10-325MG 1 EACH TAB PO PRN ×3 (04:34→20:26)
[2023-05-17 05:39] LABS: Basophils # (A) 0.1 k/uL (0-0.2); Basophils % (A) 1 %; Eosinophils # (A) 0.1 k/uL (0-0.7); Eosinophils % (A) 1 %; HCT 43.6 % (34.0-46.0); Lymphocytes # (A) 1.7 k/uL (1.0-4.8); Lymphocytes % (A) 13 %; MCH 29.8 pg (25.0-35.0); MCHC 32.2 g/dL (31.0-37.0); MCV 92.5 fL (80.0-100.0); Mean Platelet Volume 9.2; Monocytes # (A) 0.5 k/uL (0-1.0); Monocytes % (A) 4 %; Neutrophils # (A) 10.5 k/uL (1.3-7.7); Neutrophils % (A) 79 %; Platelet Count 113 k/uL (150-450); RBC 4.72 m/uL (3.80-5.40); RDW 13.8 % (11.5-15.5); WBC 13.2 k/uL (3.8-10.6)
[2023-05-17 05:59] LABS: African American GFR (CKD) >90 (>60 ml/min/1.73 sqM); Anion Gap 11 mmol/L; Blood Urea Nitrogen 23 mg/dL (7-17); Calcium 9.2 mg/dL (8.4-10.2); Carbon Dioxide 32 mmol/L (22-30); Chloride 98 mmol/L (98-107); Glucose 93 mg/dL (74-99); Non-African American GFR(CKD) >90 (>60 ml/min/1.73 sqM); Sodium 141 mmol/L (137-145)
[2023-05-17] MEDS: SODIUM CHLORIDE 0.9% 1,000 ML IV SCH ×2 (06:37→10:06)
--- NOTE | 2023-05-17 08:22 | XR ---
EXAMINATION TYPE: XR chest 1V portable DATE OF EXAM: 05/17/2023 5:13 AM CLINICAL INDICATION:Female, 67 years old with history of CHF; H COMPARISON: Chest radiographs from 05/16/2023. TECHNIQUE: XR chest 1V portable Frontal view of the chest. FINDINGS: Lungs/Pleura: No evidence of focal consolidation or pneumothorax. Blunting of the costophrenic angles is present. Pulmonary vascularity: Pulmonary vascular congestion. Heart/mediastinum: Cardiomediastinal silhouette is enlarged and stable. Atherosclerotic calcificatio ns are seen in the aorta. Musculoskeletal: No acute osseous pathology. Right shoulder arthroplasty appears intact. Other findings: None IMPRESSION: Cardiomegaly, pulmonary vascular congestion and bilateral pleural effusions. Correlate with BNP for c ongestive heart failure.
[2023-05-17] MEDS: ENOXAPARIN 40 MG/0.4 ML SYRINGE SQ SCH (09:50)
[2023-05-17] MEDS: PANTOPRAZOLE 40 MG TABLET PO SCH (09:51)
[2023-05-17] MEDS: FUROSEMIDE 10 MG/ML 4 ML VIAL IV SCH ×2 (09:51→20:26)
[2023-05-17] MEDS: PRAVASTATIN SODIUM 20 MG TAB PO SCH (09:51)
[2023-05-17] MEDS: CHOLECALCIFEROL 125 MCG (5000 IU) TABLET PO SCH (09:51)
[2023-05-17] MEDS: levETIRAcetam 500 MG TAB PO SCH ×2 (09:52→20:26)
[2023-05-17] MEDS: FENOFIBRATE 54 MG TAB PO SCH (09:52)
--- NOTE | 2023-05-17 11:37 | P.PN ---
Subjective Underwent left-sided stent insertion 05/12 of blood cultures growing E coli Denies any flank pain Objective - Vital Signs Vital signs: Vital Signs Temp 99.8 F H 05/17/23 08:00 Pulse 93 05/17/23 10:00 Resp 21 05/17/23 10:00 BP 128/67 05/17/23 10:00 Pulse Ox 93 L 05/17/23 10:00 FiO2 Intake & Output 05/16/23 05/17/23 05/17/23 18:59 06:59 18:59 Intake Total 440 340 160 Output Total 2024 Balance -1585 -1640 -280 Weight 76.5 kg 73.2 kg Intake: IV 440 340 160 Meropenem 1 gm In Sodium 200 100 100 Chloride 0.9% 100 ml @ 33 .3 mls/hr IVPB Q8HR [facility] Rx#:[id number] Sodium Chloride 0.9% 1, 240 240 60 000 ml @ 20 mls/hr IV . Q24H [facility] Rx#:[id number] Output: Urine 2024 Other: Voiding Method Indwelling Catheter Indwelling Catheter # Bowel Movements 1 - Constitutional General appearance: Present: no acute distress - Gastrointestinal General gastrointestinal: Present: soft. Absent: distended, tenderness - Psychiatric Psychiatric: Present: A&O x's 3 - Labs CBC & Chem 7: 05/17/23 04:44 05/17/23 04:44 Labs: Abnormal Lab Results - Last 24 Hours (Table) 05/17/23 05/17/23 Range/Units 04:44 04:44 WBC 13.2 H (3.8-10.6) k/uL Plt Count 113 L (150-450) k/uL Neutrophils # 10.5 H (1.3-7.7) k/uL Carbon Dioxide 32 H (22-30) mmol/L BUN 23 H (7-17) mg/dL Microbiology - Last 24 Hours (Table) 05/14/23 09:38 Blood Culture - Preliminary Blood Assessment and Plan Assessment: 67-year-old female history of a 3 mm left-sided ureteral stone patient was septic secondary to her stone. Underwent left-sided stent insertion on 05/12. Patient is in the ICU hemodynamically stable. Blood cultures growing E.coli. -From Urology standpoint she is ok to transfer out of the ICU -No further intervention from urology standpoint, we will set up for left-sided ureteroscopy with laser once patient is discharged
--- NOTE | 2023-05-17 12:12 | P.PN ---
Subjective Progress Note Date: 05/17/23 Principal diagnosis: Septic shock, urosepsis This patient is 67, history of fibromyalgia, history of seizure disorder and hyperlipidemia, presented to us following a left ureteral stent insertion for a left ureteral stone and secondary infection sepsis. The patient became septic from a 3 mm left-sided ureteral stone and she had symptoms of pyelonephritis. Patient was taken to the operating room. The patient underwent cystoscopy with a left stent insertion. The postop, the patient became hypotensive. She was given a total of 3 L of IV fluids with normal saline. Currently she is on Robert- Synephrine at 1.9 mcg/kg/m. Awake and alert and communicating. Her pain along the left flank is subsided. No hematuria. Urine output is improving. UA and urine culture still pending for now. The patient on IV Rocephin 2 g every 24 hours. No altered mentation. No nausea and emesis. No other new complaints otherwise for now. Today's evaluation of 05/13/2023, the patient is being seen for a follow-up. The patient is septic with a gram-negative bacillus or sitting from the urinary tract infection. She is post left ureteral stenting. Urine output is in order of 30-40 mL an hour. The patient is currently on a bicarb infusion. The patient is also on Robert-Synephrine and doses were reduced down to 0.3 mcg/kg/m. The patient otherwise is a bit lethargic. She did have some panic attacks yesterday and she was given Ativan. The Dilaudid was +14, 10.5 and a platelet count is down to 41. BUN is 41 with a creatinine of 1.2 and the sodium levels is 143. Blood cultures positive for gram-negative bacillus and the patient is currently on IV Zosyn. Reevaluated today on 05/14/20, patient remains in the ICU, on 4 L nasal cannula, patient has been off norepinephrine since midnight, still receiving bicarb drip, serum receiving antibiotics, blood cultures are positive for gram-negative bacilli, patient is being also evaluated by hematology for possible DIC. Libby t is status post stent placement by urology. Patient has mostly intermittent episodes of nausea, no pain, no shortness of breath. WBC count today is 14.2 hemoglobin is 10.4. Basic metabolic profile is normal except for low potassium of 3.4. Patient does have elevated d-dimer, slightly elevated fibrinogen, and elevated INR. Patient's initial presentation was a presentation of sepsis, septic shock, pyelonephritis, gram-negative bacteremia, remains on Zosyn, final cultures are pending. Patient was reevaluated today on 05/15/2023, we are seeing this patient in the ICU for E. coli bacteremia and pyelonephritis, sepsis and septic shock, patient can use to have significant amount of pain related to her fibromyalgia, unable to move much in bed, slight worsening of shortness of breath, worsening of the chest x-ray today, showing evidence of pulmonary edema right greater than left, and moderate right-sided pleural effusion with left-sided pleural effusion, clearly the patient is developing some component of pulmonary edema, could be cardiogenic or noncardiogenic nonetheless the patient will likely benefit from diuresis. I did recommend Lasix 40 mg IV push 1, cut down her IV fluids to KVO. W see count today is 12.6 hemoglobin 10.6 basic metabolic profile is normal renal profile is normal, hepatitis screen has been negative. And the patient tested negative for COVID-19 infection on admission. Patient had left sided stent insertion by urology on 05/12, her blood cultures have been positive for E. coli, patient denies any flank pain. She does have generalized pain related to fibromyalgia. Patient remains on Zosyn although the E. coli sensitive to Zosyn, but it seems to be were dealing with ESBL E. coli, and I'm recommending to start the patient on Merrem, and have infectious disease evaluate Patient was examined today on 05/16/2023, remains in the ICU, being treated for her sepsis, septic shock, E. coli/ESBL bacteremia, and pyelonephritis, yesterday I changed her antibiotics to Merrem and I consulted infectious disease who recommended that the patient remains on Merrem for now. And she will eventually need outpatient therapy, may need a midline or a PICC line for IV infusion on outpatient basis. In the last 2 days, the patient has been developing pulmonary edema-type of picture based on her chest x-ray, and the pulmonary edema could be cardiogenic or noncardiogenic, patient could have easily developed acute lung injury/noncardiogenic pulmonary edema. Echocardiogram showed LV function to be normal but she does have mild to moderate mitral regurgitation on the echocardiogram. Follow-up chest x-ray continues to show evidence of pulmonary edema, her BNP level is elevated, hence more inclined to consider this as an acute diastolic congestive heart failure although acute noncardiogenic pulmonary edema is not entirely ruled out yet. I am recommending that we continue Lasix on a daily basis, and continue to monitor for now. The meantime continue Carolina rem, may initiate a short course of steroids, if no improvement with diuretics WBC count today is 13.4 hemoglobin 12.2 basic metabolic profile is normal except for low potassium of 3.2, corrected already, and her BNP level is 9600. Patient is on 4 L nasal cannula, O2 saturations 92% Patient was reevaluated today on , remains in the ICU, remains on Merrem, remains on Lasix 40 mg IV push twice a day, patient is feeling better today, breathing easier. She is now down to 2 L nasal cannula, and O2 saturation is 94%. Asked x-ray is showing slight improvement in her congestive heart failure. Again I am more inclined to consider this as a diastolic acute diastolic congestive heart failure rather than noncardiogenic pulmonary edema although both are in the differential. Nonetheless the patient is improving with diuretics, and we'll continue Lasix for now. WBC count today is 13.2 hemoglobin 14 basic metabolic profile is normal and renal profile is normal. BNP yesterday was 9600 Objective - Vital Signs Vital signs: Vital Signs Temp 99.8 F H 05/17/23 08:00 Pulse 93 05/17/23 10:00 Resp 21 05/17/23 10:00 BP 128/67 05/17/23 10:00 Pulse Ox 93 L 05/17/23 10:00 FiO2 Intake & Output 05/16/23 05/17/23 05/17/23 18:59 06:59 18:59 Intake Total 440 340 160 Output Total 2024 Balance -1585 -1640 -280 Weight 76.5 kg 73.2 kg Intake: IV 440 340 160 Meropenem 1 gm In Sodium 200 100 100 Chloride 0.9% 100 ml @ 33 .3 mls/hr IVPB Q8HR [facility] Rx#:[id number] Sodium Chloride 0.9% 1, 240 240 60 000 ml @ 20 mls/hr IV . Q24H MARISA Rx#:[id number] Output: Urine 2024 Other: Voiding Method Indwelling Catheter Indwelling Catheter Indwelling Catheter # Bowel Movements 1 - Exam Physical Exam: Revealed a 67-year-old female in no distress, on 2 L nasal valente yang with O2 sats at 94% Head: Atraumatic, normocephalic. HEENT:[Neck is supple.] [No neck masses.] [No thyromegaly.] [No JVD.] Chest: Diminished breath sounds at the bases no crackles or rhonchi or wheezes noted today. Cardiac Exam: [Normal S1 and S2, no S3 gallop, no murmur.] Abdomen: [Soft, nontender, no megaly, no rebound, no guarding, normal bowel sounds.] Extremities: [No clubbing, no edema, no cyanosis.] Neurological Exam: [No focal neurologic deficit.] Psychiatric: Depressed mood, affect and normal mental status examination. Skin: No rashes. - Labs CBC & Chem 7: 05/17/23 04:44 05/17/23 04:44 Labs: Abnormal Lab Results - Last 24 Hours (Table) 05/17/23 05/17/23 Range/Units 04:44 04:44 WBC 13.2 H (3.8-10.6) k/uL Plt Count 113 L (150-450) k/uL Neutrophils # 10.5 H (1.3-7.7) k/uL Carbon Dioxide 32 H (22-30) mmol/L BUN 23 H (7-17) mg/dL Microbiology - Last 24 Hours (Table) 05/14/23 09:38 Blood Culture - Preliminary Blood Assessment and Plan Assessment: Impression: Septic shock secondary to pyelonephritis and E. coli/ESBL bacteremia Left ureteral stone with complicated urinary tract infection/pyelonephritis status post cystoscopy and insertion of left ureteral stent Acute hypoxic respiratory failure secondary to above, and secondary to acute diastolic congestive heart failure although the possibility of acute lung injury/noncardiogenic pulmonary edema is in the differential Bilateral pleural effusions, suspect pulmonary edema, could be cardiogenic or noncardiogenic, improving with diuretics, and we'll continue the same Acute lactic acidosis, resolved History of fibromyalgia History of seizures Acute thrombocytopenia, most likely secondary to sepsis.Improving and platelets today 113. Recommendation: Continue Merrem continue Lasix 40 mg IV push twice a day Continue to monitor electrolytes Continue Keppra for seizure disorder Continue IV fluid at KVO transfer patient out of the ICU today to a monitor bed/selective Continue GI and DVT prophylaxis We will continue to follow Time with Patient: Less than 30
--- NOTE | 2023-05-17 14:46 | P.PN ---
Subjective Progress Note Date: 05/16/23 Principal diagnosis: Reason for follow-up is complicated UTI and ESBL E. coli bacteremia Patient is a 67-year-old female with a past medical history significant for hyperlipidemia seizure disorder fibromyalgia patient presented to the hospital with abdominal pain has been diagnosed with a complicated UTI with sepsis in this patient who is status post cystoscopy and left ureteral stent placement blood culture positive for ESBL E. coli On today's evaluation that is 05/16/2023 the patient continues to be afebrile, the patient is breathing comfortably on 4 L nasal cannula oxygen, the patient denies having any chest pain or cough and no sputum production, patient did have some nausea but no vomiting no diarrhea abdominal discomfort has decreased in intensity Patient did have a white count of 13.4, creatinine 0.72, blood culture repeat 05/14/2023 so far negative Objective - Vital Signs Vital signs: Vital Signs Temp 99.2 F 05/16/23 12:00 Pulse 87 05/16/23 12:00 Resp 17 05/16/23 12:00 BP 145/85 05/16/23 12:00 Pulse Ox 92 L 05/16/23 12:00 FiO2 Intake & Output 05/15/23 05/16/23 05/16/23 18:59 06:59 18:59 Intake Total 1200 340 220 Output Total 4070 3125 1250 Balance -6691 -4045 -1030 Weight 76.5 kg Intake: IV 500 340 220 Meropenem 1 gm In Sodium 100 100 Chloride 0.9% 100 ml @ 33 .3 mls/hr IVPB Q8HR [facility] Rx#:[id number] Piperacillin-Tazobactam 3 100 .375 gm In Sodium Chloride 0.9% 100 ml @ 25 mls/hr IVPB Q8HR [facility] Rx# :[id number] Sodium Chloride 0.9% 1, 400 240 120 000 ml @ 20 mls/hr IV . Q24H [facility]ISA Rx#:[id number] Intake, IV Titration 100 Amount Meropenem 1 gm In Sodium 100 Chloride 0.9% 100 ml @ 33 .3 mls/hr IVPB Q8HR [facility] Rx#:[id number] Oral 600 Output: Urine 4070 3125 1250 Other: Voiding Method Indwelling Catheter Indwelling Catheter - Exam GENERAL DESCRIPTION: An elderly female lying in bed in no distress RESPIRATORY SYSTEM: Unlabored breathing , decreased breath sound the bases HEART: S1 S2 regular rate and rhythm , ABDOMEN: Soft , no tenderness EXTREMITIES: No edema feet - Labs CBC & Chem 7: 05/17/23 04:44 05/17/23 04:44 Labs: Abnormal Lab Results - Last 24 Hours (Table) 05/16/23 05/16/23 Range/Units 04:27 04:27 WBC 13.4 H (3.8-10.6) k/uL Plt Count 83 L (150-450) k/uL Potassium 3.2 L (3.5-5.1) mmol/L Carbon Dioxide 33 H (22-30) mmol/L BUN 19 H (7-17) mg/dL Glucose 108 H (74-99) mg/dL Microbiology - Last 24 Hours (Table) 05/14/23 09:38 Blood Culture - Preliminary Blood Assessment and Plan (1) Complicated UTI (urinary tract infection) Current Visit: Yes Status: Acute Code(s): N39.0 - URINARY TRACT INFECTION, SITE NOT SPECIFIED SNOMED Code(s): 26294413 (2) Sepsis Current Visit: Yes Status: Acute Code(s): A41.9 - SEPSIS, UNSPECIFIED ORGANISM SNOMED Code(s): 08989501 (3) Infection due to ESBL-producing Escherichia coli Current Visit: Yes Status: Acute Code(s): A49.8 - OTHER BACTERIAL INFECTIONS OF UNSPECIFIED SITE; Z16.12 - EXTENDED SPECTRUM BETA LACTAMASE (ESBL) RESISTANCE SNOMED Code(s): 447734104 (4) Leukocytosis Current Visit: Yes Status: Acute Code(s): D72.829 - ELEVATED WHITE BLOOD CELL COUNT, UNSPECIFIED SNOMED Code(s): 869963107 (5) Allergy to sulfa drugs Current Visit: Yes Status: Acute Code(s): Z88.2 - ALLERGY STATUS TO SULFONAMIDES SNOMED Code(s): 63226096 Plan: 1patient presented to hospital with sepsis initially in this patient who did have a fever elevated white count source is complicated UTI in this patient who did have a left-sided hydronephrosis secondary to left ureteral stone requiring cystoscopy and ureteral stent placement. 2patient with ESBL E. coli bacteremia source is likely left-sided pyelonephritis. 3blood cultures has been repeated 05/14/2023 to document clearance of bacteremia 4-patient continue with meropenem 1 g every 8 hours Dictation was produced using [employer] software. please excuse any grammatical, word or spelling errors. Time with Patient: Less than 30
--- NOTE | 2023-05-17 14:47 | P.PN ---
Subjective Progress Note Date: 05/17/23 Principal diagnosis: Reason for follow-up is complicated UTI and ESBL E. coli bacteremia Patient is a 67-year-old female with a past medical history significant for hyperlipidemia seizure disorder fibromyalgia patient presented to the hospital with abdominal pain has been diagnosed with a complicated UTI with sepsis in this patient who is status post cystoscopy and left ureteral stent placement blood culture positive for ESBL E. coli On today's evaluation that is 05/17/2023, the patient did have a low-grade fever of 99.8 this morning, the patient is afebrile since then, the patient is breathing comfortably on 2 L nasal cannula oxygen, patient denies chest pain shortness of breath, or cough, patient Abdominal pain has decreased in intensity and denies any nausea/vomiting or diarrhea Patient did have a white count of 13.2, creatinine 0.68, blood culture repeat 05/14/2023 so far negative Objective - Vital Signs Vital signs: Vital Signs Temp 99.8 F H 05/17/23 08:00 Pulse 93 05/17/23 10:00 Resp 21 05/17/23 10:00 BP 128/67 05/17/23 10:00 Pulse Ox 93 L 05/17/23 10:00 FiO2 Intake & Output 05/16/23 05/17/23 05/17/23 18:59 06:59 18:59 Intake Total 440 340 160 Output Total 2024 Balance -1581 -1640 -280 Weight 76.5 kg 73.2 kg Intake: IV 440 340 160 Meropenem 1 gm In Sodium 200 100 100 Chloride 0.9% 100 ml @ 33 .3 mls/hr IVPB Q8HR [facility] Rx#:[id number] Sodium Chloride 0.9% 1, 240 240 60 000 ml @ 20 mls/hr IV . Q24H [facility] Rx#:[id number] Output: Urine 2024 Other: Voiding Method Indwelling Catheter Indwelling Catheter Indwelling Catheter # Bowel Movements 1 - Exam GENERAL DESCRIPTION: An elderly female lying in bed in no distress RESPIRATORY SYSTEM: Unlabored breathing , decreased breath sound the bases HEART: S1 S2 regular rate and rhythm , ABDOMEN: Soft , no tenderness EXTREMITIES: No edema feet - Labs CBC & Chem 7: 05/17/23 04:44 05/17/23 04:44 Labs: Abnormal Lab Results - Last 24 Hours (Table) 05/17/23 05/17/23 Range/Units 04:44 04:44 WBC 13.2 H (3.8-10.6) k/uL Plt Count 113 L (150-450) k/uL Neutrophils # 10.5 H (1.3-7.7) k/uL Carbon Dioxide 32 H (22-30) mmol/L BUN 23 H (7-17) mg/dL Microbiology - Last 24 Hours (Table) 05/14/23 09:38 Blood Culture - Preliminary Blood Assessment and Plan (1) Complicated UTI (urinary tract infection) Current Visit: Yes Status: Acute Code(s): N39.0 - URINARY TRACT INFECTION, SITE NOT SPECIFIED SNOMED Code(s): 80888504 (2) Infection due to ESBL-producing Escherichia coli Current Visit: Yes Status: Acute Code(s): A49.8 - OTHER BACTERIAL INFECTIONS OF UNSPECIFIED SITE; Z16.12 - EXTENDED SPECTRUM BETA LACTAMASE (ESBL) RESISTANCE SNOMED Code(s): 545163272 (3) Leukocytosis Current Visit: Yes Status: Acute Code(s): D72.829 - ELEVATED WHITE BLOOD CELL COUNT, UNSPECIFIED SNOMED Code(s): 383463414 Plan: 1patient presented to hospital with sepsis initially in this patient who did have a fever elevated white count source is complicated UTI in this patient who did have a left-sided hydronephrosis secondary to left ureteral stone requiring cystoscopy and ureteral stent placement. 2patient with ESBL E. coli bacteremia source is likely left-sided pyelonephritis. 3blood cultures has been repeated 05/14/2023 to document clearance of bacteremia 4-patient continue with meropenem 1 g every 8 hours patient will need midline once blood cultures are negative at 72 hour Dictation was produced using [employer] dictation software. please excuse any grammatical, word or spelling errors. Time with Patient: Less than 30
--- NOTE | 2023-05-17 15:15 | P.PN ---
Subjective Progress Note Date: 05/17/23 67 year old F with PMH of fibromyalgia and chronic pain with narcotic dependence, seizure disorder, HLD who presented to the ED for flank pain, fevers, chills. Severe sharp back/flank on the left side which did not improve with medication. Afebrile, BP 95/68, HR 96, 93% on 4 L nasal cannula. CBC Hg 11.2, Plt 49. BMP K 3.4, Cl 115, CO2 14, BUN of 33, Cr 1.26, albumin 2.6. Ca 7.9. LFT Total bilirubin 1.5, AST 49, ALT of 22. Lipase was 106, amylase was 39. Lactic acid is 1.3. Troponins 0.086. COVID negative. Patient was taken to the operating room where she underwent cystoscopy and left ureteral stent placement. Post operatively, patient required phenylephrine to maintain MAP > 65, therefore was transferred to ICU. Initially started on Rocephin, switched to Zosyn on 05/13. Blood cultures are positive for GNB. 05/14 Patient was seen and examined in the ICU. Sleeping but easily arousable. Answers questions appropriately then goes back to sleep. CBC WBC 14.2 Hg 10.4 Plt 46. BMP K 3.4, Cl 110, BUN 37, glu 102, Ca 7.6. D-Dimer > 34. INR 1.5. PT 15.7. BCx GNB. Antibiotics include Zosyn. Currently on D5W with sodium bicarb running at 100 cc/hr. Weaned off Phenylephrine for the time being. 05/15 Patient was seen and examined. Generalized pain from fibromyalgias. Requiring 4L NC to maintain O2 sat > 92%. CBC WBC 12.6 Hg 10.6 Plt 58. BMP Cl 112, bicarb 21, BUN 27, glu 67, Ca 7.9. Iron 9. Ferritin 671. B12 > 3600. Hep and HIV panel negative. Hematology consulted for possible DIC, workup negative, no heparin products until Plt > 50, transfuse if Hg < 7 or Plt < 10. BCx E. coli sensitive to Zosyn. D5W with sodium bicarb discontinued. 05/16 Patient was seen and examined. CXR done yesterday showed pulmonary edema with bilateral pleural effusion. Given 2 doses of Lasix 40 mg IV yesterday. Started on Lasix 40 mg IV BID. Diuresied 5.655L so far. CXR done today showed i mproved aeration compared to yesterday. She complains of chronic pain. Currently on 4L NC. CBC WBC 13.4 Plt 83. BMP K 32, bicarb 33, BUN 19, glu 108. ID consulted, Zosyn switched to Meropenem 05/15. Repeat BCx negative so far. 05/17 Patient was seen and examined. She reports no complaints. Appears more comfortable but still tired and lethargic. CXR done today shows improved pulmonary edema. Diuresing well with Lasix 40 mg IV BID, 3.225L over the past 24H. CBC WBC 13.2 Plt 113. BMP bicarb 33, BUN 23. Antibiotics include Meropenem. Repeat BCx negative so far. Echo shows EF 50-55%. PT and OT consulted to work with this patient. General: non toxic, no distress, appears at stated age Derm: warm, dry Head: atraumatic, normocephalic, symmetric Eyes: EOMI, no lid lag, anicteric sclera Cardiovascular: S1S2 reg, no murmur Lungs: Decreased BS to auscultation bilaterally , no accessory muscle use Ext: no gross muscle atrophy, no edema, no contractures Neuro: no focal neuro deficits Psych: Alert, oriented, sleepy L CVA tenderness Based on my assessment of this patient, this patient meets a high complexity level of care. Patient has an acute diagnosis of sepsis due to pyelonephritis that poses a threat to life or bodily function. Acute hypoxic respiratory failure due to pulmonary edema and bilateral pleural effusion: Likely volume overload. Concern for PE given elevated D-Dimer but less likely since improving with Lasix. Echocardiogram as above. Severe sepsis with pyelonephritis and gram negative bacteremia: Zosyn 3.375 g IV TID (D4) switched to Meropenem 1g IV TID (D3). Repeat BCx. Telemetry monitoring. Maintain MAP > 65. Nephrolithiasis: Status post cystoscopy and left ureteral stent placement. Urology on board. Prerenal azotemia: Resolving. Encourage hydration by mouth. Thrombocytopenia: Likely reactive. DIC workup negative per Hematology. Transfuse if Plt < 10. Iron deficiency anemia: Transfuse if Hg < 7. Elevated D-Dimer: Likely due to severe sepsis. Fibromyalgia Chronic pain with narcotic dependence: [place] 7.5 Q4 PRN for severe pain. Seizure disorder: Keppra 500 mg PO BID. Hyperlipidemia: Pravachol 20 mg PO QD. CODE STATUS: FULL CODE DVT Prophylaxis: Lovenox SQ GI Prophylaxis: Protonix PO Designated medical POA if patient is not able to make medical decisions for themselves: I have reviewed the following economic consultant notes: Urology, Hematology, Pulmonology note. I have reviewed the results of the following tests: CBC. BMP. Repeat BCx. I have ordered the following tests: CBC, BMP. I have discussed the care of this patient with the following independent h istorian: I have independently interpreted the following test below: CXR. I have discussed the management of this patient with the following physician: Objective - Vital Signs Vital signs: Vital Signs Temp 98.6 F 05/17/23 04:00 Pulse 93 05/17/23 07:00 Resp 13 05/17/23 07:00 BP 120/63 05/17/23 07:00 Pulse Ox 90 L 05/17/23 07:00 FiO2 Intake & Output 05/16/23 05/17/23 05/17/23 18:59 06:59 18:59 Intake Total 440 340 20 Output Total 2024 1979 130 Balance -1585 -1640 -110 Weight 76.5 kg 73.2 kg Intake: IV 440 340 20 Meropenem 1 gm In Sodium 200 100 Chloride 0.9% 100 ml @ 33 .3 mls/hr IVPB Q8HR [facility] Rx#:[id number] Sodium Chloride 0.9% 1, 240 240 20 000 ml @ 20 mls/hr IV . Q24H [facility] Rx#:[id number] Output: Urine 2024 1979 130 Other: Voiding Method Indwelling Catheter Indwelling Catheter # Bowel Movements 1 - Labs CBC & Chem 7: 05/17/23 04:44 05/17/23 04:44 Labs: Abnormal Lab Results - Last 24 Hours (Table) 05/17/23 05/17/23 Range/Units 04:44 04:44 WBC 13.2 H (3.8-10.6) k/uL Plt Count 113 L (150-450) k/uL Neutrophils # 10.5 H (1.3-7.7) k/uL Carbon Dioxide 32 H (22-30) mmol/L BUN 23 H (7-17) mg/dL Microbiology - Last 24 Hours (Table) 05/14/23 09:38 Blood Culture - Preliminary Blood
[2023-05-17] MEDS: ALPRAZolam 0.25 MG TAB PO PRN (22:55)
[2023-05-18] MEDS: MEROPENEM 1 GM in SODIUM CHLORIDE 0.9% 100 ML IVPB SCH ×4 (01:00→23:48)
[2023-05-18] MEDS: oxyCODONE-APAP 10-325MG 1 EACH TAB PO PRN ×5 (03:00→23:46)
[2023-05-18 04:43] LABS: HCT 37.9 % (34.0-46.0); HGB 12.3 gm/dL (11.4-16.0); MCH 29.2 pg (25.0-35.0); MCHC 32.4 g/dL (31.0-37.0); MCV 90.1 fL (80.0-100.0); RBC 4.21 m/uL (3.80-5.40); RDW 14.1 % (11.5-15.5); WBC 14.9 k/uL (3.8-10.6)
[2023-05-18 04:56] LABS: Platelet Count 173 k/uL (150-450)
[2023-05-18 04:59] LABS: African American GFR (CKD) >90 (>60 ml/min/1.73 sqM); Anion Gap 11 mmol/L; Blood Urea Nitrogen 28 mg/dL (7-17); Calcium 8.8 mg/dL (8.4-10.2); Carbon Dioxide 32 mmol/L (22-30); Chloride 94 mmol/L (98-107); Glucose 108 mg/dL (74-99); Non-African American GFR(CKD) >90 (>60 ml/min/1.73 sqM); Potassium 3.3 mmol/L (3.5-5.1); Sodium 137 mmol/L (137-145)
[2023-05-18] MEDS: levETIRAcetam 500 MG TAB PO SCH ×2 (07:48→20:01)
[2023-05-18] MEDS: POTASSIUM CHLORIDE ER 20 MEQ TAB.ER PO SCH ×2 (07:48→10:08)
[2023-05-18] MEDS: ENOXAPARIN 40 MG/0.4 ML SYRINGE SQ SCH (07:48)
[2023-05-18] MEDS: CHOLECALCIFEROL 125 MCG (5000 IU) TABLET PO SCH (07:48)
[2023-05-18] MEDS: PANTOPRAZOLE 40 MG TABLET PO SCH (07:48)
[2023-05-18] MEDS: FUROSEMIDE 10 MG/ML 4 ML VIAL IV SCH (07:54)
--- NOTE | 2023-05-18 08:28 | XR ---
EXAMINATION TYPE: XR chest 1V portable DATE OF EXAM: 05/18/2023 Comparison: 05/17/2023 Clinical History: 67-year-old female CHF Findings: Heart is borderline in size. Patchy interstitial changes right upper lung. Moderate bilateral pleural effusions persist. Background hyperinflation. Impression: COPD with ongoing moderate bilateral pleural effusions with adjacent atelectasis and/or consolidation . Similar mild interstitial changes right upper lung. Possible sequela of CHF.
[2023-05-18] MEDS: FENOFIBRATE 54 MG TAB PO SCH (10:09)
[2023-05-18] MEDS: PRAVASTATIN SODIUM 20 MG TAB PO SCH (10:09)
[2023-05-18] MEDS: HEPARIN SODIUM,PORCINE 5,000 UNIT/ML 1 ML VIAL SQ SCH (12:04)
--- NOTE | 2023-05-18 12:18 | P.PN ---
Subjective Progress Note Date: 05/18/23 67 year old F with PMH of fibromyalgia and chronic pain with narcotic dependence, seizure disorder, HLD who presented to the ED for flank pain, fevers, chills. Severe sharp back/flank on the left side which did not improve with medication. Afebrile, BP 95/68, HR 96, 93% on 4 L nasal cannula. CBC Hg 11.2, Plt 49. BMP K 3.4, Cl 115, CO2 14, BUN of 33, Cr 1.26, albumin 2.6. Ca 7.9. LFT Total bilirubin 1.5, AST 49, ALT of 22. Lipase was 106, amylase was 39. Lactic acid is 1.3. Troponins 0.086. COVID negative. Patient was taken to the operating room where she underwent cystoscopy and left ureteral stent placement. Post operatively, patient required phenylephrine to maintain MAP > 65, therefore was transferred to ICU. Initially started on Rocephin, switched to Zosyn on 05/13. Blood cultures + GNB. 05/14 Weaned off Phenylephrine. 05/15 Hematology consulted for possible DIC, workup negative, no heparin products until Plt > 50, transfuse if Hg < 7 or Plt < 10. BCx MDRO ESBL, Zosyn switched to Meropenem by ID. 05/16 CXR showed pulmonary edema with bilateral pleural effusion. Started on Lasix 40 mg IV BID. 05/17 Echo shows EF 50-55%. PT and OT recommends SNF but patient prefers to go home. 05/18 Patient was seen and examined. No acute events overnight. CBC WBC 14.9. B MP K 3.3, Cl 94, bicarb 32, BUN 28, glu 108. Saturating low 90s on 2L NC. CXR showing bilateral pleural effusion. Maintained on Lasix 40 mg IV BID. Negative 3.225L over the past 24H. Weight peak 88.4kg-70.9kg. Antibiotics include Merepenem 1g IV TID. Repeat BCx negative at 72H. ID recommends obtaining midline for ad terminal makeup operator IV antibiotics. Patient believed she will be able to manage this at home. General: non toxic, no distress, appears at stated age Derm: warm, dry Head: atraumatic, normocephalic, symmetric Eyes: EOMI, no lid lag, anicteric sclera Cardiovascular: S1S2 reg, no murmur Lungs: Decreased BS to auscultation bilaterally , no accessory muscle use Ext: no gross muscle atrophy, no edema, no contractures Neuro: no focal neuro deficits Psych: Alert, oriented Based on my assessment of this patient, this patient meets a high complexity level of care. Patient has an acute diagnosis of sepsis due to pyelonephritis that poses a threat to life or bodily function. Acute hypoxic respiratory failure due to pulmonary edema and bilateral pleural effusion: Likely volume overload. Concern for PE given elevated D-Dimer but less likely since improving with Lasix. Echocardiogram as above. Lasix 40 mg IV BID. Severe sepsis with pyelonephritis and gram negative bacteremia: Zosyn 3.375 g IV TID (D4) switched to Meropenem 1g IV TID (D4). Repeat BCx negative. Midline ordered. Telemetry monitoring. Maintain MAP > 65. ID on board. Nephrolithiasis: Status post cystoscopy and left ureteral stent placement. Urology on board. Prerenal azotemia: Due to forced diuresis. Hypochloremic alkalosis: Due to forced diuresis. Hypokalemia: Replace via protocol. Elevated D-Dimer: Likely due to severe sepsis. Fibromyalgia Chronic pain with narcotic dependence: [place] 10 Q4 PRN for severe pain. Seizure disorder: Keppra 500 mg PO BID. Hyperlipidemia: Pravachol 20 mg PO QD. Resolved: Thrombocytopenia (reactive), Anemia (dilutional) CODE STATUS: FULL CODE DVT Prophylaxis: Lovenox SQ GI Prophylaxis: Protonix PO Designated medical POA if patient is not able to make medical decisions for themselves: I have reviewed the following access consultant notes: Urology, Hematology, Pulmonology note. I have reviewed the results of the following tests: CBC. BMP. Repeat BCx. I have ordered the following tests: CBC, BMP. I have discussed the care of this patient with the following independent historian: I have independently interpreted the following test below: CXR. I have discussed the management of this patient with the following physician: This patient meets a high level of care for the following reasons: Patient requires IV lasix which requires intensive monitoring for renal toxicitiy. Objective - Vital Signs Vital signs: Vital Signs Temp 98.6 F 05/18/23 06:00 Pulse 87 05/18/23 06:00 Resp 18 05/18/23 06:00 BP 121/63 05/18/23 06:00 Pulse Ox 91 L 05/18/23 06:00 FiO2 Intake & Output 05/17/23 05/18/23 05/18/23 18:59 06:59 18:59 Intake Total 260 Output Total 1640 2400 Balance -1380 -2400 Weight 70.9 kg Intake: IV 260 Meropenem 1 gm In Sodium 200 Chloride 0.9% 100 ml @ 33 .3 mls/hr IVPB Q8HR [facility] Rx#:[id number] Sodium Chloride 0.9% 1, 60 000 ml @ 20 mls/hr IV . Q24H [facility] Rx#:[id number] Output: Urine 1640 2400 Other: Voiding Method Indwelling Catheter Indwelling Catheter - Labs CBC & Chem 7: 05/18/23 04:12 05/18/23 04:08 Labs: Abnormal Lab Results - Last 24 Hours (Table) 05/18/23 05/18/23 Range/Units 04:08 04:12 WBC 14.9 H (3.8-10.6) k/uL Potassium 3.3 L (3.5-5.1) mmol/L Chloride 94 L (98-107) mmol/L Carbon Dioxide 32 H (22-30) mmol/L BUN 28 H (7-17) mg/dL Glucose 108 H (74-99) mg/dL Microbiology - Last 24 Hours (Table) 05/14/23 09:38 Blood Culture - Preliminary Blood
--- NOTE | 2023-05-18 12:23 | P.PN ---
Subjective Progress Note Date: 05/18/23 Principal diagnosis: Reason for follow-up is complicated UTI and ESBL E. coli bacteremia Patient is a 67-year-old female with a past medical history significant for hyperlipidemia seizure disorder fibromyalgia patient presented to the hospital with abdominal pain has been diagnosed with a complicated UTI with sepsis in this patient who is status post cystoscopy and left ureteral stent placement blood culture positive for ESBL E. coli On today's evaluation that is the patient remains to be afebrile, patient is breathing comfortably currently on a 3LNC oxygen denies any chest pain or cough no nausea no vomiting and no diarrhea has been reported. Patient white count slightly up to 14.9 today, creatinine 0.67, blood culture from 05/14/2023 so far negative Objective - Vital Signs Vital signs: Vital Signs Temp 97.6 F 05/18/23 11:54 Pulse 93 05/18/23 11:54 Resp 18 05/18/23 11:54 BP 126/78 05/18/23 11:54 Pulse Ox 95 05/18/23 11:54 FiO2 Intake & Output 05/17/23 05/18/23 05/18/23 18:59 06:59 18:59 Intake Total 260 110 Output Total 1640 2400 750 Balance -1380 -2400 -640 Weight 70.9 kg 70.9 kg Intake: IV 260 110 Invasive Line 5 10 Meropenem 1 gm In Sodium 200 100 Chloride 0.9% 100 ml @ 33 .3 mls/hr IVPB Q8HR [facility] Rx#:[id number] Sodium Chloride 0.9% 1, 60 000 ml @ 20 mls/hr IV . Q24H [facility] Rx#:[id number] Output: Urine 1640 2400 750 Other: Voiding Method Indwelling Catheter Indwelling Catheter Indwelling Catheter - Exam GENERAL DESCRIPTION: An elderly female lying in bed in no distress RESPIRATORY SYSTEM: Unlabored breathing , decreased breath sound the bases HEART: S1 S2 regular rate and rhythm , ABDOMEN: Soft , no tenderness EXTREMITIES: No edema feet - Labs CBC & Chem 7: 05/18/23 04:12 05/18/23 04:08 Labs: Abnormal Lab Results - Last 24 Hours (Table) 05/18/23 05/18/23 Range/Units 04:08 04:12 WBC 14.9 H (3.8-10.6) k/uL Potassium 3.3 L (3.5-5.1) mmol/L Chloride 94 L (98-107) mmol/L Carbon Dioxide 32 H (22-30) mmol/L BUN 28 H (7-17) mg/dL Glucose 108 H (74-99) mg/dL Microbiology - Last 24 Hours (Table) 05/14/23 09:38 Blood Culture - Preliminary Blood Assessment and Plan (1) Complicated UTI (urinary tract infection) Current Visit: Yes Status: Acute Code(s): N39.0 - URINARY TRACT INFECTION, SITE NOT SPECIFIED SNOMED Code(s): 60305745 (2) Infection due to ESBL-producing Escherichia coli Current Visit: Yes Status: Acute Code(s): A49.8 - OTHER BACTERIAL INFECTIONS OF UNSPECIFIED SITE; Z16.12 - EXTENDED SPECTRUM BETA LACTAMASE (ESBL) RESISTANCE SNOMED Code(s): 047767059 (3) Leukocytosis Current Visit: Yes Status: Acute Code(s): D72.829 - ELEVATED WHITE BLOOD CELL COUNT, UNSPECIFIED SNOMED Code(s): 252610963 Plan: 1patient presented to hospital with sepsis initially in this patient who did have a fever elevated white count source is complicated UTI in this patient who did have a left-sided hydronephrosis secondary to left ureteral stone requiring cystoscopy and ureteral stent placement. 2patient with ESBL E. coli bacteremia source is likely left-sided pyelonephritis. 3patient blood cultures from 05/14/2023 so far negative indicating clearance of her bacteremia patient be able to get a midline placement. 4plan is for total of 2-week course of IV antibiotic which can be switched to Invanz on discharge for now continue the meropenem white count slightly elevated and need to be monitored closely Dictation was produced using [employer] dictation software. please excuse any grammatical, word or spelling errors. Time with Patient: Less than 30
--- NOTE | 2023-05-18 12:30 | P.PN ---
Subjective Underwent left-sided stent insertion 05/12 of blood cultures growing E coli Denies any flank pain Objective - Vital Signs Vital signs: Vital Signs Temp 97.6 F 05/18/23 11:54 Pulse 93 05/18/23 11:54 Resp 18 05/18/23 11:54 BP 126/78 05/18/23 11:54 Pulse Ox 95 05/18/23 11:54 FiO2 Intake & Output 05/17/23 05/18/23 05/18/23 18:59 06:59 18:59 Intake Total 260 110 Output Total 1640 2400 750 Balance -1380 -2400 -640 Weight 70.9 kg 70.9 kg Intake: IV 260 110 Invasive Line 5 10 Meropenem 1 gm In Sodium 200 100 Chloride 0.9% 100 ml @ 33 .3 mls/hr IVPB Q8HR [facility] Rx#:[id number] Sodium Chloride 0.9% 1, 60 000 ml @ 20 mls/hr IV . Q24H [facility] Rx#:[id number] Output: Urine 1640 2400 750 Other: Voiding Method Indwelling Catheter Indwelling Catheter Indwelling Catheter - Constitutional General appearance: Present: no acute distress - Gastrointestinal General gastrointestinal: Present: soft. Absent: tenderness - Psychiatric Psychiatric: Present: A&O x's 3 - Labs CBC & Chem 7: 05/18/23 04:12 05/18/23 04:08 Labs: Abnormal Lab Results - Last 24 Hours (Table) 05/18/23 05/18/23 Range/Units 04:08 04:12 WBC 14.9 H (3.8-10.6) k/uL Potassium 3.3 L (3.5-5.1) mmol/L Chloride 94 L (98-107) mmol/L Carbon Dioxide 32 H (22-30) mmol/L BUN 28 H (7-17) mg/dL Glucose 108 H (74-99) mg/dL Microbiology - Last 24 Hours (Table) 05/14/23 09:38 Blood Culture - Preliminary Blood Assessment and Plan Assessment: 67-year-old female history of a 3 mm left-sided ureteral stone patient was septic secondary to her stone. Underwent left-sided stent insertion on 05/12. Patient is in the ICU hemodynamically stable. Blood cultures growing E.coli. -No further intervention from urology standpoint, we will set up for left-sided ureteroscopy with laser once patient is discharged
--- NOTE | 2023-05-18 13:11 | P.PN ---
Subjective Progress Note Date: 05/18/23 Principal diagnosis: Septic shock, urosepsis This patient is 67, history of fibromyalgia, history of seizure disorder and hyperlipidemia, presented to us following a left ureteral stent insertion for a left ureteral stone and secondary infection sepsis. The patient became septic from a 3 mm left-sided ureteral stone and she had symptoms of pyelonephritis. Patient was taken to the operating room. The patient underwent cystoscopy with a left stent insertion. The postop, the patient became hypotensive. She was given a total of 3 L of IV fluids with normal saline. Currently she is on Robert- Synephrine at 1.9 mcg/kg/m. Awake and alert and communicating. Her pain along the left flank is subsided. No hematuria. Urine output is improving. UA and urine culture still pending for now. The patient on IV Rocephin 2 g every 24 hours. No altered mentation. No nausea and emesis. No other new complaints otherwise for now. Today's evaluation of 05/13/2023, the patient is being seen for a follow-up. The patient is septic with a gram-negative bacillus or sitting from the urinary tract infection. She is post left ureteral stenting. Urine output is in order of 30-40 mL an hour. The patient is currently on a bicarb infusion. The patient is also on Robert-Synephrine and doses were reduced down to 0.3 mcg/kg/m. The patient otherwise is a bit lethargic. She did have some panic attacks yesterday and she was given Ativan. The Dilaudid was +14, 10.5 and a platelet count is down to 41. BUN is 41 with a creatinine of 1.2 and the sodium levels is 143. Blood cultures positive for gram-negative bacillus and the patient is currently on IV Zosyn. Reevaluated today on 05/14/20, patient remains in the ICU, on 4 L nasal cannula, patient has been off norepinephrine since midnight, still receiving bicarb drip, serum receiving antibiotics, blood cultures are positive for gram-negative bacilli, patient is being also evaluated by hematology for possible DIC. Libby t is status post stent placement by urology. Patient has mostly intermittent episodes of nausea, no pain, no shortness of breath. WBC count today is 14.2 hemoglobin is 10.4. Basic metabolic profile is normal except for low potassium of 3.4. Patient does have elevated d-dimer, slightly elevated fibrinogen, and elevated INR. Patient's initial presentation was a presentation of sepsis, septic shock, pyelonephritis, gram-negative bacteremia, remains on Zosyn, final cultures are pending. Patient was reevaluated today on 05/15/2023, we are seeing this patient in the ICU for E. coli bacteremia and pyelonephritis, sepsis and septic shock, patient can use to have significant amount of pain related to her fibromyalgia, unable to move much in bed, slight worsening of shortness of breath, worsening of the chest x-ray today, showing evidence of pulmonary edema right greater than left, and moderate right-sided pleural effusion with left-sided pleural effusion, clearly the patient is developing some component of pulmonary edema, could be cardiogenic or noncardiogenic nonetheless the patient will likely benefit from diuresis. I did recommend Lasix 40 mg IV push 1, cut down her IV fluids to KVO. W see count today is 12.6 hemoglobin 10.6 basic metabolic profile is normal renal profile is normal, hepatitis screen has been negative. And the patient tested negative for COVID-19 infection on admission. Patient had left sided stent insertion by urology on 05/12, her blood cultures have been positive for E. coli, patient denies any flank pain. She does have generalized pain related to fibromyalgia. Patient remains on Zosyn although the E. coli sensitive to Zosyn, but it seems to be were dealing with ESBL E. coli, and I'm recommending to start the patient on Merrem, and have infectious disease evaluate Patient was examined today on 05/16/2023, remains in the ICU, being treated for her sepsis, septic shock, E. coli/ESBL bacteremia, and pyelonephritis, yesterday I changed her antibiotics to Merrem and I consulted infectious disease who recommended that the patient remains on Merrem for now. And she will eventually need outpatient therapy, may need a midline or a PICC line for IV infusion on outpatient basis. In the last 2 days, the patient has been developing pulmonary edema-type of picture based on her chest x-ray, and the pulmonary edema could be cardiogenic or noncardiogenic, patient could have easily developed acute lung injury/noncardiogenic pulmonary edema. Echocardiogram showed LV function to be normal but she does have mild to moderate mitral regurgitation on the echocardiogram. Follow-up chest x-ray continues to show evidence of pulmonary edema, her BNP level is elevated, hence more inclined to consider this as an acute diastolic congestive heart failure although acute noncardiogenic pulmonary edema is not entirely ruled out yet. I am recommending that we continue Lasix on a daily basis, and continue to monitor for now. The meantime continue [place] rem, may initiate a short course of steroids, if no improvement with diuretics WBC count today is 13.4 hemoglobin 12.2 basic metabolic profile is normal except for low potassium of 3.2, corrected already, and her BNP level is 9600. Patient is on 4 L nasal cannula, O2 saturations 92% Patient was reevaluated today on , remains in the ICU, remains on Merrem, remains on Lasix 40 mg IV push twice a day, patient is feeling better today, breathing easier. She is now down to 2 L nasal cannula, and O2 saturation is 94%. Asked x-ray is showing slight improvement in her congestive heart failure. Again I am more inclined to consider this as a diastolic acute diastolic congestive heart failure rather than noncardiogenic pulmonary edema although both are in the differential. Nonetheless the patient is improving with diuretics, and we'll continue Lasix for now. WBC count today is 13.2 hemoglobin 14 basic metabolic profile is normal and renal profile is normal. BNP yesterday was 9600 Noted today on 05/18/2023, patient remains in the ICU, she is actually an overflow, she would likely go to medical floor today. Continues to steadily improve. Achieving about 1000 mL on her incentive spirometry. Has been on Lasix all along and I cut it down to 40 mg daily remains on Merrem for her E. coli/ESBL activity anemia, being followed by infectious disease. Echocardiogram showed good LV function. Chest x-ray continues to show small bilateral pleural effusions and atelectasis patient is on 2 L nasal cannula with adequate O2 saturation in the 90s. Repeat blood cultures from 05/14 are negative so far. WBC count is 14.9 hemoglobin 12.3 basic metabolic profile is normal except low potassium of 3.3 renal profile is normal Objective - Vital Signs Vital signs: Vital Signs Temp 97.6 F 05/18/23 11:54 Pulse 93 05/18/23 11:54 Resp 18 05/18/23 11:54 BP 126/78 05/18/23 11:54 Pulse Ox 95 05/18/23 11:54 FiO2 Intake & Output 05/17/23 05/18/23 05/18/23 18:59 06:59 18:59 Intake Total 260 110 Output Total 1640 2400 750 Balance -1380 2400 -640 Weight 70.9 kg 70.9 kg Intake: IV 260 110 Invasive Line 5 10 Meropenem 1 gm In Sodium 200 100 Chloride 0.9% 100 ml @ 33 .3 mls/hr IVPB Q8HR [facility] Rx#:[id number] Sodium Chloride 0.9% 1, 60 000 ml @ 20 mls/hr IV . Q24H [facility] Rx#:[id number] Output: Urine 1640 2400 750 Other: Voiding Method Indwelling Catheter Indwelling Catheter Indwelling Catheter - Exam Physical Exam: Revealed a 67-year-old female in no distress, on 2 L nasal cannula, asymptomatic Head: Atraumatic, normocephalic. HEENT:[Neck is supple.] [No neck masses.] [No thyromegaly.] [No JVD.] Chest: Diminished breath sounds at the bases no crackles or rhonchi or wheezes noted today. Cardiac Exam: [Normal S1 and S2, no S3 gallop, no murmur.] Abdomen: [Soft, nontender, no megaly, no rebound, no guarding, normal bowel sounds.] Extremities: [No clubbing, no edema, no cyanosis.] Neurological Exam: [No focal neurologic deficit.] Psychiatric: Depressed mood, affect and normal mental status examination. Skin: No rashes. - Labs CBC & Chem 7: 05/18/23 04:12 05/18/23 04:08 Labs: Abnormal Lab Results - Last 24 Hours (Table) 05/18/23 05/18/23 Range/Units 04:08 04:12 WBC 14.9 H (3.8-10.6) k/uL Potassium 3.3 L (3.5-5.1) mmol/L Chloride 94 L (98-107) mmol/L Carbon Dioxide 32 H (22-30) mmol/L BUN 28 H (7-17) mg/dL Glucose 108 H (74-99) mg/dL Microbiology - Last 24 Hours (Table) 05/14/23 09:38 Blood Culture - Preliminary Blood Assessment and Plan Assessment: Impression: Septic shock secondary to pyelonephritis and E. coli/ESBL bacteremia Left ureteral stone with complicated urinary tract infection/pyelonephritis status post cystoscopy and insertion of left ureteral stent Acute hypoxic respiratory failure secondary to above, and secondary to acute diastolic congestive heart failure although the possibility of acute lung injury/noncardiogenic pulmonary edema is in the differential Bilateral pleural effusions, suspect pulmonary edema, could be cardiogenic or noncardiogenic, improving with diuretics, and we'll continue the same Acute lactic acidosis, resolved History of fibromyalgia, chronic pain syndrome History of seizures Acute thrombocytopenia, most likely secondary to sepsis.resolved platelets are 173 today. Recommendation: Reviewed chest x-ray and as noted above continues to have atelectasis and small pleural effusions Continue Merrem Abdominal Lasix to 40 mg once daily instead of twice daily Continue to monitor electrolytes Continue Keppra IV fluid at KVO Transfer patient out of the ICU to a monitor bed once a bed is available Continue GI and DVT prophylaxis We will continue to follow Time with Patient: Less than 30
[2023-05-18] MEDS: ALPRAZolam 0.25 MG TAB PO PRN (20:01)
[2023-05-19] MEDS: SODIUM CHLORIDE 0.9% 1,000 ML IV SCH (05:56)
[2023-05-19] MEDS: oxyCODONE-APAP 10-325MG 1 EACH TAB PO PRN ×4 (07:07→19:49)
[2023-05-19 07:38] LABS: HGB 12.4 gm/dL (11.4-16.0); MCH 29.5 pg (25.0-35.0); MCHC 32.6 g/dL (31.0-37.0); MCV 90.6 fL (80.0-100.0); Mean Platelet Volume 8.3; Platelet Count 237 k/uL (150-450); RDW 13.8 % (11.5-15.5); WBC 12.9 k/uL (3.8-10.6)
[2023-05-19 08:26] LABS: African American GFR (CKD) >90 (>60 ml/min/1.73 sqM); Anion Gap 10 mmol/L; Blood Urea Nitrogen 30 mg/dL (7-17); Carbon Dioxide 30 mmol/L (22-30); Chloride 98 mmol/L (98-107); Glucose 119 mg/dL (74-99); Non-African American GFR(CKD) >90 (>60 ml/min/1.73 sqM); Potassium 3.8 mmol/L (3.5-5.1); Sodium 138 mmol/L (137-145)
[2023-05-19] MEDS: MEROPENEM 1 GM in SODIUM CHLORIDE 0.9% 100 ML IVPB SCH ×3 (10:19→23:43)
[2023-05-19] MEDS: PANTOPRAZOLE 40 MG TABLET PO SCH (10:20)
[2023-05-19] MEDS: FUROSEMIDE 10 MG/ML 4 ML VIAL IV SCH (10:20)
[2023-05-19] MEDS: ENOXAPARIN 40 MG/0.4 ML SYRINGE SQ SCH (10:20)
[2023-05-19] MEDS: PRAVASTATIN SODIUM 20 MG TAB PO SCH (10:21)
[2023-05-19] MEDS: levETIRAcetam 500 MG TAB PO SCH ×2 (10:21→19:49)
[2023-05-19] MEDS: FENOFIBRATE 54 MG TAB PO SCH (10:21)
[2023-05-19] MEDS: CHOLECALCIFEROL 125 MCG (5000 IU) TABLET PO SCH (10:21)
--- NOTE | 2023-05-19 12:41 | P.PN ---
Subjective Progress Note Date: 05/19/23 Principal diagnosis: Septic shock, urosepsis This patient is 67, history of fibromyalgia, history of seizure disorder and hyperlipidemia, presented to us following a left ureteral stent insertion for a left ureteral stone and secondary infection sepsis. The patient became septic from a 3 mm left-sided ureteral stone and she had symptoms of pyelonephritis. Patient was taken to the operating room. The patient underwent cystoscopy with a left stent insertion. The postop, the patient became hypotensive. She was given a total of 3 L of IV fluids with normal saline. Currently she is on Robert- Synephrine at 1.9 mcg/kg/m. Awake and alert and communicating. Her pain along the left flank is subsided. No hematuria. Urine output is improving. UA and urine culture still pending for now. The patient on IV Rocephin 2 g every 24 hours. No altered mentation. No nausea and emesis. No other new complaints otherwise for now. Today's evaluation of 05/13/2023, the patient is being seen for a follow-up. The patient is septic with a gram-negative bacillus or sitting from the urinary tract infection. She is post left ureteral stenting. Urine output is in order of 30-40 mL an hour. The patient is currently on a bicarb infusion. The patient is also on Orbert-Synephrine and doses were reduced down to 0.3 mcg/kg/m. The patient otherwise is a bit lethargic. She did have some panic attacks yesterday and she was given Ativan. The Dilaudid was +14, 10.5 and a platelet count is down to 41. BUN is 41 with a creatinine of 1.2 and the sodium levels is 143. Blood cultures positive for gram-negative bacillus and the patient is currently on IV Zosyn. Reevaluated today on 05/14/20, patient remains in the ICU, on 4 L nasal cannula, patient has been off norepinephrine since midnight, still receiving bicarb drip, serum receiving antibiotics, blood cultures are positive for gram-negative bacilli, patient is being also evaluated by hematology for possible DIC. Libby t is status post stent placement by urology. Patient has mostly intermittent episodes of nausea, no pain, no shortness of breath. WBC count today is 14.2 hemoglobin is 10.4. Basic metabolic profile is normal except for low potassium of 3.4. Patient does have elevated d-dimer, slightly elevated fibrinogen, and elevated INR. Patient's initial presentation was a presentation of sepsis, septic shock, pyelonephritis, gram-negative bacteremia, remains on Zosyn, final cultures are pending. Patient was reevaluated today on 05/15/2023, we are seeing this patient in the ICU for E. coli bacteremia and pyelonephritis, sepsis and septic shock, patient can use to have significant amount of pain related to her fibromyalgia, unable to move much in bed, slight worsening of shortness of breath, worsening of the chest x-ray today, showing evidence of pulmonary edema right greater than left, and moderate right-sided pleural effusion with left-sided pleural effusion, clearly the patient is developing some component of pulmonary edema, could be cardiogenic or noncardiogenic nonetheless the patient will likely benefit from diuresis. I did recommend Lasix 40 mg IV push 1, cut down her IV fluids to KVO. W see count today is 12.6 hemoglobin 10.6 basic metabolic profile is normal renal profile is normal, hepatitis screen has been negative. And the patient tested negative for COVID-19 infection on admission. Patient had left sided stent insertion by urology on 05/12, her blood cultures have been positive for E. coli, patient denies any flank pain. She does have generalized pain related to fibromyalgia. Patient remains on Zosyn although the E. coli sensitive to Zosyn, but it seems to be were dealing with ESBL E. coli, and I'm recommending to start the patient on Merrem, and have infectious disease evaluate Patient was examined today on 05/16/2023, remains in the ICU, being treated for her sepsis, septic shock, E. coli/ESBL bacteremia, and pyelonephritis, yesterday I changed her antibiotics to Merrem and I consulted infectious disease who recommended that the patient remains on Merrem for now. And she will eventually need outpatient therapy, may need a midline or a PICC line for IV infusion on outpatient basis. In the last 2 days, the patient has been developing pulmonary edema-type of picture based on her chest x-ray, and the pulmonary edema could be cardiogenic or noncardiogenic, patient could have easily developed acute lung injury/noncardiogenic pulmonary edema. Echocardiogram showed LV function to be normal but she does have mild to moderate mitral regurgitation on the echocardiogram. Follow-up chest x-ray continues to show evidence of pulmonary edema, her BNP level is elevated, hence more inclined to consider this as an acute diastolic congestive heart failure although acute noncardiogenic pulmonary edema is not entirely ruled out yet. I am recommending that we continue Lasix on a daily basis, and continue to monitor for now. The meantime continue Carolina rem, may initiate a short course of steroids, if no improvement with diuretics WBC count today is 13.4 hemoglobin 12.2 basic metabolic profile is normal except for low potassium of 3.2, corrected already, and her BNP level is 9600. Patient is on 4 L nasal cannula, O2 saturations 92% Patient was reevaluated today on , remains in the ICU, remains on Merrem, remains on Lasix 40 mg IV push twice a day, patient is feeling better today, breathing easier. She is now down to 2 L nasal cannula, and O2 saturation is 94%. Asked x-ray is showing slight improvement in her congestive heart failure. Again I am more inclined to consider this as a diastolic acute diastolic congestive heart failure rather than noncardiogenic pulmonary edema although both are in the differential. Nonetheless the patient is improving with diuretics, and we'll continue Lasix for now. WBC count today is 13.2 hemoglobin 14 basic metabolic profile is normal and renal profile is normal. BNP yesterday was 9600 Noted today on 05/18/2023, patient remains in the ICU, she is actually an overflow, she would likely go to medical floor today. Continues to steadily improve. Achieving about 1000 mL on her incentive spirometry. Has been on Lasix all along and I cut it down to 40 mg daily remains on Merrem for her E. coli/ESBL activity anemia, being followed by infectious disease. Echocardiogram showed good LV function. Chest x-ray continues to show small bilateral pleural effusions and atelectasis patient is on 2 L nasal cannula with adequate O2 saturation in the 90s. Repeat blood cultures from 05/14 are negative so far. WBC count is 14.9 hemoglobin 12.3 basic metabolic profile is normal except low potassium of 3.3 renal profile is normal Patient was reevaluated today on 05/19/2023, patient continues to do well, she is now on the cardiac floor, does not seem to be in any distress, on 2 L nasal cannula with O2 sats of 94%, remains on antibiotics, remains on diuretics, remains on GI prophylaxis, and she has adequate control of her pain. Her last chest x-ray showed small bilateral pleural effusions and atelectasis, follow-up chest x-ray will be done tomorrow and I would likely decrease her Lasix or switch her to oral. W see count is 12.9 hemoglobin 12.4 basic metabolic profile is normal renal profile is normal electrolytes are normal Objective - Vital Signs Vital signs: Vital Signs Temp 98.0 F 05/19/23 11:40 Pulse 100 05/19/23 11:40 Resp 18 05/19/23 11:40 BP 122/80 05/19/23 11:40 Pulse Ox 94 L 05/19/23 11:40 FiO2 Intake & Output 05/18/23 05/19/23 05/19/23 18:59 06:59 18:59 Intake Total 460 20 450 Output Total 1000 300 450 Balance -540 -280 0 Weight 70.9 kg 67 kg Intake: IV 220 20 350 .9@20 240 Invasive Line 5 10 Invasive Line 6 10 20 10 Meropenem 1 gm In Sodium 200 100 Chloride 0.9% 100 ml @ 33 .3 mls/hr IVPB Q8HR [facility] Rx#:[id number] Oral 240 100 Output: Urine 1000 300 450 Other: Voiding Method Toilet External Catheter External Catheter # Voids 1 - Exam Physical Exam: Revealed a 67-year-old female in no distress, on 2 L nasal cannula, asymptomatic Head: Atraumatic, normocephalic. HEENT:[Neck is supple.] [No neck masses.] [No thyromegaly.] [No JVD.] Chest: Diminished breath sounds at the bases no crackles or rhonchi or wheezes noted today. Cardiac Exam: [Normal S1 and S2, no S3 gallop, no murmur.] Abdomen: [Soft, nontender, no megaly, no rebound, no guarding, normal bowel sounds.] Extremities: [No clubbing, no edema, no cyanosis.] Neurological Exam: [No focal neurologic deficit.] Psychiatric: Depressed mood, affect and normal mental status examination. Skin: No rashes. - Labs CBC & Chem 7: 05/19/23 06:34 05/19/23 06:34 Labs: Abnormal Lab Results - Last 24 Hours (Table) 05/19/23 05/19/23 Range/Units 06:34 06:34 WBC 12.9 H (3.8-10.6) k/uL BUN 30 H (7-17) mg/dL Glucose 119 H (74-99) mg/dL Assessment and Plan Assessment: Impression: Septic shock secondary to pyelonephritis and E. coli/ESBL bacteremia Left ureteral stone with complicated urinary tract infection/pyelonephritis s tatus post cystoscopy and insertion of left ureteral stent Acute hypoxic respiratory failure secondary to above, and secondary to acute diastolic congestive heart failure although the possibility of acute lung injury/noncardiogenic pulmonary edema is in the differential Bilateral pleural effusions, suspect pulmonary edema, could be cardiogenic or noncardiogenic, improving with diuretics, and we'll continue the same Acute lactic acidosis, resolved History of fibromyalgia, chronic pain syndrome History of seizures Acute thrombocytopenia, most likely secondary to sepsis.resolved platelets are 1 73 today. Recommendation: Continue Merrem Abdominal Lasix P chest x-ray in a.m. Continue to monitor electrolytes Continue Keppra IV fluid at KVO Continue GI and DVT prophylaxis We will continue to follow Time with Patient: Less than 30
--- NOTE | 2023-05-19 17:19 | P.PN ---
Subjective Progress Note Date: 05/19/23 Hospital course: Patient is a very pleasant 67-year-old female with a past medical history of fibromyalgia, chronic pain, narcotic dependence, seizure disorder, and hyperlipidemia. She presented to the emergency department on 05/12/23 via transfer from [facility] secondary to obstructive ureteral stone after presenting there with complaints of fever, flank pain, and chills. She was transferred to our facility and admitted under urology where patient underwent urgent cystoscopy with left stent insertion on 05/12/23 and later transferred to the ICU as patient required phenylephrine drip during postoperative period to maintain a map greater than 65. Blood culture resulting positive for ESBL, patient was started on meropenem and consult was placed to infectious disease. Hematology was consulted secondary to thrombocytopenia. On 05/16/23 patient was found to have increasing oxygenation needs and chest x-ray showed pulmonary edema with bilateral pleural effusions and patient was started on Lasix 40 mg IV twice daily. Echocardiogram then completed showing a preserved EF of 50-55%. Physical exam: Vital signs reviewed and stable. General: Nontoxic, no distress and appears stated age. Derm: Skin warm and dry, normal coloration for ethnicity. Head: Atraumatic, normocephalic and symmetric. Eyes: EOMs intact, no lid lag, and anicteric sclera Mouth: no lip lesions, mucus membranes moist Cardiovascular: regular rate and rhythm with normal S1S2, systolic murmur, positive posterior tibial pulses bilaterally, and cap refill < 2 seconds. Lungs: Respirations even, regular, and unlabored on room air. Lungs CTA bilaterally, no rhonchi, no rales, no wheezing, and no accessory muscle usage. Abdominal: soft, nontender to palpation, no guarding, no appreciable organomegaly Ext: ROM intact. No gross muscle atrophy, no edema, no contractures Neuro: Speech clear, face symmetrical and CN II-XII grossly intact with no noted focal neuro deficits Psych: Alert and oriented to person, place, time, and situation. Appropriate and pleasant affect. Assessment and Plan of Care: ESBL bacteremia Acute pyelonephritis Severe sepsis secondary to above Obstructive nephrolithiasis, status post cystoscopy and left ureteral stent placement on 05/12/23 -Patient to continue with meropenem 1 g every 8 hours. -Urology following, reviewed documentation in chart -Infectious disease following, stating patient will require IV Invanz upon discharge. Acute hypoxic respiratory failure secondary to pulmonary edema and bilateral pleural effusions, likely fluid volume overload from diastolic heart failure exacerbation Prerenal azotemia, secondary to IV diuresis Hypochloremic alkalosis, secondary to IV diuresis. Resolved Hypokalemia, Resolved -Pulmonology following, reviewed documentation in chart, decreased Lasix to 40 mg IVP daily. -Patient to remain on telemetry monitoring. -Close monitoring of I's and O's. Patient had a documented 1300 mL of output over the past 24 hours. -Continued close monitoring of electrolytes while diuresing. Thrombocytopenia. Unclear etiology possibly reactive secondary to sepsis. Resolved. Normocytic anemia, resolved. Elevated d-dimer, > 34.00. Unclear possibly reactive secondary to severe sepsis. -Hematology following. Reviewed documentation in chart. Hematology stating anemia workup consistent with anemia of inflammation stating no need for supplementation or further workup at this time. -CBC showing resolution of normocytic anemia and thrombocytopenia with hemoglobin of 12.4 and platelet count of 237 this morning. Data and imaging reviewed: -Chest x-ray completed 05/18/23 revealing COPD with ongoing moderate bilateral pleural effusions with adjacent atelectasis and/or consolidation similar mild interstitial changes in the right upper lung, possible sequela for CHF. -Vital signs reviewed. Blood pressure 120/74, heart rate 90, respiratory rate 18, temp 98.0F, SpO2 of 94% on room air. -Morning labs reviewed. CBC showing mild leukocytosis with WBC count of 12.9 otherwise normal findings with hemoglobin of 12.4 and platelet count of 237. BMP showing persistent prerenal azotemia with BUN of 30. Thank you for allowing us to participate in the care of this pleasant patient. Do not hesitate to contact us with questions. Someone can be reached from the [facility] hospitalist group all hours of the day at [phone] or via [employer]. Patient was seen independently by Nurse Pracitioner. This document was prepared using [employer] dictation software. Please allow for errors in clinic clerk, while rare they do occur. Wilmar Jhaveri NP rendered care for this patient independently, reviewed the findings and plan as documented in the note above. I did not physically speak with or examine the patient on this date. Objective - Vital Signs Vital signs: Vital Signs Temp 97.7 F 05/19/23 04:00 Pulse 81 05/19/23 04:00 Resp 18 05/19/23 04:00 BP 123/78 05/19/23 04:00 Pulse Ox 94 L 05/19/23 07:29 FiO2 Intake & Output 05/18/23 05/19/23 05/19/23 18:59 06:59 18:59 Intake Total 460 20 Output Total 1000 300 Balance -540 -280 Weight 70.9 kg 67 kg Intake: IV 220 20 Invasive Line 5 10 Invasive Line 6 10 20 Meropenem 1 gm In Sodium 200 Chloride 0.9% 100 ml @ 33 .3 mls/hr IVPB Q8HR [facility] Rx#:[id number] Oral 240 Output: Urine 1000 300 Other: Voiding Method Toilet External Catheter # Voids 1 - Labs CBC & Chem 7: 05/21/23 06:39 05/21/23 06:39 Labs: Abnormal Lab Results - Last 24 Hours (Table) 05/19/23 05/19/23 Range/Units 06:34 06:34 WBC 12.9 H (3.8-10.6) k/uL BUN 30 H (7-17) mg/dL Glucose 119 H (74-99) mg/dL
[2023-05-19] MEDS: ALPRAZolam 0.25 MG TAB PO PRN (19:49)
[2023-05-20] MEDS: oxyCODONE-APAP 10-325MG 1 EACH TAB PO PRN ×5 (01:35→19:48)
[2023-05-20] MEDS: SODIUM CHLORIDE 0.9% 1,000 ML IV SCH (01:35)
--- NOTE | 2023-05-20 08:09 | XR ---
EXAMINATION TYPE: XR chest 1V portable DATE OF EXAM: 05/20/2023 6:41 AM CLINICAL INDICATION:Female, 67 years old with history of CHF; COMPARISON: Chest radiographs from 05/18/2023 TECHNIQUE: XR chest 1V portable Frontal view of the chest. FINDINGS: Lungs/Pleura: No evidence of focal consolidation or pneumothorax. Blunting of the costophrenic angles is present. Pulmonary vascularity: Unremarkable. Heart/mediastinum: Cardiomediastinal silhouette is unremarkable. Musculoskeletal: No acute osseous pathology. IMPRESSION: Improving mild pulmonary vascular congestion. Trace bilateral pleural effusions.
[2023-05-20] MEDS: PRAVASTATIN SODIUM 20 MG TAB PO SCH (09:08)
[2023-05-20] MEDS: CHOLECALCIFEROL 125 MCG (5000 IU) TABLET PO SCH (09:08)
[2023-05-20] MEDS: MEROPENEM 1 GM in SODIUM CHLORIDE 0.9% 100 ML IVPB SCH ×3 (09:08→23:50)
[2023-05-20] MEDS: FUROSEMIDE 10 MG/ML 4 ML VIAL IV SCH (09:08)
[2023-05-20] MEDS: FENOFIBRATE 54 MG TAB PO SCH (09:08)
[2023-05-20] MEDS: levETIRAcetam 500 MG TAB PO SCH ×2 (09:08→19:47)
[2023-05-20] MEDS: PANTOPRAZOLE 40 MG TABLET PO SCH (09:08)
[2023-05-20] MEDS: ENOXAPARIN 40 MG/0.4 ML SYRINGE SQ SCH (09:08)
--- NOTE | 2023-05-20 12:15 | P.PN ---
Subjective Underwent left-sided stent insertion 05/12 of blood cultures growing E coli Denies any flank pain, Objective - Vital Signs Vital signs: Vital Signs Temp 98.1 F 05/20/23 11:35 Pulse 85 05/20/23 11:35 Resp 16 05/20/23 11:35 BP 109/73 05/20/23 11:35 Pulse Ox 96 05/20/23 11:35 FiO2 Intake & Output 05/19/23 05/20/23 05/20/23 18:59 06:59 18:59 Intake Total 558 440 Output Total 1100 1200 Balance -542 -760 Weight 52 kg Intake: IV 340 440 .9@20 240 240 Meropenem 1 gm In Sodium 100 200 Chloride 0.9% 100 ml @ 33 .3 mls/hr IVPB Q8HR [facility] Rx#:[id number] Oral 218 Output: Urine 1100 1200 Other: Voiding Method External Catheter External Catheter External Catheter # Voids 2 - Constitutional General appearance: Present: no acute distress - Gastrointestinal General gastrointestinal: Present: soft. Absent: distended, tenderness - Psychiatric Psychiatric: Present: A&O x's 3 - Labs CBC & Chem 7: 05/19/23 06:34 05/19/23 06:34 Labs: Microbiology - Last 24 Hours (Table) 05/14/23 09:38 Blood Culture - Final Blood Assessment and Plan Assessment: 67-year-old female history of a 3 mm left-sided ureteral stone patient was septic secondary to her stone. Underwent left-sided stent insertion on 05/12. Patient is in the ICU hemodynamically stable. Blood cultures growing E.coli. -No further intervention from urology standpoint, we will set up for left-sided ureteroscopy with laser once patient is discharged
--- NOTE | 2023-05-20 12:42 | P.PN ---
Subjective Progress Note Date: 05/20/23 Principal diagnosis: Septic shock, urosepsis This patient is 67, history of fibromyalgia, history of seizure disorder and hyperlipidemia, presented to us following a left ureteral stent insertion for a left ureteral stone and secondary infection sepsis. The patient became septic from a 3 mm left-sided ureteral stone and she had symptoms of pyelonephritis. Patient was taken to the operating room. The patient underwent cystoscopy with a left stent insertion. The postop, the patient became hypotensive. She was given a total of 3 L of IV fluids with normal saline. Currently she is on Robert- Synephrine at 1.9 mcg/kg/m. Awake and alert and communicating. Her pain along the left flank is subsided. No hematuria. Urine output is improving. UA and urine culture still pending for now. The patient on IV Rocephin 2 g every 24 hours. No altered mentation. No nausea and emesis. No other new complaints otherwise for now. Today's evaluation of 05/13/2023, the patient is being seen for a follow-up. The patient is septic with a gram-negative bacillus or sitting from the urinary tract infection. She is post left ureteral stenting. Urine output is in order of 30-40 mL an hour. The patient is currently on a bicarb infusion. The patient is also on Robert-Synephrine and doses were reduced down to 0.3 mcg/kg/m. The patient otherwise is a bit lethargic. She did have some panic attacks yesterday and she was given Ativan. The Dilaudid was +14, 10.5 and a platelet count is down to 41. BUN is 41 with a creatinine of 1.2 and the sodium levels is 143. Blood cultures positive for gram-negative bacillus and the patient is currently on IV Zosyn. Reevaluated today on 05/14/20, patient remains in the ICU, on 4 L nasal cannula, patient has been off norepinephrine since midnight, still receiving bicarb drip, serum receiving antibiotics, blood cultures are positive for gram-negative bacilli, patient is being also evaluated by hematology for possible DIC. Libby t is status post stent placement by urology. Patient has mostly intermittent episodes of nausea, no pain, no shortness of breath. WBC count today is 14.2 hemoglobin is 10.4. Basic metabolic profile is normal except for low potassium of 3.4. Patient does have elevated d-dimer, slightly elevated fibrinogen, and elevated INR. Patient's initial presentation was a presentation of sepsis, septic shock, pyelonephritis, gram-negative bacteremia, remains on Zosyn, final cultures are pending. Patient was reevaluated today on 05/15/2023, we are seeing this patient in the ICU for E. coli bacteremia and pyelonephritis, sepsis and septic shock, patient can use to have significant amount of pain related to her fibromyalgia, unable to move much in bed, slight worsening of shortness of breath, worsening of the chest x-ray today, showing evidence of pulmonary edema right greater than left, and moderate right-sided pleural effusion with left-sided pleural effusion, clearly the patient is developing some component of pulmonary edema, could be cardiogenic or noncardiogenic nonetheless the patient will likely benefit from diuresis. I did recommend Lasix 40 mg IV push 1, cut down her IV fluids to KVO. W see count today is 12.6 hemoglobin 10.6 basic metabolic profile is normal renal profile is normal, hepatitis screen has been negative. And the patient tested negative for COVID-19 infection on admission. Patient had left sided stent insertion by urology on 05/12, her blood cultures have been positive for E. coli, patient denies any flank pain. She does have generalized pain related to fibromyalgia. Patient remains on Zosyn although the E. coli sensitive to Zosyn, but it seems to be were dealing with ESBL E. coli, and I'm recommending to start the patient on Merrem, and have infectious disease evaluate Patient was examined today on 05/16/2023, remains in the ICU, being treated for her sepsis, septic shock, E. coli/ESBL bacteremia, and pyelonephritis, yesterday I changed her antibiotics to Merrem and I consulted infectious disease who recommended that the patient remains on Merrem for now. And she will eventually need outpatient therapy, may need a midline or a PICC line for IV infusion on outpatient basis. In the last 2 days, the patient has been developing pulmonary edema-type of picture based on her chest x-ray, and the pulmonary edema could be cardiogenic or noncardiogenic, patient could have easily developed acute lung injury/noncardiogenic pulmonary edema. Echocardiogram showed LV function to be normal but she does have mild to moderate mitral regurgitation on the echocardiogram. Follow-up chest x-ray continues to show evidence of pulmonary edema, her BNP level is elevated, hence more inclined to consider this as an acute diastolic congestive heart failure although acute noncardiogenic pulmonary edema is not entirely ruled out yet. I am recommending that we continue Lasix on a daily basis, and continue to monitor for now. The meantime continue Carolina rem, may initiate a short course of steroids, if no improvement with diuretics WBC count today is 13.4 hemoglobin 12.2 basic metabolic profile is normal except for low potassium of 3.2, corrected already, and her BNP level is 9600. Patient is on 4 L nasal cannula, O2 saturations 92% Patient was reevaluated today on , remains in the ICU, remains on Merrem, remains on Lasix 40 mg IV push twice a day, patient is feeling better today, breathing easier. She is now down to 2 L nasal cannula, and O2 saturation is 94%. Asked x-ray is showing slight improvement in her congestive heart failure. Again I am more inclined to consider this as a diastolic acute diastolic congestive heart failure rather than noncardiogenic pulmonary edema although both are in the differential. Nonetheless the patient is improving with diuretics, and we'll continue Lasix for now. WBC count today is 13.2 hemoglobin 14 basic metabolic profile is normal and renal profile is normal. BNP yesterday was 9600 Noted today on 05/18/2023, patient remains in the ICU, she is actually an overflow, she would likely go to medical floor today. Continues to steadily improve. Achieving about 1000 mL on her incentive spirometry. Has been on Lasix all along and I cut it down to 40 mg daily remains on Merrem for her E. coli/ESBL activity anemia, being followed by infectious disease. Echocardiogram showed good LV function. Chest x-ray continues to show small bilateral pleural effusions and atelectasis patient is on 2 L nasal cannula with adequate O2 saturation in the 90s. Repeat blood cultures from 05/14 are negative so far. WBC count is 14.9 hemoglobin 12.3 basic metabolic profile is normal except low potassium of 3.3 renal profile is normal Patient was reevaluated today on 05/19/2023, patient continues to do well, she is now on the cardiac floor, does not seem to be in any distress, on 2 L nasal cannula with O2 sats of 94%, remains on antibiotics, remains on diuretics, remains on GI prophylaxis, and she has adequate control of her pain. Her last chest x-ray showed small bilateral pleural effusions and atelectasis, follow-up chest x-ray will be done tomorrow and I would likely decrease her Lasix or switch her to oral. W see count is 12.9 hemoglobin 12.4 basic metabolic profile is normal renal profile is normal electrolytes are normal Reevaluated today on 05/20/2023, patient is doing great, much better, chest x- ray is showing significant improvement in her bilateral pleural effusions and pulmonary edema again it is hard to say whether this was cardiogenic or noncardiogenic pulmonary edema. Nonetheless the patient improved with diuretics, remains on antibiotics for her bacteremia/ESBL E. coli. Primary source is pyelonephritis. Patient denies any shortness of breath cough or wheezing, she is afebrile, hemodynamically stable, WBC count is 12.9 hemoglobin 12.4 basic metabolic profile is normal renal profile is normal Objective - Vital Signs Vital signs: Vital Signs Temp 98.1 F 05/20/23 11:35 Pulse 85 05/20/23 11:35 Resp 16 05/20/23 11:35 BP 109/73 05/20/23 11:35 Pulse Ox 96 05/20/23 11:35 FiO2 Intake & Output 05/19/23 05/20/23 05/20/23 18:59 06:59 18:59 Intake Total 558 440 Output Total 1100 1200 Balance -542 -760 Weight 52 kg Intake: IV 340 440 .9@20 240 240 Meropenem 1 gm In Sodium 100 200 Chloride 0.9% 100 ml @ 33 .3 mls/hr IVPB Q8HR [facility] Rx#:[id number] Oral 218 Output: Urine 1100 1200 Other: Voiding Method External Catheter External Catheter External Catheter # Voids 2 - Exam Physical Exam: Revealed a 67-year-old female in no distress, on 2 L nasal cannula, asymptomatic, O2 saturations 96% Head: Atraumatic, normocephalic. HEENT:[Neck is supple.] [No neck masses.] [No thyromegaly.] [No JVD.] Chest: Clear bilaterally no crackles or rhonchi or wheezes Cardiac Exam: [Normal S1 and S2, no S3 gallop, no murmur.] Abdomen: [Soft, nontender, no megaly, no rebound, no guarding, normal bowel sounds.] Extremities: [No clubbing, no edema, no cyanosis.] Neurological Exam: [No focal neurologic deficit.] Psychiatric: Depressed mood, affect and normal mental status examination. Skin: No rashes. - Labs CBC & Chem 7: 05/19/23 06:34 05/19/23 06:34 Labs: Microbiology - Last 24 Hours (Table) 05/14/23 09:38 Blood Culture - Final Blood Assessment and Plan Assessment: Impression: Septic shock secondary to pyelonephritis and E. coli/ESBL bacteremia Left ureteral stone with complicated urinary tract infection/pyelonephritis status post cystoscopy and insertion of left ureteral stent Acute hypoxic respiratory failure secondary to above, and secondary to acute diastolic congestive heart failure although the possibility of acute lung injury/noncardiogenic pulmonary edema is in the differential Bilateral pleural effusions, suspect pulmonary edema, could be cardiogenic or noncardiogenic, improving with diuretics, and we'll continue the same Acute lactic acidosis, resolved History of fibromyalgia, chronic pain syndrome History of seizures Acute thrombocytopenia, most likely secondary to sepsis.resolved platelets are 173 today. Recommendation: Continue Merrem, infectious disease to decide regarding possibly PICC line or midline placement and IV antibiotics at home, assuming long-term IV antibiotics for her presentation. Discontinue Lasix Symptoms of discharge planning was the patient is cleared by infectious disease and decision made regarding her antibiotics. On outpatient base Reassured about her chest x-ray Continue to monitor electrolytes Continue Keppra IV fluid at KVO Continue GI and DVT prophylaxis We will continue to follow Time with Patient: Less than 30
--- NOTE | 2023-05-20 15:00 | P.PN ---
Subjective Progress Note Date: 05/20/23 Hospital course: Patient is a very pleasant 67-year-old female with a past medical history of fibromyalgia, chronic pain, narcotic dependence, seizure disorder, and hyperlipidemia. She presented to the emergency department on 05/12/23 via transfer from [facility] secondary to obstructive ureteral stone after presenting there with complaints of fever, flank pain, and chills. She was transferred to our facility and admitted under urology where patient underwent urgent cystoscopy with left stent insertion on 05/12/23 and later transferred to the ICU as patient required phenylephrine drip during postoperative period to maintain a map greater than 65. Blood culture obtained 05/12/23 resulting positive for ESBL, patient was started on meropenem and consult was placed to infectious disease. Hematology was consulted secondary to thrombocytopenia. On 05/16/23 patient was found to have increasing oxygenation needs and chest x-ray showed pulmonary edema with bilateral pleural effusions and patient was started on Lasix 40 mg IV twice daily. Echocardiogram then completed showing a preserved EF of 50-55%. Repeat blood culture obtained 05/14/23 was negative showing no growth. Patient remains on meropenem 1 g every 8 hours. Urology and infectious disease remained following. Physical exam: Patient seen and fully evaluated at bedside this morning. Patient reports only complaint is feeling fatigued this morning and states mild burning with urination. She denies having any shortness of breath, wheezing, cough, chest pain, palpitations, or experiencing any dizziness/lightheadedness, or any other complaints. She has remained afebrile. Vital signs reviewed and stable. General: Nontoxic, no distress and appears stated age. Derm: Skin warm and dry, normal coloration for ethnicity. Head: Atraumatic, normocephalic and symmetric. Eyes: EOMs intact, no lid lag, and anicteric sclera Mouth: no lip lesions, mucus membranes moist Cardiovascular: regular rate and rhythm with normal S1S2, systolic murmur, positive posterior tibial pulses bilaterally, and cap refill < 2 seconds. Lungs: Respirations even, regular, and unlabored. Lungs CTA bilaterally, no rhonchi, no rales, no wheezing, and no accessory muscle usage. Abdominal: soft, nontender to palpation, no guarding, no appreciable organ omegaly Ext: ROM intact. No gross muscle atrophy, no edema, no contractures Neuro: Speech clear, face symmetrical and CN II-XII grossly intact with no noted focal neuro deficits Psych: Alert and oriented to person, place, time, and situation. Appropriate and pleasant affect. Assessment and Plan of Care: ESBL bacteremia Acute pyelonephritis Severe sepsis secondary to above Obstructive nephrolithiasis, status post cystoscopy and left ureteral stent pl acement on 05/12/23 -Patient to continue with meropenem 1 g every 8 hours. -Midline was placed right upper extremity on 05/18/23 for anticipated discharge home with IV Invanz. -Urology following, reviewed documentation in chart -Infectious disease following, discussed plan of care stating patient will require an additional 10 days of IV Invanz upon discharge. -Patient has documented output of 1100 mL over the past 24 hours. Acute hypoxic respiratory failure secondary to pulmonary edema and bilateral pleural effusions, likely fluid volume overload from diastolic heart failure exacerbation. Prerenal azotemia, secondary to IV diuresis Hypochloremic alkalosis, secondary to IV diuresis. Resolved Hypokalemia, Resolved -Pulmonology following, discussed plan of care, discontinued Lasix at this time secondary to patient's significant improvement on x-ray and overall appearing to do well. -Repeat x-ray completed at this morning showing improving mild pulmonary vascular congestion with only trace bilateral pleural effusions. -Patient to remain on telemetry monitoring. -Close monitoring of I's and O's. Patient had a documented 1100 mL of output over the past 24 hours. Thrombocytopenia. Unclear etiology possibly reactive secondary to sepsis. Resolved. Normocytic anemia, resolved. Elevated d-dimer, > 34.00. Unclear possibly reactive secondary to severe sepsis. -Hematology following. Reviewed documentation in chart. Hematology stating anemia workup consistent with anemia of inflammation stating no need for supplementation or further workup at this time. -CBC showing resolution of normocytic anemia and thrombocytopenia with hemoglobin of 12.4 and platelet count of 237 this morning. Data and imaging reviewed: -Repeat x-ray completed at this morning was reviewed, radiology report stating improving mild pulmonary vascular congestion with only trace bilateral pleural effusions. -Vital signs reviewed. Blood pressure 123/73, heart rate 86, respiratory rate 18, temp 97.4F, and SpO2 of 97% on 2 L. Thank you for allowing us to participate in the care of this pleasant patient. Do not hesitate to contact us with questions. Someone can be reached from the [facility] hospitalist group all hours of the day at [phone] or via perfect serve. Patient was seen independently by Nurse Pracitioner. This document was prepared using [employer] dictation software. Please allow for errors in retread supervisor, while rare they do occur. Wilmar Jhaveri [employer] MACHINE OPERATOR rendered care for this patient independently, reviewed the find ings and plan as documented in the note above. I did not physically speak with or examine the patient on this date. Objective - Vital Signs Vital signs: Vital Signs Temp 98.4 F 05/20/23 04:00 Pulse 84 05/20/23 04:00 Resp 18 05/20/23 04:00 BP 116/74 05/20/23 04:00 Pulse Ox 95 05/20/23 08:32 FiO2 Intake & Output 05/19/23 05/20/23 05/20/23 18:59 06:59 18:59 Intake Total 558 Output Total 1100 Balance -542 Weight 52 kg Intake: IV 340 .9@20 240 Meropenem 1 gm In Sodium 100 Chloride 0.9% 100 ml @ 33 .3 mls/hr IVPB Q8HR [facility] Rx#:[id number] Oral 218 Output: Urine 1100 Other: Voiding Method External Catheter External Catheter # Voids 2 - Labs CBC & Chem 7: 05/21/23 06:39 05/21/23 06:39 Labs: Microbiology - Last 24 Hours (Table) 05/14/23 09:38 Blood Culture - Final Blood
[2023-05-20] MEDS: ONDANSETRON 4 MG/2 ML VIAL IVP PRN (15:06)
[2023-05-20] MEDS: ALPRAZolam 0.25 MG TAB PO PRN (21:16)
[2023-05-21] MEDS: oxyCODONE-APAP 10-325MG 1 EACH TAB PO PRN ×5 (01:48→20:21)
[2023-05-21] MEDS: SODIUM CHLORIDE 0.9% 1,000 ML IV SCH (05:32)
[2023-05-21 06:51] LABS: HCT 40.7 % (34.0-46.0); HGB 13.2 gm/dL (11.4-16.0); MCH 29.5 pg (25.0-35.0); MCHC 32.4 g/dL (31.0-37.0); MCV 90.9 fL (80.0-100.0); Mean Platelet Volume 7.7; Platelet Count 362 k/uL (150-450); RBC 4.48 m/uL (3.80-5.40); RDW 13.5 % (11.5-15.5); WBC 11.3 k/uL (3.8-10.6)
[2023-05-21 07:06] LABS: ALT 14 U/L (4-34); AST 30 U/L (14-36); African American GFR (CKD) >90 (>60 ml/min/1.73 sqM); Albumin 3.2 g/dL (3.5-5.0); Alkaline Phosphatase 112 U/L (38-126); Anion Gap 11 mmol/L; Blood Urea Nitrogen 30 mg/dL (7-17); Calcium 9.3 mg/dL (8.4-10.2); Carbon Dioxide 25 mmol/L (22-30); Chloride 100 mmol/L (98-107); Glucose 109 mg/dL (74-99); Magnesium 2.2 mg/dL (1.6-2.3); Non-African American GFR(CKD) >90 (>60 ml/min/1.73 sqM); Potassium 4.1 mmol/L (3.5-5.1); Sodium 136 mmol/L (137-145); Total Bilirubin 0.9 mg/dL (0.2-1.3); Total Protein 6.5 g/dL (6.3-8.2)
[2023-05-21] MEDS: levETIRAcetam 500 MG TAB PO SCH ×2 (09:16→20:21)
[2023-05-21] MEDS: CHOLECALCIFEROL 125 MCG (5000 IU) TABLET PO SCH (09:16)
[2023-05-21] MEDS: ENOXAPARIN 40 MG/0.4 ML SYRINGE SQ SCH (09:16)
[2023-05-21] MEDS: PANTOPRAZOLE 40 MG TABLET PO SCH (09:16)
[2023-05-21] MEDS: PRAVASTATIN SODIUM 20 MG TAB PO SCH (09:16)
[2023-05-21] MEDS: MEROPENEM 1 GM in SODIUM CHLORIDE 0.9% 100 ML IVPB SCH ×2 (09:17→16:22)
[2023-05-21] MEDS: FENOFIBRATE 54 MG TAB PO SCH (09:17)
[2023-05-21] MEDS ORDERED: KETOROLAC 15 MG/ML 1 ML VIAL IVP STA (10:13)
--- NOTE | 2023-05-21 10:54 | P.PN ---
Subjective Progress Note Date: 05/21/23 Principal diagnosis: UTI with sepsis The patient has no specific complaints at this time. Specifically, she denies flank pain. Objective - Vital Signs Vital signs: Vital Signs Temp 98.0 F 05/21/23 04:00 Pulse 85 05/21/23 04:00 Resp 18 05/21/23 04:00 BP 106/57 05/21/23 04:00 Pulse Ox 94 L 05/21/23 04:00 FiO2 Intake & Output 05/20/23 05/21/23 05/21/23 18:59 06:59 18:59 Intake Total 540 Output Total 1800 450 Balance -1260 -450 Weight 40.5 kg Intake: IV 440 .9@20 240 Meropenem 1 gm In Sodium 200 Chloride 0.9% 100 ml @ 33 .3 mls/hr IVPB Q8HR [facility] Rx#:[id number] Oral 100 Output: Urine 1800 450 Other: Voiding Method External Catheter External Catheter # Voids 1 # Bowel Movements 1 - Constitutional General appearance: Present: average body habitus, no acute distress - Psychiatric Psychiatric: Present: A&O x's 3 - Labs CBC & Chem 7: 05/21/23 06:39 05/21/23 06:39 Labs: Abnormal Lab Results - Last 24 Hours (Table) 05/21/23 05/21/23 Range/Units 06:39 06:39 WBC 11.3 H (3.8-10.6) k/uL Sodium 136 L (137-145) mmol/L BUN 30 H (7-17) mg/dL Glucose 109 H (74-99) mg/dL Albumin 3.2 L (3.5-5.0) g/dL Assessment and Plan Assessment: The patient has undergone ureteral stent placement due to an obstructing ureteral calculus. Blood cultures have shown ESBL E. coli presumed to be of urinary tract origin. (1) Complicated UTI (urinary tract infection) Current Visit: Yes Status: Acute Code(s): N39.0 - URINARY TRACT INFECTION, SITE NOT SPECIFIED SNOMED Code(s): 03630126 (2) Calculus of ureter Current Visit: Yes Status: Acute Code(s): N20.1 - CALCULUS OF URETER SNOMED Code(s): 33626901 Plan: The patient is urologically stable for discharge home on culture appropriate IV antibiotics. Arrangements will be made for her to undergo elective cystoscopy, stent removal, ureteroscopy with removal of ureteral calculus. Please notify us if we can be of any further assistance during this hospitalization.
[2023-05-21 11:54] VITALS: BMI 14.3
[2023-05-21] MEDS: ONDANSETRON 4 MG/2 ML VIAL IVP PRN (11:54)
--- NOTE | 2023-05-21 13:37 | P.PN ---
Subjective Progress Note Date: 05/21/23 Principal diagnosis: Sepsis. Patient was reevaluated today on , remains in the ICU, remains on Merrem, remains on Lasix 40 mg IV push twice a day, patient is feeling better today, breathing easier. She is now down to 2 L nasal cannula, and O2 saturation is 94%. Asked x-ray is showing slight improvement in her congestive heart failure. Again I am more inclined to consider this as a diastolic acute diastolic congestive heart failure rather than noncardiogenic pulmonary edema although both are in the differential. Nonetheless the patient is improving with diuretics, and we'll continue Lasix for now. WBC count today is 13.2 hemoglobin 14 basic metabolic profile is normal and renal profile is normal. BNP yesterday was 9600 Noted today on 05/18/2023, patient remains in the ICU, she is actually an overflow, she would likely go to medical floor today. Continues to steadily improve. Achieving about 1000 mL on her incentive spirometry. Has been on Lasix all along and I cut it down to 40 mg daily remains on Merrem for her E. coli/ESBL activity anemia, being followed by infectious disease. Echocardiogram showed good LV function. Chest x-ray continues to show small bilateral pleural effusions and atelectasis patient is on 2 L nasal cannula with adequate O2 saturation in the 90s. Repeat blood cultures from 05/14 are negative so far. WBC count is 14.9 hemoglobin 12.3 basic metabolic profile is normal except low potassium of 3.3 renal profile is normal Patient was reevaluated today on 05/19/2023, patient continues to do well, she is now on the cardiac floor, does not seem to be in any distress, on 2 L nasal cannula with O2 sats of 94%, remains on antibiotics, remains on diuretics, remains on GI prophylaxis, and she has adequate control of her pain. Her last chest x-ray showed small bilateral pleural effusions and atelectasis, follow-up chest x-ray will be done tomorrow and I would likely decrease her Lasix or switch her to oral. W see count is 12.9 hemoglobin 12.4 basic metabolic profile is normal renal profile is normal electrolytes are normal Reevaluated today on 05/20/2023, patient is doing great, much better, chest x- ray is showing significant improvement in her bilateral pleural effusions and pulmonary edema again it is hard to say whether this was cardiogenic or noncardiogenic pulmonary edema. Nonetheless the patient improved with diuretics, remains on antibiotics for her bacteremia/ESBL E. coli. Primary source is pyelonephritis. Patient denies any shortness of breath cough or wheezing, she is afebrile, hemodynamically stable, WBC count is 12.9 hemoglobin 12.4 basic metabolic profile is normal renal profile is normal Progress note dated 05/21/2023. The patient is seen in room 382. She's now been in the hospital for 9 days. The patient was admitted with a diagnosis of sepsis, secondary to ESBL Escherichia coli, pyelonephritis. Currently, the patient is on room air. Is receiving saline at 20 mL an hour. She's feeling much better clinically. Currently labs include a white count 11.3, he will 13.2, hematocrit 40.7, and a platelet count of 362,000. Sodium 136, potassium 4.1, chlorides 100, CO2 25, BUN 30, creatinine 0.56. Glucose is 109. Albumin is 3.2. Blood cultures from May 12 were positive for Escherichia coli. Chest x-ray from May 20 shows improving pulmonary vascular congestion. The patient continues on meropenem. Objective - Vital Signs Vital signs: Vital Signs Temp 98.4 F 05/21/23 11:57 Pulse 84 05/21/23 11:57 Resp 17 05/21/23 11:57 BP 117/66 05/21/23 11:57 Pulse Ox 95 05/21/23 11:57 FiO2 21 05/21/23 08:33 Intake & Output 05/20/23 05/21/23 05/21/23 18:59 06:59 18:59 Intake Total 540 Output Total 1800 450 Balance -1260 -450 Weight 40.5 kg 40.5 kg Intake: IV 440 .9@20 240 Meropenem 1 gm In Sodium 200 Chloride 0.9% 100 ml @ 33 .3 mls/hr IVPB Q8HR [facility] Rx#:[id number] Oral 100 Output: Urine 1800 450 Other: Voiding Method External Catheter External Catheter External Catheter # Voids 1 # Bowel Movements 1 - Exam No acute distress, oriented 3. Currently on room air. Saturations 95%. HEENT examination is grossly unremarkable. Mucous membranes are moist. No oral lesions. Neck supple. Full range of motion. No adenopathy thyromegaly or neck vein distention. Cardiovascular examination reveals regular rhythm rate. S1-S2 normal. No S3 or S4. No discernible murmur noted. Heart rate 84 bpm. Lungs reveal clear breath sounds. Breath sounds are equal bilaterally. No adventitious lung sounds including wheezes rhonchi or crackles. Abdomen soft bowel sounds are heard. No masses or tenderness. Extremities are intact. No cyanosis clubbing or edema. Skin is without rash or lesion. Neurologic examination is brief but nonfocal. - Labs CBC & Chem 7: 05/21/23 06:39 05/21/23 06:39 Labs: Abnormal Lab Results - Last 24 Hours (Table) 05/21/23 05/21/23 Range/Units 06:39 06:39 WBC 11.3 H (3.8-10.6) k/uL Sodium 136 L (137-145) mmol/L BUN 30 H (7-17) mg/dL Glucose 109 H (74-99) mg/dL Albumin 3.2 L (3.5-5.0) g/dL Assessment and Plan Assessment: Septic shock secondary to pyelonephritis, from ESBL Escherichia coli, kortney teremia. Left ureteral stone, with complicated urinary tract infection/pyelonephritis, status post cystoscopy and insertion of a left ureteral stent. Acute hypoxemic respiratory failure, secondary to acute diastolic CHF. Bilateral pleural effusions and pulmonary vascular congestion, improved, either secondary to cardiogenic or noncardiogenic etiology. Fibromyalgia. History of seizures. Sepsis-induced thrombocytopenia. Plan: Plan dated 05/21/2023. The patient is seen today in room 382. Clinically, she's feeling much better. She's on room air. She's receiving saline at 20 mL an hour, and she continues on meropenem for her extended spectrum beta-lactamase producing Escherichia coli. The patient's chest x-ray from May 20 is improved. Labs, x-rays, medications are all reviewed. She continues on GI and DVT prophylaxis. We will continue to follow the patient, and make recommendations along the way. Prognosis is guarded. Time with Patient: Less than 30
--- NOTE | 2023-05-21 15:40 | P.PN ---
Subjective Progress Note Date: 05/21/23 Hospital course: Patient is a very pleasant 67-year-old female with a past medical history of fibromyalgia, chronic pain, narcotic dependence, seizure disorder, and hyperlipidemia. She presented to the emergency department on 05/12/23 via transfer from [facility] secondary to obstructive ureteral stone after presenting there with complaints of fever, flank pain, and chills. She was transferred to our facility for treatment of pyelonephritis and obstructive nephrolithiasis. She was admitted under urology where patient underwent urgent cystoscopy with left stent insertion on 05/12/23 and later transferred to the ICU as patient required phenylephrine drip during postoperative period to maintain a map greater than 65. Blood culture obtained 05/12/23 resulting positive for ESBL, patient was started on meropenem and consult was placed to infectious disease. Hematology was consulted secondary to thrombocytopenia. On 05/16/23 patient was found to have increasing oxygenation needs and chest x-ray showed pulmonary edema with bilateral pleural effusions and patient was started on Lasix 40 mg IV twice daily. Echocardiogram then completed showing a preserved EF of 50-55%. Repeat blood culture obtained 05/14/23 was negative showing no growth. Patient remains on meropenem 1 g every 8 hours. Urology and infectious disease remained following. Physical exam: Patient seen and fully evaluated at bedside this morning. Patient reports only complaint is her chronic pain. She denies having any changes or increases in her chronic pain. Patient states that she feels pretty ready to go home. Anticipate discharge within the next 24 hours, awaiting to hear back from infectious disease for antibiotic management. Vital signs reviewed and stable. General: Nontoxic, no distress and appears stated age. Derm: Skin warm and dry, normal coloration for ethnicity. Head: Atraumatic, normocephalic and symmetric. Eyes: EOMs intact, no lid lag, and anicteric sclera Mouth: no lip lesions, mucus membranes moist Cardiovascular: regular rate and rhythm with normal S1S2, systolic murmur, positive posterior tibial pulses bilaterally, and cap refill < 2 seconds. Lungs: Respirations even, regular, and unlabored. Lungs CTA bilaterally, no rhonchi, no rales, no wheezing, and no accessory muscle usage. Abdominal: soft, nontender to palpation, no guarding, no appreciable organomegaly Ext: ROM intact. No gross muscle atrophy, no edema, no contractures Neuro: Speech clear, face symmetrical and CN II-XII grossly intact with no noted focal neuro deficits Psych: Alert and oriented to person, place, time, and situation. Appropriate and pleasant affect. Assessment and Plan of Care: ESBL bacteremia Acute pyelonephritis Severe sepsis secondary to above Obstructive nephrolithiasis, status post cystoscopy and left ureteral stent placement on 05/12/23 -Patient to continue with meropenem 1 g every 8 hours. -Midline was placed right upper extremity on 05/18/23 for anticipated discharge home with IV Invanz per infectious disease. -Urology following, reviewed documentation in chart. Clearing patient from their perspective for discharge. -Infectious disease following, reviewed documentation in chart. -Patient has documented output of only 500 mL over the past 24 hours, RN reports patient has been using toilet as well. Acute hypoxic respiratory failure secondary to pulmonary edema and bilateral pleural effusions, likely fluid volume overload from diastolic heart failure exacerbation. Prerenal azotemia, secondary to IV diuresis Hypochloremic alkalosis, secondary to IV diuresis. Resolved Hypokalemia, Resolved -Pulmonology following, reviewed documentation in chart. -Repeat x-ray completed at this morning showing improving mild pulmonary vascular congestion with only trace bilateral pleural effusions. -Patient to remain on telemetry monitoring. -Close monitoring of I's and O's. Thrombocytopenia. Unclear etiology possibly reactive secondary to sepsis. Resolved. Normocytic anemia, resolved. Elevated d-dimer, > 34.00. Unclear possibly reactive secondary to severe sepsis. -Hematology following. Reviewed documentation in chart. Hematology stating anemia workup consistent with anemia of inflammation stating no need for supplementation or further workup at this time. -CBC showing resolution of normocytic anemia and thrombocytopenia with hemoglobin of 12.4 and platelet count of 237 this morning. Data and imaging reviewed: -Labs completed and reviewed. CBC showing leukocytosis with WBC count of 11.3. BMP revealing prerenal azotemia with BUN of 30 otherwise normal findings. Glucose 109. Liver profile unremarkable.. -Vital signs reviewed. Blood pressure 119/65, heart rate 86, respiratory rate 17, temp 97.1F, SpO2 of 94% on room air. From a medical perspective, patient medically optimized for discharge once antibiotic recommendations are provided by infectious disease and patient is discharged by her primary admitting urology team. Thank you for allowing us to participate in the care of this pleasant patient. Do not hesitate to contact us with questions. Someone can be reached from the [facility] hospitalist group all hours of the day at [phone] or via perfect serve. Patient was seen independently by Nurse Pracitioner. This document was prepared using [employer] dictation software. Please allow for errors in retail beauty specialist, while rare they do occur. Wilmar Jhaveri CITY MANAGER rendered care for this patient independently, reviewed the findings and plan as documented in the note above. I did not physically speak with or examine the patient on this date. Objective - Vital Signs Vital signs: Vital Signs Temp 98.0 F 05/21/23 04:00 Pulse 85 05/21/23 04:00 Resp 18 05/21/23 04:00 BP 106/57 05/21/23 04:00 Pulse Ox 94 L 05/21/23 04:00 FiO2 Intake & Output 05/20/23 05/21/23 05/21/23 18:59 06:59 18:59 Intake Total 540 Output Total 1800 450 Balance -1260 -450 Weight 40.5 kg Intake: IV 440 .9@20 240 Meropenem 1 gm In Sodium 200 Chloride 0.9% 100 ml @ 33 .3 mls/hr IVPB Q8HR [facility] Rx#:[id number] Oral 100 Output: Urine 1800 450 Other: Voiding Method External Catheter External Catheter # Voids 1 # Bowel Movements 1 - Labs CBC & Chem 7: 05/21/23 06:39 05/21/23 06:39 Labs: Abnormal Lab Results - Last 24 Hours (Table) 05/21/23 05/21/23 Range/Units 06:39 06:39 WBC 11.3 H (3.8-10.6) k/uL Sodium 136 L (137-145) mmol/L BUN 30 H (7-17) mg/dL Glucose 109 H (74-99) mg/dL Albumin 3.2 L (3.5-5.0) g/dL
[2023-05-21] MEDS: ALPRAZolam 0.25 MG TAB PO PRN (22:16)
--- NOTE | 2023-05-21 23:55 | P.PN ---
Subjective Progress Note Date: 05/19/23 Principal diagnosis: Reason for follow-up is complicated UTI and ESBL E. coli bacteremia Patient is a 67-year-old female with a past medical history significant for hyperlipidemia seizure disorder fibromyalgia patient presented to the hospital with abdominal pain has been diagnosed with a complicated UTI with sepsis in this patient who is status post cystoscopy and left ureteral stent placement blood culture positive for ESBL E. coli On today's evaluation that is 05/19/2023 the patient denies having any fever or any chills, patient is breathing comfortably on 2 L nasal cannula oxygen patient denies having any chest pain or cough no further nausea no vomiting no abdominal pain no diarrhea. Patient white count is down to 12.9, creatinine 0.65 blood culture repeat has been negative. Objective - Vital Signs Vital signs: Vital Signs Temp 98.0 F 05/19/23 10:34 Pulse 90 05/19/23 10:34 Resp 18 05/19/23 10:34 BP 120/74 05/19/23 10:34 Pulse Ox 94 L 05/19/23 10:34 FiO2 Intake & Output 05/18/23 05/19/23 05/19/23 18:59 06:59 18:59 Intake Total 460 20 450 Output Total 1000 300 Balance -540 -280 450 Weight 70.9 kg 67 kg Intake: IV 220 20 350 .9@20 240 Invasive Line 5 10 Invasive Line 6 10 20 10 Meropenem 1 gm In Sodium 200 100 Chloride 0.9% 100 ml @ 33 .3 mls/hr IVPB Q8HR [facility] Rx#:[id number] Oral 240 100 Output: Urine 1000 300 Other: Voiding Method Toilet External Catheter External Catheter # Voids 1 - Labs CBC & Chem 7: 05/21/23 06:39 05/21/23 06:39 Labs: Abnormal Lab Results - Last 24 Hours (Table) 05/19/23 05/19/23 Range/Units 06:34 06:34 WBC 12.9 H (3.8-10.6) k/uL BUN 30 H (7-17) mg/dL Glucose 119 H (74-99) mg/dL Assessment and Plan (1) Complicated UTI (urinary tract infection) Current Visit: Yes Status: Acute Code(s): N39.0 - URINARY TRACT INFECTION, SITE NOT SPECIFIED SNOMED Code(s): 25721870 (2) Infection due to ESBL-producing Escherichia coli Current Visit: Yes Status: Acute Code(s): A49.8 - OTHER BACTERIAL INFECTIONS OF UNSPECIFIED SITE; Z16.12 - EXTENDED SPECTRUM BETA LACTAMASE (ESBL) RESISTANCE SNOMED Code(s): 716634533 (3) Leukocytosis Current Visit: Yes Status: Acute Code(s): D72.829 - ELEVATED WHITE BLOOD CELL COUNT, UNSPECIFIED SNOMED Code(s): 845750691 Plan: 1patient presented to hospital with sepsis initially in this patient who did have a fever elevated white count source is complicated UTI in this patient who did have a left-sided hydronephrosis secondary to left ureteral stone requiring cystoscopy and ureteral stent placement. 2patient with ESBL E. coli bacteremia source is likely left-sided p yelonephritis. 3patient blood cultures from 05/14/2023 so far negative indicating clearance of her bacteremia patient be able to get a midline placement. 4patient to continue with the meropenem patient white count is trending down patient be able to finish therapy with IV Invanz as per discussion with medical team team Dictation was produced using [employer] dictation software. please excuse any gr ammatical, word or spelling errors.
--- NOTE | 2023-05-21 23:57 | P.PN ---
Subjective Progress Note Date: 05/20/23 Principal diagnosis: Reason for follow-up is complicated UTI and ESBL E. coli bacteremia Patient is a 67-year-old female with a past medical history significant for hyperlipidemia seizure disorder fibromyalgia patient presented to the hospital with abdominal pain has been diagnosed with a complicated UTI with sepsis in this patient who is status post cystoscopy and left ureteral stent placement blood culture positive for ESBL E. coli On today's evaluation that is 05/20/2023 the patient remains to be afebrile, patient is breathing comfortably on 2 L nasal cannula oxygen however the patient denies any shortness of breath, no chest pain or cough, the patient denies nausea no vomiting no abdominal pain no diarrhea. Patient white count is down to 12.9, creatinine 0.65 as of 05/19/2023 no labs for today blood culture repeat has been negative. Objective - Vital Signs Vital signs: Vital Signs Temp 98.1 F 05/20/23 11:35 Pulse 85 05/20/23 11:35 Resp 16 05/20/23 11:35 BP 109/73 05/20/23 11:35 Pulse Ox 96 05/20/23 11:35 FiO2 Intake & Output 05/19/23 05/20/23 05/20/23 18:59 06:59 18:59 Intake Total 558 440 Output Total 1100 1200 Balance -542 -760 Weight 52 kg Intake: IV 340 440 .9@20 240 240 Meropenem 1 gm In Sodium 100 200 Chloride 0.9% 100 ml @ 33 .3 mls/hr IVPB Q8HR [facility] Rx#:[id number] Oral 218 Output: Urine 1100 1200 Other: Voiding Method External Catheter External Catheter External Catheter # Voids 2 - Labs CBC & Chem 7: 05/21/23 06:39 05/21/23 06:39 Labs: Microbiology - Last 24 Hours (Table) 05/14/23 09:38 Blood Culture - Final Blood Assessment and Plan (1) Complicated UTI (urinary tract infection) Current Visit: Yes Status: Acute Code(s): N39.0 - URINARY TRACT INFECTION, SITE NOT SPECIFIED SNOMED Code(s): 14502031 (2) Infection due to ESBL-producing Escherichia coli Current Visit: Yes Status: Acute Code(s): A49.8 - OTHER BACTERIAL INFECTIONS OF UNSPECIFIED SITE; Z16.12 - EXTENDED SPECTRUM BETA LACTAMASE (ESBL) RESISTANCE SNOMED Code(s): 463617651 (3) Leukocytosis Current Visit: Yes Status: Acute Code(s): D72.829 - ELEVATED WHITE BLOOD CELL COUNT, UNSPECIFIED SNOMED Code(s): 629369776 Plan: 1patient presented to hospital with sepsis initially in this patient who did have a fever elevated white count source is complicated UTI in this patient who did have a left-sided hydronephrosis secondary to left ureteral stone requiring cystoscopy and ureteral stent placement. 2patient with ESBL E. coli bacteremia source is likely left-sided pyelon ephritis. 3patient blood cultures from 05/14/2023 so far negative indicating clearance of her bacteremia patient be able to get a midline placement. 4patient has shown clinical improvement in the patient white count trending down as of yesterday to continue with the meropenem however patient able to finish therapy with Invanz 1 g daily Dictation was produced using [employer] dictation software. please excuse any grammatical, word or spelling errors.
--- NOTE | 2023-05-22 | P.PN ---
Subjective Progress Note Date: 05/21/23 Principal diagnosis: Reason for follow-up is complicated UTI and ESBL E. coli bacteremia Patient is a 67-year-old female with a past medical history significant for hyperlipidemia seizure disorder fibromyalgia patient presented to the hospital with abdominal pain has been diagnosed with a complicated UTI with sepsis in this patient who is status post cystoscopy and left ureteral stent placement blood culture positive for ESBL E. coli On today's evaluation that is 05/21/2023 the patient continues to be afebrile, patient is breathing comfortably on room air without the need for supplemental oxygen patient denies having any chest pain shortness of breath or cough. Denies any abdominal pain no nausea no vomiting and no diarrhea has been reported Patient white count is down to 11.3, creatinine 0.56 Objective - Vital Signs Vital signs: Vital Signs Temp 97.1 F L 05/21/23 08:10 Pulse 86 05/21/23 08:10 Resp 17 05/21/23 08:10 BP 119/65 05/21/23 08:10 Pulse Ox 93 L 05/21/23 08:33 FiO2 21 05/21/23 08:33 Intake & Output 05/20/23 05/21/23 05/21/23 18:59 06:59 18:59 Intake Total 540 Output Total 1800 450 Balance -1260 -450 Weight 40.5 kg Intake: IV 440 .9@20 240 Meropenem 1 gm In Sodium 200 Chloride 0.9% 100 ml @ 33 .3 mls/hr IVPB Q8HR [facility] Rx#:[id number] Oral 100 Output: Urine 1800 450 Other: Voiding Method External Catheter External Catheter # Voids 1 # Bowel Movements 1 - Exam GENERAL DESCRIPTION: An elderly female lying in bed in no distress RESPIRATORY SYSTEM: Unlabored breathing , decreased breath sound the bases HEART: S1 S2 regular rate and rhythm , ABDOMEN: Soft , no tenderness EXTREMITIES: No edema feet - Labs CBC & Chem 7: 05/21/23 06:39 05/21/23 06:39 Labs: Abnormal Lab Results - Last 24 Hours (Table) 05/21/23 05/21/23 Range/Units 06:39 06:39 WBC 11.3 H (3.8-10.6) k/uL Sodium 136 L (137-145) mmol/L BUN 30 H (7-17) mg/dL Glucose 109 H (74-99) mg/dL Albumin 3.2 L (3.5-5.0) g/dL Assessment and Plan (1) Complicated UTI (urinary tract infection) Current Visit: Yes Status: Acute Code(s): N39.0 - URINARY TRACT INFECTION, SITE NOT SPECIFIED SNOMED Code(s): 24881650 (2) Infection due to ESBL-producing Escherichia coli Current Visit: Yes Status: Acute Code(s): A49.8 - OTHER BACTERIAL INFECTIONS OF UNSPECIFIED SITE; Z16.12 - EXTENDED SPECTRUM BETA LACTAMASE (ESBL) RESISTANCE SNOMED Code(s): 294097669 (3) Leukocytosis Current Visit: Yes Status: Acute Code(s): D72.829 - ELEVATED WHITE BLOOD CELL COUNT, UNSPECIFIED SNOMED Code(s): 185755427 Plan: 1patient presented to hospital with sepsis initially in this patient who did have a fever elevated white count source is complicated UTI in this patient who did have a left-sided hydronephrosis secondary to left ureteral stone requiring cystoscopy and ureteral stent placement. 2patient with ESBL E. coli bacteremia source is likely left-sided pyelonephritis. 3patient blood cultures from 05/14/2023 so far negative indicating clearance of her bacteremia patient be able to get a midline placement. 4patient is slowly clinically improving elevation white count is down to. 11.3 she is currently on meropenem however plan is to finish therapy with Invanz 1 g daily, duration is a total of 2 weeks Dictation was produced using [employer] dictation software. please excuse any grammatical, word or spelling errors. Time with Patient: Less than 30
[2023-05-22] MEDS: oxyCODONE-APAP 10-325MG 1 EACH TAB PO PRN ×4 (00:26→15:12)
[2023-05-22] MEDS: MEROPENEM 1 GM in SODIUM CHLORIDE 0.9% 100 ML IVPB SCH ×2 (00:26→09:24)
[2023-05-22] MEDS: SODIUM CHLORIDE 0.9% 1,000 ML IV SCH (05:37)
[2023-05-22 08:45] VITALS: RESP 17
[2023-05-22] MEDS: FENOFIBRATE 54 MG TAB PO SCH (09:55)
[2023-05-22] MEDS: CHOLECALCIFEROL 125 MCG (5000 IU) TABLET PO SCH (09:55)
[2023-05-22] MEDS: PRAVASTATIN SODIUM 20 MG TAB PO SCH (09:55)
[2023-05-22] MEDS: levETIRAcetam 500 MG TAB PO SCH (09:55)
[2023-05-22] MEDS: PANTOPRAZOLE 40 MG TABLET PO SCH (09:55)
[2023-05-22] MEDS: ENOXAPARIN 40 MG/0.4 ML SYRINGE SQ SCH (09:56)
[2023-05-22 11:13] VITALS: BP 105/58; PULSE 84; TEMP 97.7
[2023-05-22] MEDS ORDERED: ERTAPENEM 1 GM in SODIUM CHLORIDE 0.9% 50 ML IVPB SCH (11:30)
--- NOTE | 2023-05-22 11:56 | P.PN ---
Subjective Progress Note Date: 05/22/23 Principal diagnosis: Sepsis. Patient was reevaluated today on , remains in the ICU, remains on Merrem, remains on Lasix 40 mg IV push twice a day, patient is feeling better today, breathing easier. She is now down to 2 L nasal cannula, and O2 saturation is 94%. Asked x-ray is showing slight improvement in her congestive heart failure. Again I am more inclined to consider this as a diastolic acute diastolic congestive heart failure rather than noncardiogenic pulmonary edema although both are in the differential. Nonetheless the patient is improving with diuretics, and we'll continue Lasix for now. WBC count today is 13.2 hemoglobin 14 basic metabolic profile is normal and renal profile is normal. BNP yesterday was 9600 Noted today on 05/18/2023, patient remains in the ICU, she is actually an overflow, she would likely go to medical floor today. Continues to steadily improve. Achieving about 1000 mL on her incentive spirometry. Has been on Lasix all along and I cut it down to 40 mg daily remains on Merrem for her E. coli/ESBL activity anemia, being followed by infectious disease. Echocardiogram showed good LV function. Chest x-ray continues to show small bilateral pleural effusions and atelectasis patient is on 2 L nasal cannula with adequate O2 saturation in the 90s. Repeat blood cultures from 05/14 are negative so far. WBC count is 14.9 hemoglobin 12.3 basic metabolic profile is normal except low potassium of 3.3 renal profile is normal Patient was reevaluated today on 05/19/2023, patient continues to do well, she is now on the cardiac floor, does not seem to be in any distress, on 2 L nasal cannula with O2 sats of 94%, remains on antibiotics, remains on diuretics, remains on GI prophylaxis, and she has adequate control of her pain. Her last chest x-ray showed small bilateral pleural effusions and atelectasis, follow-up chest x-ray will be done tomorrow and I would likely decrease her Lasix or switch her to oral. W see count is 12.9 hemoglobin 12.4 basic metabolic profile is normal renal profile is normal electrolytes are normal Reevaluated today on 05/20/2023, patient is doing great, much better, chest x- ray is showing significant improvement in her bilateral pleural effusions and pulmonary edema again it is hard to say whether this was cardiogenic or noncardiogenic pulmonary edema. Nonetheless the patient improved with diuretics, remains on antibiotics for her bacteremia/ESBL E. coli. Primary source is pyelonephritis. Patient denies any shortness of breath cough or wheezing, she is afebrile, hemodynamically stable, WBC count is 12.9 hemoglobin 12.4 basic metabolic profile is normal renal profile is normal Progress note dated 05/21/2023. The patient is seen in room 382. She's now been in the hospital for 9 days. The patient was admitted with a diagnosis of sepsis, secondary to ESBL Escherichia coli, pyelonephritis. Currently, the patient is on room air. Is receiving saline at 20 mL an hour. She's feeling much better clinically. Currently labs include a white count 11.3, he will 13.2, hematocrit 40.7, and a platelet count of 362,000. Sodium 136, potassium 4.1, chlorides 100, CO2 25, BUN 30, creatinine 0.56. Glucose is 109. Albumin is 3.2. Blood cultures from May 12 were positive for Escherichia coli. Chest x-ray from May 20 shows improving pulmonary vascular congestion. The patient continues on meropenem. Progress note dated 05/22/2023. 67-year-old female seen in room 382. She apparently the hospital now for 10 days. Admitted with a diagnosis of sepsis, secondary to ESBL Escherichia coli, pyelonephritis. Currently, the patient's resting comfortably, in bed. She is on room air. She's not receiving any IV fluids. The patient continues on meropenem for her infection. The pulmonary standpoint, the patient is very stable. No new labs today. Labs from May 21 have been reviewed. Please see the note above. Objective - Vital Signs Vital signs: Vital Signs Temp 97.7 F 05/22/23 11:06 Pulse 84 05/22/23 11:06 Resp 17 05/22/23 11:06 BP 105/58 05/22/23 11:06 Pulse Ox 95 05/22/23 11:06 FiO2 21 05/21/23 08:33 Intake & Output 05/21/23 05/22/23 05/22/23 18:59 06:59 18:59 Intake Total 460 240 Output Total 300 350 Balance 160 -350 240 Weight 40.5 kg Intake: IV 220 .9@20 120 Meropenem 1 gm In Sodium 100 Chloride 0.9% 100 ml @ 33 .3 mls/hr IVPB Q8HR [facility] Rx#:[id number] Oral 240 240 Output: Urine 300 350 Other: Voiding Method External Catheter External Catheter External Catheter # Bowel Movements 1 - Exam No acute distress, oriented 3. Currently on room air. Saturations 96 %. HEENT examination is grossly unremarkable. Mucous membranes are moist. No oral lesions. Neck supple. Full range of motion. No adenopathy thyromegaly or neck vein distention. Cardiovascular examination reveals regular rhythm rate. S1-S2 normal. No S3 or S4. No discernible murmur noted. Heart rate 80 bpm. Lungs reveal clear breath sounds. Breath sounds are equal bilaterally. No adventitious lung sounds including wheezes rhonchi or crackles. Abdomen soft bowel sounds are heard. No masses or tenderness. Extremities are intact. No cyanosis clubbing or edema. Skin is without rash or lesion. Neurologic examination is brief but nonfocal. - Labs CBC & Chem 7: 05/21/23 06:39 05/21/23 06:39 Assessment and Plan Assessment: Septic shock secondary to pyelonephritis, from ESBL Escherichia coli, bacteremia. Left ureteral stone, with complicated urinary tract infection/pyelonephritis, status post cystoscopy and insertion of a left ureteral stent. Acute hypoxemic respiratory failure, secondary to acute diastolic CHF. Bilateral pleural effusions and pulmonary vascular congestion, improved, either secondary to cardiogenic or noncardiogenic etiology. Fibromyalgia. History of seizures. Sepsis-induced thrombocytopenia. Plan: Plan dated 05/21/2023. The patient is seen today in room 382. Clinically, she's feeling much better. She's on room air. She's receiving saline at 20 mL an hour, and she continues on meropenem for her extended spectrum beta-lactamase producing Escherichia coli. The patient's chest x-ray from May 20 is improved. Labs, x-rays, medications are all reviewed. She continues on GI and DVT prophylaxis. We will continue to follow the patient, and make recommendations along the way. Prognosis is guarded. Plan dated 05/22/2023. The patient has been stable over last few days. She stable from both the respiratory standpoint, and cardiovascular standpoint. The patient continues on meropenem for her ESBL Escherichia coli. Labs, x-rays, medications are reviewed. She continues on GI and DVT prophylaxis. Prognosis is guarded. We will continue to follow the patient, and make recommendations along the way. Time with Patient: Less than 30
--- NOTE | 2023-05-22 14:45 | P.DS ---
Providers Date of admission: 05/12/23 04:53 Expected date of discharge: 05/22/23 Attending physician: Nicolás Garcia Consults: 05/12/23 08:45 Consult Physician Stat Consulting Provider: Ronal Camacho Consult Reason/Comments: medical management Do you want consulting provider notified?: Yes 05/12/23 15:59 Consult Physician Routine Consulting Provider: Lokesh Case Consult Reason/Comments: ICU management Do you want consulting provider notified?: Yes 05/14/23 08:46 Consult Physician Stat Consulting Provider: Kimo Vazquez Consult Reason/Comments: elevated D-Dimer, thrombocytopenia Do you want consulting provider notified?: Yes 05/15/23 13:54 Consult Physician Routine Consulting Provider: Livan Bonilla Consult Reason/Comments: esbl e coli sepsis/septic shock Do you want consulting provider notified?: Yes Primary care physician: German Griffith - Discharge Diagnosis(es) (1) Complicated UTI (urinary tract infection) Current Visit: Yes Status: Acute (2) Calculus of ureter Current Visit: Yes Status: Acute Hospital Course: 67-year-old female admitted with sepsis of urinary origin complicated by a 3 mm left ureteral calculus. At the time of admission, she was hypotensive with elevated serum lactic acid levels. She underwent cystoscopy with left ureteral stent insertion on 05/12/2023. She was then managed in the ICU and treated with IV antibiotics, hydration, and vasopressors. She was transferred out of the ICU on 05/18/2023. Blood cultures showed ESBL E. coli, and she was treated with meropenem. Her condition improved significantly such that she was stable for discharge on 05/22/2023. Arrangements have been made for her to continue to receive outpatient antibiotic therapy (Invanz) to complete her course of antibiotics. Procedures: Cystoscopy, left ureteral stent insertion on 05/12/2023. Patient Condition at Discharge: Serious Plan - Discharge Summary Discharge Rx Participant: Yes New Discharge Prescriptions: Continue Pravastatin Sodium [Pravachol] 20 mg PO DAILY HYDROcodone/APAP 7.5-325MG [[place] 7.5-325] 1 tab PO Q4H PRN PRN Reason: Pain Celecoxib [CeleBREX] 200 mg PO BID Ondansetron Odt [Zofran ODT] 4 mg PO TID PRN PRN Reason: Nausea Aspirin EC [Ecotrin Low Dose] 81 mg PO DAILY Pantoprazole [Protonix] 40 mg PO DAILY Fenofibrate,Micronized [Fenofibrate] 200 mg PO DAILY levETIRAcetam [Keppra] 500 mg PO Q12HR Cholecalciferol [Vitamin D3 (125 Mcg = 5000 Iu)] 125 mcg PO DAILY No Action Cephalexin [Keflex] 500 mg PO Q6HR Discharge Medication List HYDROcodone/APAP 7.5-325MG [[place] 7.5-325] 1 tab PO Q4H PRN 06/27/17 [History] Pravastatin Sodium [Pravachol] 20 mg PO DAILY 06/27/17 [History] Aspirin EC [Ecotrin Low Dose] 81 mg PO DAILY 05/12/23 [History] Celecoxib [CeleBREX] 200 mg PO BID 05/12/23 [History] Cephalexin [Keflex] 500 mg PO Q6HR 05/12/23 [History] Cholecalciferol [Vitamin D3 (125 Mcg = 5000 Iu)] 125 mcg PO DAILY 05/12/23 [History] Fenofibrate,Micronized [Fenofibrate] 200 mg PO DAILY 05/12/23 [History] Ondansetron Odt [Zofran ODT] 4 mg PO TID PRN 05/12/23 [History] Pantoprazole [Protonix] 40 mg PO DAILY 05/12/23 [History] levETIRAcetam [Keppra] 500 mg PO Q12HR 05/12/23 [History] Follow up Appointment(s)/Referral(s): [facility], [NON-STAFF] - 05/23/23 [facility], [REFERRING] - (Antibiotics will be delivered tonight between 6PM-8PM) German Griffith DO [Primary Care Provider] - 1 Week Livan Bonilla MD [STAFF PHYSICIAN] - 1 Week Patient Instructions/Handouts: Sepsis (DC), Urethral Stent Placement (GEN) Activity/Diet/Wound Care/Special Instructions: Discharge home with IV as patient is to receive outpatient antibiotic therapy. Diet as tolerated. Activity as tolerated. Dr. Loco will make arrangements for patient to undergo outpatient cystoscopy, left ureteral stent removal, and ureteroscopic removal of her left ureteral calculus.
--- NOTE | 2023-05-22 16:58 | P.PN ---
Subjective Progress Note Date: 05/22/23 Hospital course: Patient is a very pleasant 67-year-old female with a past medical history of fibromyalgia, chronic pain, narcotic dependence, seizure disorder, and hyperlipidemia. She presented to the emergency department on 05/12/23 via transfer from [facility] secondary to obstructive ureteral stone after presenting there with complaints of fever, flank pain, and chills. She was transferred to our facility for treatment of pyelonephritis and obstructive nephrolithiasis. She was admitted under urology where patient underwent urgent cystoscopy with left stent insertion on 05/12/23 and later transferred to the ICU as patient required phenylephrine drip during postoperative period to maintain a map greater than 65. Blood culture obtained 05/12/23 resulting positive for ESBL, patient was started on meropenem and consult was placed to infectious disease. Hematology was consulted secondary to thrombocytopenia. On 05/16/23 patient was found to have increasing oxygenation needs and chest x-ray showed pulmonary edema with bilateral pleural effusions and patient was started on Lasix 40 mg IV twice daily. Echocardiogram then completed showing a preserved EF of 50-55%. Repeat blood culture obtained 05/14/23 was negative showing no growth. Patient remains on meropenem 1 g every 8 hours. Urology and infectious disease remained following. Physical exam: Patient seen and fully evaluated at bedside this morning. Patient reports only complaint is her chronic pain. She denies having any changes or increases in her chronic pain. Patient states that she feels pretty ready to go home. Anticipate discharge within the next 24 hours, awaiting to hear back from infectious disease for antibiotic management. Vital signs reviewed and stable. General: Nontoxic, no distress and appears stated age. Derm: Skin warm and dry, normal coloration for ethnicity. Head: Atraumatic, normocephalic and symmetric. Eyes: EOMs intact, no lid lag, and anicteric sclera Mouth: no lip lesions, mucus membranes moist Cardiovascular: regular rate and rhythm with normal S1S2, systolic murmur, positive posterior tibial pulses bilaterally, and cap refill < 2 seconds. Lungs: Respirations even, regular, and unlabored. Lungs CTA bilaterally, no rhonchi, no rales, no wheezing, and no accessory muscle usage. Abdominal: soft, nontender to palpation, no guarding, no appreciable organomegaly Ext: ROM intact. No gross muscle atrophy, no edema, no contractures Neuro: Speech clear, face symmetrical and CN II-XII grossly intact with no noted focal neuro deficits Psych: Alert and oriented to person, place, time, and situation. Appropriate and pleasant affect. Assessment and Plan of Care: ESBL bacteremia Acute pyelonephritis Severe sepsis secondary to above Obstructive nephrolithiasis, status post cystoscopy and left ureteral stent placement on 05/12/23 -Patient to continue with meropenem 1 g every 8 hours. -Midline was placed right upper extremity on 05/18/23 for anticipated discharge home with IV Invanz per infectious disease. -Urology planning to discharge patient later today. -Infectious disease following placing order for IV antibiotics with Invanz Acute hypoxic respiratory failure secondary to pulmonary edema and bilateral pleural effusions, likely fluid volume overload from diastolic heart failure exacerbation. Prerenal azotemia, secondary to IV diuresis Hypochloremic alkalosis, secondary to IV diuresis. Resolved Hypokalemia, Resolved -Pulmonology evaluated and cleared patient from pulmonology perspective for discharge. -Repeat x-ray completed at this morning showing improving mild pulmonary vascular congestion with only trace bilateral pleural effusions. -Patient to remain on telemetry monitoring. -Close monitoring of I's and O's. Thrombocytopenia. Unclear etiology believed to be reactive secondary to sepsis. Resolved. Normocytic anemia, resolved. Elevated d-dimer, > 34.00. Unclear possibly reactive secondary to severe sepsis. -Hematology evaluated and stated anemia workup consistent with anemia of inflammation stating no need for supplementation or further workup at this time. -CBC showed resolution of anemia with stable hemoglobin of 13.2 and resolution of thrombocytopenia with platelet count increasing to 362. Data and imaging reviewed: -Vital signs reviewed. Blood pressure 101/58, heart rate 82, respiratory rate 17, temp 97.3F, and SpO2 of 95% on room air. From a medical perspective, patient has been medically optimized for discharge with no further recommendations medication reconciliation was completed. Antibiotic orders have been written and placed for IV Invanz by infectious disease and patient is discharged by her primary admitting urology team. Thank you for allowing us to participate in the care of this pleasant patient. Do not hesitate to contact us with questions. Someone can be reached from the [facility] hospitalist group all hours of the day at [phone] or via perfect serve. Patient was seen independently by Nurse Pracitioner. This document was prepared using Dragon dictation software. Please allow for errors in customs import specialist, while rare they do occur. Wilmar Jhaveri LINING FELLER rendered care for this patient independently, reviewed the findings and plan as documented in the note above. I did not physically speak with or examine the patient on this date. Objective - Vital Signs Vital signs: Vital Signs Temp 97.3 F L 05/22/23 08:00 Pulse 82 05/22/23 08:00 Resp 17 05/22/23 08:00 BP 101/58 05/22/23 08:00 Pulse Ox 95 05/22/23 08:00 FiO2 21 05/21/23 08:33 Intake & Output 05/21/23 05/22/23 05/22/23 18:59 06:59 18:59 Intake Total 460 240 Output Total 300 350 Balance 160 -350 240 Weight 40.5 kg Intake: IV 220 .9@20 120 Meropenem 1 gm In Sodium 100 Chloride 0.9% 100 ml @ 33 .3 mls/hr IVPB Q8HR [facility] Rx#:[id number] Oral 240 240 Output: Urine 300 350 Other: Voiding Method External Catheter External Catheter # Bowel Movements 1 - Labs CBC & Chem 7: 05/21/23 06:39 05/21/23 06:39
== END 2023-05-22 15:29 | disposition home health service (06) | DRG 853 ==
LOC: EC 01:50 → 3SCARD 04:53 → 2SICU 14:46 → 3SCARD 05-18 11:44
PROVIDERS: ADMIT Urology; ATTEND Urology
PROC: 3E043XZ Introduction of Vasopressor into Central Vein, Percutaneous Approach (ICD-10-PCS; 2023-05-12)
PROC: 05HB33Z Insertion of Infusion Device into Right Basilic Vein, Percutaneous Approach (ICD-10-PCS; 2023-05-18)
PROC: 0T778DZ Dilation of Left Ureter with Intraluminal Device, Via Natural or Artificial Opening Endoscopic (ICD-10-PCS; principal; 2023-05-18 12:50)
DX: A41.51 Sepsis due to Escherichia coli [E. coli] (principal); I50.31 Acute diastolic (congestive) heart failure; J96.01 Acute respiratory failure with hypoxia; R65.21 Severe sepsis with septic shock; N17.9 Acute kidney failure, unspecified; E87.3 Alkalosis; N13.6 Pyonephrosis; F11.20 Opioid dependence, uncomplicated; Z16.12 Extended spectrum beta lactamase (ESBL) resistance; J98.11 Atelectasis; Z16.24 Resistance to multiple antibiotics; D50.9 Iron deficiency anemia, unspecified; I11.0 Hypertensive heart disease with heart failure; D69.59 Other secondary thrombocytopenia; E87.8 Other disorders of electrolyte and fluid balance, not elsewhere classified; G40.909 Epilepsy, unspecified, not intractable, without status epilepticus; J44.9 Chronic obstructive pulmonary disease, unspecified; Z28.310 Unvaccinated for COVID-19; E78.5 Hyperlipidemia, unspecified; M79.7 Fibromyalgia; F41.0 Panic disorder [episodic paroxysmal anxiety]; G89.4 Chronic pain syndrome; I34.0 Nonrheumatic mitral (valve) insufficiency; R79.1 Abnormal coagulation profile; Z79.82 Long term (current) use of aspirin; Z79.1 Long term (current) use of non-steroidal anti-inflammatories (NSAID); Z79.899 Other long term (current) drug therapy; Z88.2 Allergy status to sulfonamides
CPT/HCPCS: 36410; 36415; 71045; 76937; 80048; 80053; 80074; 82150; 82330; 82525; 82607; 82728; 82746; 83540; 83550; 83605; 83690; 83735; 83880; 83921; 84132; 84484; 85025; 85027; 85379; 85384; 85610; 85730; 87040; 87077; 87186; 87390; 87635; 93306; 94640; 94760; 96361; 96365; 96375; 99291

== ENCOUNTER → 2023-06-05 | Outpatient (CLI) | payer MEDICARE, OTHER ==
[2023-06-05 20:05] LABS: Basophils # (A) 0.06 X 10*3/uL (0.00-0.10); Basophils % (A) 0.8 %; Eosinophils # (A) 0.47 X 10*3/uL (0.04-0.35); Eosinophils % (A) 6.2 %; HCT 37.1 % (37.2-46.3); HGB 11.7 g/dL (12.0-15.0); Lymphocytes # (A) 1.97 X 10*3/uL (0.90-5.00); MCH 28.5 pg (27.0-32.0); MCHC 31.5 g/dL (32.0-37.0); MCV 90.5 FL (80.0-97.0); Monocytes # (A) 0.49 X 10*3/uL (0.20-1.00); Monocytes % (A) 6.5 %; NRBC Per 100 WBC 0 X 10*3/uL (0.00-0.01); Neutrophils # (A) 4.57 X 10*3/uL (1.80-7.70); Neutrophils % (A) 60.1 %; Platelet Count 345 X 10*3/uL (140-440); RDW 13.8 % (11.5-14.5); WBC 7.59 X 10*3/uL (4.50-10.00)
[2023-06-05 20:16] LABS: Appearance,Urine Turbid (Clear); Bilirubin,Urine Negative (Negative); Blood,Urine Large (Negative); Color,Urine Dark Yellow (Yellow); Ketones,Urine Trace (Negative); Nitrite,Urine Negative (Negative); PH, Urine 5.5; Specific Gravity,Urine 1.021 (1.001-1.030)
[2023-06-05 20:33] LABS: Blood Urea Nitrogen 14.4 mg/dL (9.0-27.0); Carbon Dioxide 21.8 mmol/L (21.6-31.8); Chloride 108 mmol/L (96-109); Glucose 111 mg/dL (70-110); Potassium 4.2 mmol/L (3.5-5.5); Sodium 143 mmol/L (135-145)
[2023-06-05 22:03] LABS: Bacteria,Urine 4+ (None Seen); Calcium Oxalate Crystals,Urine Present (None Seen)
== END | disposition home or self-care (01) ==
LOC: LABPAT 14:20
PROVIDERS: ATTEND Urology
DX: Z01.812 Encounter for preprocedural laboratory examination (principal); N20.1 Calculus of ureter
CPT/HCPCS: 36415; 80048; 81001; 85025; 87086

== ENCOUNTER 2023-06-12 10:59 | Day surgery (SDC) | payer MEDICARE, OTHER ==
--- NOTE | 2023-06-12 09:00 | P.HPIHPCON ---
History of Present Illness H&P Date: 06/12/23 Chief Complaint: Left ureteral stone This is a 67-year-old female with a history of a 3 mm left-sided ureteral stone status post stent insertion for septic stone on May 12. Presents today for left-sided ureteroscopy, with holmium laser.The risk of surgery which includes but not limited to bleeding, infection, injury to the ureter. Risk of anesthesia was also discussed Consent for Procedure: I have explained the operation/procedure to the patient, including the risks, benefits, side effects, alternative therapies (including not receiving the proposed treatment or service), the likelihood of the patient achieving his/her goals, and potential recuperation problems for the procedure/sedation/analgesia, as well as any blood products, if indicated. I also explained to the patient the risks, benefits and side effects of the alternatives, as well as the risks related to not receiving the proposed procedure, care, treatment, or services. Past Medical History Past Medical History: Fibromyalgia, Hyperlipidemia, Seizure Disorder Additional Past Medical History / Comment(s): 2-3 seizures 2018 and none since started on keppra History of Any Multi-Drug Resistant Organisms: ESBL Date of last positivie culture/infection: 05/12/23 MDRO Source:: Blood Past Surgical History: Hysterectomy, Orthopedic Surgery Additional Past Surgical History / Comment(s): total shoulder replacement 2018 - fell and shattered shoulder w/ seizure Past Anesthesia/Blood Transfusion Reactions: No Reported Reaction Smoking Status: Never smoker - Past Family History Father Family Medical History: Deep Vein Thrombosis (DVT) Mother Family Medical History: Osteoarthritis (OA) Medications and Allergies Home Medications Medication Instructions Recorded Confirmed Type HYDROcodone/APAP 7.5-325MG [[place] 1 tab PO Q4H PRN 06/27/17 06/07/23 History 7.5-325] Pravastatin Sodium [Pravachol] 20 mg PO QAM 06/27/17 06/07/23 History Celecoxib [CeleBREX] 200 mg PO BID 05/12/23 06/07/23 History Cholecalciferol [Vitamin D3 (125 125 mcg PO DAILY 05/12/23 06/07/23 History Mcg = 5000 Iu)] Fenofibrate,Micronized 200 mg PO QAM 05/12/23 06/07/23 History [Fenofibrate] levETIRAcetam [Keppra] 500 mg PO Q12HR 05/12/23 06/07/23 History Magnesium 400 mg PO QAM 06/07/23 06/07/23 History Potassium Citrate 99 mg PO QAM 06/07/23 06/07/23 History Allergies Allergy/AdvReac Type Severity Reaction Status Date / Time Sulfa (Sulfonamide Allergy Rash/Hives Verified 06/07/23 12:00 Antibiotics) Surgical - Exam - General no distress, no pain - Eyes normal ocular movement, no pale - ENT normal nares, normal mucosa - Respiratory normal expansion, normal respiratory effort - Abdomen Abdomen: soft, non tender Assessment and Plan Assessment: OR for left-sided ureteroscopy, holmium laser lithotripsy, stone basketing and stent removal
[~2023-06-12 10:59] MED LIST: DEXAMETHASONE SOD PHOSPHATE 4 MG/ML 1 ML VIAL IV ONE; LACTATED RINGERS 1,000 ML IV SCH; ONDANSETRON 4 MG/2 ML VIAL IVP ONE
[2023-06-12 12:51] LABS: Partial Thromboplastin Time 23.3 sec (22.0-30.0); Prothrombin Time 11.4 sec (10.0-12.5)
[2023-06-12] MEDS ORDERED: PROPOFOL 10 MG/ML 20 ML VIAL IV ONE (13:30)
[2023-06-12] MEDS ORDERED: LIDOCAINE 1% INJ 10MG/ML (20 ML MDV) ONE (13:30)
[2023-06-12] MEDS ORDERED: MIDAZOLAM 2 MG/2 ML VIAL ONE (13:30)
[2023-06-12] MEDS ORDERED: fentaNYL (PF) 50 MCG/ML 2 ML AMP ONE (13:30)
[2023-06-12] MEDS: HYDROmorphone 0.5 MG/0.5 ML SYRINGE IVP PRN ×2 (14:32→14:55)
[2023-06-12 14:41] VITALS: TEMP 97
--- NOTE | 2023-06-12 14:42 | P.OP ---
Date of Procedure: 06/12/23 Preoperative Diagnosis: Left ureteral stone Postoperative Diagnosis: same Procedure(s) Performed: Cystoscopy, left ureteroscopy, holmium laser lithotripsy, stone basketing, stent exchange Implants: 6-Mozambican by 26 cm stent to the left ureter Anesthesia: ANURAG Surgeon: Fawad Loco Estimated Blood Loss (ml): 5 Pathology: other (left ureteral stone) Condition: stable Disposition: PACU Indications for Procedure: This is a 67-year-old female with a history of a 3 mm left-sided ureteral stone status post stent insertion for septic stone on May 12. Presents today for left-sided ureteroscopy, with holmium laser.The risk of surgery which includes but not limited to bleeding, infection, injury to the ureter. Risk of anesthesia was also discussed Operative Findings: Left proximal ureter stone was successfully fragmented, significant edema involving the ureter Description of Procedure: Patient brought to the operating room, general anesthesia was induced. She was prepped and draped in sterile fashion and placed in dorsal lithotomy position. Cystoscopy fitted with a 21-Moz[place]ican sheath was inserted per urethra, cystoscopy was performed which showed no abnormality within the bladder. Attention was then carried to the left ureteral orifice, the stent was grasped and removed intact. Next a semirigid ureteroscope was inserted per urethra and advanced up the left ureteral orifice, the scope was advanced all the way up to the proximal ureter which showed no stones along the course of the ureter but I was only able to advance the scope to the distal end of the proximal ureter. Of note there was significant ureteral edema more than anticipated post stent. At this time a sensor wire was advanced through the ureteroscope and the ureteroscope was withdrawn with the wire in place. Next under fluoroscopy 1113 Moz[place]ican access sheath was passed over the wire into the proximal ureter. Next a flexible ureteroscope was inserted through the access sheath, at this point the stone was encountered in the proximal ureter, I attempted to laser the stone but at this time it migrated to the midpole of the kidney. Using the holmium laser the stone was fragmented, sizable stone fragments were removed using the stone basket. Repeat renoscopy showed no stones within the kidney or any sizable fragments. Pullback ureteroscopy was performed which showed no ureteral stones, of note along the proximal ureter there was a small area of ureteral mucosal separation, but no clear evidence of ureteral perforation, given this finding decision was made to proceed with a stent. At this time a wire was advanced through the ureteroscope and the ureteroscope was withdrawn with the wire place. The rest of the ureter was within normal limits. At this point a ureteral stent was passed over the wire, the proximal curl was visualized on fluoroscopy and the distal curl was visualized using the cystoscope. The bladder was emptied at the end of the case. Patient tolerated procedure well was taken to recovery in stable condition. She will follow up in 2 weeks for stent removal
--- NOTE | 2023-06-12 15:23 | XR ---
EXAMINATION TYPE: XR KUB DATE OF EXAM: 06/12/2023 Comparison: CT 05/11/2023 Clinical History: 67-year-old female pre surgical kidney stone Findings: Left-sided ureteral stent. Left-sided pelvic phleboliths. No definite suspicious calcifications. Seen . Scattered mild stool. No dilated small bowel. Impression: Left-sided ureteral stent. No definite suspicious calcifications seen.
[2023-06-12] MEDS ORDERED: HYDROcodone/APAP 7.5-325MG 1 EACH TAB ONE (15:44)
[2023-06-12 15:53] VITALS: RESP 20
[2023-06-12 16:16] VITALS: BP 128/78; PULSE 72
--- NOTE | 2023-06-12 16:47 | FL ---
EXAMINATION TYPE: FL urography retrograde Intraoperative/procedural fluoroscopic services were provid ed. Total fluoroscopy time is 28.5 seconds with a total of 6 submitted images to PACS. Please see the operative/procedural note for further details. DAP: [id number] mGym2
== END 2023-06-12 16:42 | disposition home or self-care (01) ==
LOC: OR 10:59
PROVIDERS: ATTEND Urology
DX: N20.1 Calculus of ureter (principal); M79.7 Fibromyalgia; G40.909 Epilepsy, unspecified, not intractable, without status epilepticus; E78.5 Hyperlipidemia, unspecified; Z87.442 Personal history of urinary calculi; Z79.899 Other long term (current) drug therapy
CPT/HCPCS: 85610; 85730; 82365; 74420; 74018; 52356; C2625; C1769; J2250; J1100; J0690; J2405; J2001; J3010; J2704; J1170

== ENCOUNTER 2023-06-12 20:02 | Emergency (ER) | payer MEDICARE, OTHER ==
--- NOTE | 2023-06-12 20:05 | ED ---
General Adult HPI - General Stated complaint: Left Side leg pain-post surgery Time Seen by Provider: 06/12/23 20:04 Source: RN notes reviewed - History of Present Illness Initial comments: 67-year-old female presents the emergency department with a chief complaint of left-sided flank pain. Patient reports she had a recent lithotripsy performed by Dr. Baker at this facility 06/13/2022. she reports worsening left flank pain. Reports she has not accepted any. Her follow-up after her procedure. She reports pain and blood in her urine. Denies any known fevers, nausea or vomiting. - Related Data Home Medications Medication Instructions Recorded Confirmed HYDROcodone/APAP 7.5-325MG [Lititz 1 tab PO Q4H PRN 06/27/17 06/12/23 7.5-325] Pravastatin Sodium [Pravachol] 20 mg PO QAM 06/27/17 06/12/23 Celecoxib [CeleBREX] 200 mg PO BID 05/12/23 06/12/23 Cholecalciferol [Vitamin D3 (125 125 mcg PO DAILY 05/12/23 06/12/23 Mcg = 5000 Iu)] Fenofibrate,Micronized 200 mg PO QAM 05/12/23 06/12/23 [Fenofibrate] levETIRAcetam [Keppra] 500 mg PO Q12HR 05/12/23 06/12/23 Magnesium 400 mg PO QAM 06/07/23 06/12/23 Potassium Citrate 99 mg PO QAM 06/07/23 06/12/23 Previous Rx's Medication Instructions Recorded Ketorolac [Toradol] 10 mg PO Q6HR #10 tab 06/12/23 Allergies Allergy/AdvReac Type Severity Reaction Status Date / Time Sulfa (Sulfonamide Allergy Rash/Hives Verified 06/12/23 11:38 Antibiotics) Review of Systems ROS Statement: Those systems with pertinent positive or pertinent negative responses have been documented in the HPI. ROS Other: All systems not noted in ROS Statement are negative. Past Medical History Past Medical History: Fibromyalgia, Hyperlipidemia, Seizure Disorder History of Any Multi-Drug Resistant Organisms: ESBL Date of last positivie culture/infection: 06/05/23 MDRO Source:: Urine Past Surgical History: Hysterectomy, Orthopedic Surgery Past Anesthesia/Blood Transfusion Reactions: No Reported Reaction Smoking Status: Never smoker - Past Family History Father Family Medical History: Deep Vein Thrombosis (DVT) Mother Family Medical History: Osteoarthritis (OA) General Exam - General Exam Comments Initial Comments: Visual Physical Exam Vital signs reviewed General: Well-appearing, nontoxic, no acute distress. Head: Normocephalic, atraumatic Eyes: PERRLA, EOMI ENT: Airway patent Chest: Nonlabored breathing Skin: No visual rash, normal skin tone Neuro: Alert and oriented 3 Musculoskeletal: No gross abnormalities General: Alert, in no acute distress Head: atraumatic normocephalic. Eyes PERRL, EOMI intact, mucous membranes moist Respiratory: Lungs clear to auscultation bilaterally Cardiovascular: Heart rate regular rate and rhythm Abdominal: Soft without guarding or rebound Extremities: Normal inspection with full range of motion and normal capillary refill Neuroogic: alert and oriented 3, CN II-XII intact, able to ambulate with steady gait Skin: warm dry and intact with normal color Course Vital Signs 06/12/23 06/12/23 20:23 23:19 Temperature 97.5 F L Pulse Rate 84 73 Respiratory 18 18 Rate Blood Pressure 108/65 134/77 O2 Sat by Pulse 94 L 96 Oximetry - Reevaluation(s) Reevaluation #1: 06/12/23 22:15 patient reevaluated and updated on results. Patient was offered pain medications and fluids however she declined. Patient verbalized that she'll be discharged home. Medical Decision Making - Medical Decision Making I performed the quick note portion of this exam, verbal signature Uzma grossman PA-C Was pt. sent in by a medical professional or institution ([place], INSURANCE BUSINESS ANALYST, urgent care, hospital, or halfway...) When possible be specific @ -[No] Did you speak to anyone other than the patient for history (EMS, parent, family, police, friend...)? What history was obtained from this source @ -[No] Did you review nursing and triage notes (agree or disagree)? Why? @ -[I reviewed and agree with nursing and triage notes] Were old charts reviewed (outside hosp., previous admission, EMS record, old EKG, old radiological studies, urgent care reports/EKG's, halfway records)? Report findings @ -Procedure notes from 06/13/2022 Differential Diagnosis (chest pain, altered mental status, abdominal pain women, abdominal pain men, vaginal bleeding, weakness, fever, dyspnea, syncope, headache, dizziness, GI bleed, back pain, seizure, CVA, palpatations, mental health, musculoskeletal)? @ -[not applicable] EKG interpreted by me (3pts min.). @ -[As above] X-rays interpreted by me (1pt min.). @ -[None done] CT interpreted by me (1pt min.). @ -[None done] U/S interpreted by me (1pt. min.). @ Ultrasound reveals uretal stent in correct position, marked hydronephrosis What testing was considered but not performed or refused? (CT, X-rays, U/S, labs)? Why? @ -[None] What meds were considered but not given or refused? Why? @ -[None] Did you discuss the management of the patient with other professionals (professionals i.e. , PA, INSURANCE BUSINESS ANALYST, lab, RT, psych nurse, social welfare clerk, glass sander belt, teacher, worldwide chief creative officer, case maker)? Give summary @ -[No] Was smoking cessation discussed for >3mins.? @ -[No] Was critical care preformed (if so, how long)? @ -[No] Were there social determinants of health that impacted care today? How? (Homelessness, low income, unemployed, alcoholism, drug addiction, transportation, low edu. Level, literacy, decrease access to med. care, [facility], rehab)? @ -[No] Was there de-escalation of care discussed even if they declined (Discuss DNR or withdrawal of care, Hospice)? DNR status @ -[No] What co-morbidities impacted this encounter? (DM, HTN, Smoking, COPD, CAD, Cancer, CVA, ARF, Chemo, Hep., AIDS, mental health diagnosis, sleep apnea, morbid obesity)? @ -[None] Was patient admitted / discharged? Hospital course, mention meds given and route, prescriptions, significant lab abnormalities, going to OR and other pertinent info. @-Discharged. 67-year-old female who presents the emergency department with flank pain. Patient had a thorough history and physical exam performed. There are no neurologic focal deficits. Heart rate is regular rate and rhythm. Lungs are clear to auscultation bilaterally abdomen is soft and nontender, Patient had laboratory studies which were essentially unremarkable. I discussed results in detail the patient verbalized understanding all questions were addressed. She was offered 1 L of IV fluids and pain management however she declined. Return precautions were discussed at length. Educated on the impor tance of follow-up with PCP and Urology in 1-2 days. Discharged in stable condition. Case is discussed with Dr. Cartagena, ED attending who agrees with plan of care Undiagnosed new problem with uncertain prognosis? @ -[No] Drug Therapy requiring intensive monitoring for toxicity (Heparin, Nitro, Insulin, Cardizem)? @ -[No] Were any procedures done? @ -[No] Diagnosis/symptom? @ -Left Flank Pain Acute, or Chronic, or Acute on Chronic? @ -Acute Uncomplicated (without systemic symptoms) or Complicated (systemic symptoms)? @ -Uncomplicated Side effects of treatment? @ -[No] Exacerbation, Progression, or Severe Exacerbation? @ -[No] Poses a threat to life or bodily function? How? (Chest pain, [place], [place], pneumonia, PE, COPD, DKA, ARF, appy, cholecystitis, CVA, Diverticulitis, Homicidal, Suicidal, threat to staff... and all critical care pts) @ -Low Likelijood - Lab Data Result diagrams: 06/12/23 21:02 06/12/23 21:02 Lab Results 06/12/23 06/12/23 06/12/23 Range/Units 20:38 21:02 21:02 WBC 13.4 H (3.8-10.6) k/uL RBC 4.39 (3.80-5.40) m/uL Hgb 12.5 (11.4-16.0) gm/dL Hct 39.7 (34.0-46.0) % MCV 90.3 (80.0-100.0) fL MCH 28.4 (25.0-35.0) pg MCHC 31.5 (31.0-37.0) g/dL RDW 14.6 (11.5-15.5) % Plt Count 349 (150-450) k/uL MPV 7.6 Neutrophils % 92 % Lymphocytes % 4 % Monocytes % 2 % Eosinophils % 1 % Basophils % 0 % Neutrophils # 12.4 H (1.3-7.7) k/uL Lymphocytes # 0.6 L (1.0-4.8) k/uL Monocytes # 0.3 (0-1.0) k/uL Eosinophils # 0.2 (0-0.7) k/uL Basophils # 0.0 (0-0.2) k/uL Sodium 139 (137-145) mmol/L Potassium 3.7 (3.5-5.1) mmol/L Chloride 106 (98-107) mmol/L Carbon Dioxide 19 L (22-30) mmol/L Anion Gap 14 mmol/L BUN 14 (7-17) mg/dL Creatinine 0.66 (0.52-1.04) mg/dL Est GFR (CKD-EPI)AfAm >90 (>60 ml/min/1.73 sqM) Est GFR (CKD-EPI)NonAf >90 (>60 ml/min/1.73 sqM) Glucose 210 H (74-99) mg/dL Calcium 9.7 (8.4-10.2) mg/dL Total Bilirubin 0.4 (0.2-1.3) mg/dL AST 27 (14-36) U/L ALT 23 (4-34) U/L Alkaline Phosphatase 64 (38-126) U/L Total Protein 6.9 (6.3-8.2) g/dL Albumin 3.8 (3.5-5.0) g/dL Urine Color Yellow Urine Appearance Cloudy H (Clear) Urine pH 6.0 (5.0-8.0) Ur Specific [place] 1.021 (1.001-1.035) Urine Protein 2+ H (Negative) Urine Glucose (UA) 4+ H (Negative) Urine Ketones Trace H (Negative) Urine Blood Large H (Negative) Urine Nitrite Negative (Negative) Urine Bilirubin Negative (Negative) Urine Urobilinogen <2.0 (<2.0) mg/dL Ur Leukocyte Esterase Large H (Negative) Urine RBC >182 H (0-5) /hpf Urine WBC >182 H (0-5) /hpf Urine WBC Clumps Few H (None) /hpf Ur Squamous Epith Cells 5 H (0-4) /hpf Urine Bacteria Rare H (None) /hpf Urine Mucus Moderate H (None) /hpf Disposition Clinical Impression: History of lithotripsy, Flank pain Disposition: HOME SELF-CARE Condition: Stable Instructions (If sedation given, give patient instructions): Urethral Stent Placement (DC), Lithotripsy (DC) Additional Instructions: Please follow up with Urologist tomorrow Please return if worsening pain, high fever develops Is patient prescribed a controlled substance at d/c from ED?: No Referrals: German Griffith DO [Primary Care Provider] - 1-2 days Fawad Loco MD [STAFF PHYSICIAN] - 1-2 days Time of Disposition: 22:44
[2023-06-12 20:43] VITALS: RESP 18; TEMP 97.5
[2023-06-12 21:16] LABS: Basophils % (A) 0 %; Eosinophils # (A) 0.2 k/uL (0-0.7); Eosinophils % (A) 1 %; HCT 39.7 % (34.0-46.0); HGB 12.5 gm/dL (11.4-16.0); Lymphocytes # (A) 0.6 k/uL (1.0-4.8); Lymphocytes % (A) 4 %; MCH 28.4 pg (25.0-35.0); MCHC 31.5 g/dL (31.0-37.0); MCV 90.3 fL (80.0-100.0); Mean Platelet Volume 7.6; Monocytes # (A) 0.3 k/uL (0-1.0); Monocytes % (A) 2 %; Neutrophils # (A) 12.4 k/uL (1.3-7.7); Neutrophils % (A) 92 %; Platelet Count 349 k/uL (150-450); RBC 4.39 m/uL (3.80-5.40); RDW 14.6 % (11.5-15.5); WBC 13.4 k/uL (3.8-10.6)
[2023-06-12 21:18] LABS: Appearance,Urine Cloudy (Clear); Bacteria,Urine Rare /hpf; Bilirubin,Urine Negative (Negative); Blood,Urine Large (Negative); Color,Urine Yellow; Glucose,Urine (UA) 4+ (Negative); Ketones,Urine Trace (Negative); Leukocyte Esterase,Urine Large (Negative); Mucus,Urine Moderate /hpf; Nitrite,Urine Negative (Negative); Protein,Urine 2+ (Negative); RBC,Urine >182 /hpf (0-5); Specific Gravity,Urine 1.021 (1.001-1.035); Squamous Epithelial Cell,Urine 5 /hpf (0-4); Urobilinogen,Urine <2.0 mg/dL (<2.0); WBC,Urine >182 /hpf (0-5)
[2023-06-12 21:24] LABS: ALT 23 U/L (4-34); AST 27 U/L (14-36); African American GFR (CKD) >90 (>60 ml/min/1.73 sqM); Albumin 3.8 g/dL (3.5-5.0); Alkaline Phosphatase 64 U/L (38-126); Anion Gap 14 mmol/L; Blood Urea Nitrogen 14 mg/dL (7-17); Calcium 9.7 mg/dL (8.4-10.2); Carbon Dioxide 19 mmol/L (22-30); Chloride 106 mmol/L (98-107); Glucose 210 mg/dL (74-99); Non-African American GFR(CKD) >90 (>60 ml/min/1.73 sqM); Potassium 3.7 mmol/L (3.5-5.1); Sodium 139 mmol/L (137-145); Total Bilirubin 0.4 mg/dL (0.2-1.3); Total Protein 6.9 g/dL (6.3-8.2)
--- NOTE | 2023-06-12 21:47 | US ---
EXAMINATION TYPE: US kidneys/renal and bladder DATE OF EXAM: 06/12/2023 COMPARISON: NONE CLINICAL INDICATION: Female, 67 years old with history of left flank pain s/p lithotripsy; Lithotrips y today. Pt had stent put in lt kidney May 2023. Per pt that stent was infected and replaced stent today as well as did a lithotripsy. Pain on left side EXAM MEASUREMENTS: Right Kidney: 11.7 x 5.3 x 5.7 cm Left Kidney: 12.9 x 4.7 x 4.6 cm Right Kidney: Small anechoic area seen sup pole measuring 0.7 x 0.9 x 0.8cm Left Kidney: Dilated renal pelvis. Stent seen near inf pole Bladder: Stent seen on lt side. Jets not seen Bilateral Jets seen: No. Bladder was mostly empty IMPRESSION: 1. Left renal stent visualized and appears within appropriate position with mild dilation of the pel vis. No renal calculi definitively visualized. 2. Right superior pole is anechoic probable simple cyst.
[2023-06-12] MEDS ORDERED: SODIUM CHLORIDE 0.9% 1,000 ML IV ONE (22:03)
[2023-06-12 23:40] VITALS: BP 134/77; PULSE 73
== END 2023-06-12 23:26 | disposition home or self-care (01) ==
LOC: EC 20:02
DX: Z87.442 Personal history of urinary calculi (principal); E78.5 Hyperlipidemia, unspecified; Z79.899 Other long term (current) drug therapy; Z88.2 Allergy status to sulfonamides
CPT/HCPCS: 36415; 76770; 80053; 81001; 85025; 99284